=== PATIENT | female | born 1965 ===

== ENCOUNTER → 2020-01-01 14:53 | Outpatient (BNVA) | payer OTHER, SELFPAY | PROVIDERS: PCP Internal Medicine; Visit Provider Anesthesiology | DX: Z76.89 Persons encountering health services in other specified circumstances (principal) ==

== ENCOUNTER 2020-03-10 10:12 | Outpatient (REF) | payer OTHER, SELFPAY ==
--- NOTE | 2020-03-10 10:20 | MM_ITS ---
EXAMINATION: MM SCREENING DIGITAL BREAST TOMOSYNTHESIS, BILATERAL CLINICAL INFORMATION: Screening. Asymptomatic. The lifetime risk of breast cancer based on the Tyrer-Cuzick Model is 7%. COMPARISON: Mammography: 03/05/2019, 01/10/2018, 07/12/2017, 12/30/2016 TECHNIQUE: Digital breast tomosynthesis is performed in both the craniocaudal and mediolateral oblique views along with computer-aided detection (CAD). Synthesized 2D images are generated from the tomosynthesis. Additional left MLO view is provided. FINDINGS: There are scattered areas of fibroglandular density (ACR BI-RADS breast composition Category b). There are no significant masses, abnormal calcifications, or other abnormalities. Parenchymal pattern is similar to prior studies. MM/MM tomosynthesis screening BI IMPRESSION: No mammographic evidence of malignancy. ASSESSMENT: BI-RADS 1: Negative RECOMMENDATION: Routine annual mammography screening. This patient's information was entered into a reminder system with a target due date for their next mammogram.
== END 2020-03-10 10:13 | disposition home or self-care (01) ==
LOC: HO.MAMMO 10:12
PROVIDERS: Visit Provider Hospitalist
DX: Z12.31 Encounter for screening mammogram for malignant neoplasm of breast (principal)
CPT/HCPCS: 77063; 77067

== ENCOUNTER 2020-04-27 07:17 | Outpatient (REF) | payer OTHER, SELFPAY ==
[2020-04-27 08:53] LABS: Amylase 67 U/L (28-100); Lipase 46 U/L (8-78)
== END 2020-04-27 07:18 | disposition home or self-care (01) ==
LOC: HO.LAB 07:17
PROVIDERS: PCP Hospitalist; Visit Provider Hospitalist
DX: R10.9 Unspecified abdominal pain (principal)
CPT/HCPCS: 36415; 82150; 83690

== ENCOUNTER → 2020-05-03 08:01 | Outpatient (BNVA) | payer OTHER, SELFPAY | PROVIDERS: PCP Hospitalist; Visit Provider Nurse Practitioner Family ==

== ENCOUNTER 2020-06-08 06:27 | Outpatient (REF) | payer OTHER, SELFPAY ==
--- NOTE | ~2020-06-08 | FL_ITS ---
EXAMINATION: XR FLUOROSCOPY WITH IMAGES CLINICAL INFORMATION: M47.27 - Other spondylosis with radiculopathy COMPARISON: Radiographs lumbar spine 01/15/2018 TECHNIQUE: Fluoroscopy performed by Fabiana Lyons NP. Fluoroscopy time: 0.4 minutes DAP: 2.03 Gycm2 Images: 2 FINDINGS: There are spinal needles at the outer aspect bilateral L5-S1 neural foramen. There is contrast seen in the nerve sheaths and transforaminal epidural extension. FL/FL guidance in treatment room IMPRESSION: Fluoroscopy for pain management procedures.
== END 2020-06-08 06:28 | disposition home or self-care (01) ==
LOC: HO.RADIR 06:27
PROVIDERS: Visit Provider Anesthesiology
DX: M47.27 Other spondylosis with radiculopathy, lumbosacral region (principal); M51.36 Other intervertebral disc degeneration, lumbar region; M53.3 Sacrococcygeal disorders, not elsewhere classified
CPT/HCPCS: 64483; J3300; Q9967

== ENCOUNTER → 2020-07-13 11:23 | Outpatient (BNVA) | payer OTHER, SELFPAY | PROVIDERS: PCP Hospitalist; Visit Provider Nurse Practitioner Family ==

== ENCOUNTER 2020-07-22 08:57 | Outpatient (REF) | payer OTHER, SELFPAY ==
[2020-07-22 11:25] LABS: Hematocrit 41.1 % (37-47); Hemoglobin 12.7 g/dl (12.0-16.0); Mean Corpuscular HGB Conc 30.9 g/dl (31.0-35.0); Mean Corpuscular Hemoglobin 27.5 pg (27.0-33.0); Mean Platelet Volume 9.4 fL (9.4-12.3); Platelet Count 261 X10*3/uL (160-400); Red Blood Count 4.62 X10*6/uL (4.20-5.50); Red Cell Distribution Width 14.9 % (11.0-16.0); White Blood Count 5.5 X10*3/uL (4.8-10.8)
[2020-07-22 11:47] LABS: Alanine Aminotransferase 17 U/L (0-31); Albumin Level 4.3 g/dL (3.5-5.0); Alkaline Phosphatase 72 U/L (39-117); Anion Gap 12 (12-20); Aspartate Amino Transferase 15 U/L (5-31); Bilirubin Total 0.5 mg/dL (0.0-1.0); Blood Urea Nitrogen 11 mg/dL (9-16); Calcium 9.4 mg/dL (8.4-10.2); Carbon Dioxide 30 mmol/L (22-29); Chloride 108 mmol/L (96-108); Estimated Glomerular Filt Rate > 60; Glucose Fasting 92 mg/dL (60-99); Potassium 4.5 mmol/L (3.3-5.1); Sodium 145 mmol/L (135-145); Total Protein 7.1 g/dL (6.5-8.0)
[2020-07-22 12:08] LABS: TSH reflex Free T4 1.47 uIU/mL (0.32-4.0)
[2020-07-23 04:42] LABS: Triiodothyronine T3 Free 3.2 pg/mL (2.3-4.2)
== END 2020-07-22 08:58 | disposition home or self-care (01) ==
LOC: HO.WFDLDS 08:57
PROVIDERS: Visit Provider Nurse Practitioner Family
DX: R68.89 Other general symptoms and signs (principal)
CPT/HCPCS: 36415; 80053; 84443; 84481; 85027

== ENCOUNTER 2020-09-13 09:32 | Outpatient (REF) | payer OTHER, SELFPAY ==
[2020-09-17 03:31] LABS: HPV mRNA E6/E7 rflx Not Detected (Not Detected)
== END 2020-09-13 09:33 | disposition home or self-care (01) ==
LOC: HO.LAB 09:32
PROVIDERS: PCP Hospitalist; Visit Provider Advanced Practice Midwife
DX: Z01.411 Encounter for gynecological examination (general) (routine) with abnormal findings (principal); Z11.51 Encounter for screening for human papillomavirus (HPV); R39.15 Urgency of urination; R63.5 Abnormal weight gain
CPT/HCPCS: 87624; 88142

== ENCOUNTER 2020-10-21 14:32 | Outpatient (REF) | payer OTHER, SELFPAY ==
[2020-10-21 15:15] LABS: Influenza A PCR NEGATIVE (Negative); Influenza B PCR NEGATIVE (Negative); Resp Syncy Virus RNA Qual PCR NEGATIVE (Negative); SARS COV2 PCR INHOUSE NEGATIVE (Negative)
== END 2020-10-21 14:33 | disposition home or self-care (01) ==
LOC: HO.LNP 14:32
PROVIDERS: Visit Provider Family Medicine
DX: B34.9 Viral infection, unspecified (principal); Z20.822 Contact with and (suspected) exposure to COVID-19
CPT/HCPCS: 0241U

== ENCOUNTER 2020-11-24 15:06 | Outpatient (REF) | payer OTHER, SELFPAY ==
[2020-11-24 16:20] LABS: Alanine Aminotransferase 24 U/L (0-31); Albumin Level 4.6 g/dL (3.5-5.0); Alkaline Phosphatase 78 U/L (39-117); Anion Gap 14 (12-20); Aspartate Amino Transferase 18 U/L (5-31); Bilirubin Total 0.4 mg/dL (0.0-1.0); Blood Urea Nitrogen 14 mg/dL (9-16); Calcium 9.8 mg/dL (8.4-10.2); Carbon Dioxide 26 mmol/L (22-29); Chloride 106 mmol/L (96-108); Estimated Glomerular Filt Rate > 60; Glucose Random 86 mg/dL (60-115); Potassium 4.2 mmol/L (3.3-5.1); Sodium 142 mmol/L (135-145); Total Protein 7.4 g/dL (6.5-8.0)
[2020-11-24 16:40] LABS: TSH reflex Free T4 1.44 uIU/mL (0.32-4.0)
[2020-11-24 17:18] LABS: Erythrocyte Sedimentation Rate 22 MM/HR (0-20)
[2020-11-27 13:55] LABS: TS Negative Control Passed; TS Panel A 1; TS Panel B 1; TS Positive Control Passed; TSpotTB Negative (SeeBelow)
== END 2020-11-24 15:07 | disposition home or self-care (01) ==
LOC: HO.LAB 15:06
PROVIDERS: PCP Hospitalist; Visit Provider Family Medicine
DX: Z00.00 Encounter for general adult medical examination without abnormal findings (principal); Z11.1 Encounter for screening for respiratory tuberculosis; M25.50 Pain in unspecified joint; R53.83 Other fatigue
CPT/HCPCS: 36415; 80053; 84443; 85652; 86481

== ENCOUNTER 2020-11-30 12:17 | Outpatient (REF) | payer OTHER, SELFPAY ==
[2020-11-30 13:47] LABS: Influenza A PCR NEGATIVE (Negative); Influenza B PCR NEGATIVE (Negative); Resp Syncy Virus RNA Qual PCR NEGATIVE (Negative); SARS COV2 PCR INHOUSE NEGATIVE (Negative)
== END 2020-11-30 12:18 | disposition home or self-care (01) ==
LOC: HO.LNP 12:17
PROVIDERS: Visit Provider Family Medicine
DX: Z20.822 Contact with and (suspected) exposure to COVID-19 (principal)
CPT/HCPCS: 0241U

== ENCOUNTER 2021-05-03 15:18 | Outpatient (REF) | payer OTHER, SELFPAY ==
--- NOTE | ~2021-05-03 | MM_ITS ---
EXAMINATION: MM SCREENING DIGITAL BREAST TOMOSYNTHESIS, BILATERAL CLINICAL INFORMATION: Screening. Asymptomatic. The lifetime risk of breast cancer based on the Tyrer-Cuzick Model is 7%. COMPARISON: Mammography: 03/10/2020, 03/17/2019, 01/10/2018 TECHNIQUE: Digital breast tomosynthesis is performed in both the craniocaudal and mediolateral oblique views along with computer-aided detection (CAD). Synthesized 2D images are generated from the tomosynthesis. FINDINGS: There are scattered areas of fibroglandular density (ACR BI-RADS breast composition Category b). There are no significant masses, abnormal calcifications, or other abnormalities. Parenchymal pattern is similar to prior studies. Nodular asymmetry anterior outer right breast on CC view is similar to prior studies. No developing density. There are no significant changes. MM/MM tomosynthesis screening BI IMPRESSION: No mammographic evidence of malignancy. ASSESSMENT: BI-RADS 2: Benign RECOMMENDATION: Routine annual mammography screening. This patient's information was entered into a reminder system with a target due date for their next mammogram.
== END 2021-05-03 15:19 | disposition home or self-care (01) ==
LOC: HO.MAMMO 15:18
PROVIDERS: PCP Hospitalist; Visit Provider Hospitalist
DX: Z12.31 Encounter for screening mammogram for malignant neoplasm of breast (principal)
CPT/HCPCS: 77063; 77067

== ENCOUNTER 2021-05-18 12:14 | Outpatient (REF) | payer OTHER, SELFPAY ==
--- NOTE | ~2021-05-18 | XR_ITS ---
EXAMINATION: XR KNEE, RIGHT CLINICAL INFORMATION: Pain in right knee. COMPARISON: None TECHNIQUE: Four views of the right knee. FINDINGS: Medial Compartment: There is mild joint space narrowing and marginal osteophytes indicative of [id number] osteoarthritis. Lateral Compartment: There are marginal osteophytes indicative of mild osteoarthritis. Patellofemoral Compartment: There are marginal osteophytes indicative of at least mild osteoarthritis. There is a small joint effusion. There is no fracture or bone lesion. Surrounding soft tissues are normal. XR/XR knee RT 2V IMPRESSION: Osteoarthritis of the right knee.
== END 2021-05-18 12:15 | disposition home or self-care (01) ==
LOC: HO.XRAY 12:14
PROVIDERS: PCP Hospitalist; Visit Provider Family Medicine
DX: M25.561 Pain in right knee (principal)
CPT/HCPCS: 73560

== ENCOUNTER → 2021-05-26 13:58 | Outpatient (REF) | payer OTHER, SELFPAY | LOC: HO.SL 13:58 | PROVIDERS: PCP Hospitalist; Visit Provider Nurse Practitioner Family | DX: G47.19 Other hypersomnia (principal); G47.9 Sleep disorder, unspecified; R06.83 Snoring; R53.83 Other fatigue | CPT/HCPCS: 95806 ==

== ENCOUNTER → 2021-07-19 15:29 | Outpatient (BNVA) | payer OTHER, SELFPAY | PROVIDERS: Visit Provider Nurse Practitioner Family | DX: R40.0 Somnolence (principal); R06.83 Snoring; R53.83 Other fatigue | CPT/HCPCS: 99212 ==

== ENCOUNTER 2021-12-03 08:33 | Outpatient (REF) | payer OTHER, SELFPAY ==
[2021-12-03 08:45] LABS: MANUAL DIFF FLAG NO
[2021-12-03 08:59] LABS: Basophils Percent Auto 0.9 % (0-2); Eosinophils Absolute Auto 0.1 X10*3/uL (0.0-0.4); Eosinophils Percent Auto 2.2 % (0-4); Hematocrit 41.5 % (37.0-47.0); Hemoglobin 12.9 g/dl (12.0-16.0); Lymphocytes Absolute Auto 1.8 X10*3/uL (1.2-4.9); Mean Corpuscular HGB Conc 31.1 g/dl (31.0-35.0); Mean Corpuscular Hemoglobin 26.7 pg (27.0-33.0); Mean Corpuscular Volume 85.9 fL (80.0-98.0); Mean Platelet Volume 9.1 fL (9.4-12.3); Monocytes Absolute Auto 0.4 X10*3/uL (0.1-1.2); Monocytes Percent Auto 8.7 % (2-11); Neutrophils Absolute Auto 2.2 x10*3/uL (2.0-8.3); Neutrophils Percent Auto 48.2 % (45-73); Platelet Count 264 X10*3/uL (160-400); Red Blood Count 4.83 X10*6/uL (4.20-5.50); Red Cell Distribution Width 14.5 % (11.0-16.0); White Blood Count 4.6 X10*3/uL (4.8-10.8)
[2021-12-03 09:37] LABS: Alanine Aminotransferase 15 U/L (0-31); Albumin Level 4.5 g/dL (3.5-5.0); Alkaline Phosphatase 74 U/L (39-117); Anion Gap 15 (12-20); Aspartate Amino Transferase 15 U/L (5-31); Bilirubin Total 0.7 mg/dL (0.0-1.0); Blood Urea Nitrogen 11 mg/dL (9-16); Calcium 9.7 mg/dL (8.4-10.2); Carbon Dioxide 28 mmol/L (22-29); Chloride 107 mmol/L (96-108); Cholesterol 181 mg/dL; Estimated Glomerular Filt Rate > 60; Glucose Fasting 90 mg/dL (60-99); HDL Cholesterol 47 mg/dL; LDL Cholesterol Calculated 117 mg/dl; Potassium 4.7 mmol/L (3.3-5.1); Sodium 145 mmol/L (135-145); Total Protein 7.3 g/dL (6.5-8.0); Triglycerides 86 mg/dL
[2021-12-03 10:00] LABS: TSH reflex Free T4 1.54 uIU/mL (0.32-4.0)
[2021-12-03 10:05] LABS: Appearance Urine Clear; Color Urine Yellow; Glucose Urine UA Negative (Negative); Leukocyte Esterase Urine Negative (Negative); Nitrite Urine Negative (Negative); PH 8.5 (5.0-9.0); Urine Blood Negative (Negative); Urine Ketones Negative (Negative); Urine Protein Negative (Neg-Trace)
== END 2021-12-03 08:34 | disposition home or self-care (01) ==
LOC: HO.LAB 08:33
PROVIDERS: Visit Provider Family Medicine
DX: Z00.00 Encounter for general adult medical examination without abnormal findings (principal)
CPT/HCPCS: 36415; 80053; 80061; 81003; 84443; 85025

== ENCOUNTER 2022-01-03 15:44 | Emergency (ER) | payer OTHER, SELFPAY ==
--- NOTE | 2022-01-03 | ECG_ITS ---
Test Reason : CHEST PAIN Blood Pressure : / mmHG Vent. Rate : 080 BPM Atrial Rate : 080 BPM P-R Int : 116 ms QRS Dur : 078 ms QT Int : 366 ms P-R-T Axes : 063 062 046 degrees QTc Int : 422 ms Sinus rhythm with marked sinus arrhythmia Otherwise normal ECG Sinus Arrhythmia is new Referred By: Generic ED Physician Electronically Signed By:SUSIE PHELPS MD
--- NOTE | ~2022-01-03 | XR_ITS ---
EXAMINATION: XR CERVICAL SPINE CLINICAL INFORMATION: Neck pain COMPARISON: 05/22/2018 TECHNIQUE: 3 views of the cervical spine were obtained. FINDINGS: Some minimal spondylitic changes are seen with some endplate osteophytes at C4-C5 and C5-C6 however vertebral body heights and disc spaces are well maintained. No prevertebral soft tissue swelling, fractures or subluxations are seen. XR/XR cervical spine 2V IMPRESSION: Unremarkable examination.
[2022-01-03 16:08] VITALS: BP 152/82; PULSE 90; RESP 20; TEMP 36.1; O2SAT 99; BMI 27.4
[2022-01-03 19:08] LABS: MANUAL DIFF FLAG NO
[2022-01-03 19:09] LABS: Basophils Percent Auto 0.4 % (0-2); Eosinophils Absolute Auto 0.1 X10*3/uL (0.0-0.4); Eosinophils Percent Auto 1.2 % (0-4); Hematocrit 43.3 % (37.0-47.0); Hemoglobin 13.6 g/dl (12.0-16.0); Imm Gran Abs Auto 0.02 X10*3/uL (0.00-0.03); Imm Gran Pct Auto 0.3 % (0.0-0.4); Lymphocytes Absolute Auto 2.5 X10*3/uL (1.2-4.9); Mean Corpuscular HGB Conc 31.4 g/dl (31.0-35.0); Mean Corpuscular Volume 86.1 fL (80.0-98.0); Mean Platelet Volume 8.8 fL (9.4-12.3); Monocytes Absolute Auto 0.5 X10*3/uL (0.1-1.2); Monocytes Percent Auto 6.1 % (2-11); Neutrophils Absolute Auto 4.7 x10*3/uL (2.0-8.3); Platelet Count 258 X10*3/uL (160-400); Red Blood Count 5.03 X10*6/uL (4.20-5.50); Red Cell Distribution Width 14.7 % (11.0-16.0); White Blood Count 7.7 X10*3/uL (4.8-10.8)
[2022-01-03 19:27] LABS: Anion Gap 17 (12-20); Blood Urea Nitrogen 14 mg/dL (9-16); Calcium 9.9 mg/dL (8.4-10.2); Carbon Dioxide 26 mmol/L (22-29); Chloride 105 mmol/L (96-108); Creatinine Clr Calc Pharmacy 89.3; Estimated Glomerular Filt Rate > 60; Glucose Random 81 mg/dL (60-115); Potassium 4.6 mmol/L (3.3-5.1); Sodium 143 mmol/L (135-145)
[2022-01-03 19:35] LABS: Troponin-I High Sensitivity < 3.5 ng/L (<3.5-17.0)
== END 2022-01-04 00:10 | disposition left against medical advice (07) ==
LOC: HO.ED 01-04 00:09
PROVIDERS: Emergency Provider Emergency Medicine; PCP Family Medicine
DX: R51.9 Headache, unspecified (principal); R07.9 Chest pain, unspecified; M54.2 Cervicalgia
CPT/HCPCS: 36415; 72040; 80048; 84484; 85025; 93005; 99283

== ENCOUNTER 2022-04-03 09:00 | Outpatient (RCR) | payer OTHER, SELFPAY ==
--- NOTE | 2022-02-17 09:13 | MHC.PT.EP ---
[facility] [place] [facility] [place] [facility] [place] Office [address] Margaret Cruz [address] [phone] F: [phone] F: [phone] F: [phone] F: [phone] Physical Therapy Plan of Care Date of Evaluation: Date of Surgery: N/A Diagnosis: dorsalgia (RC) Assessment: pt is a 56 y/o female presenting to physical therapy w/ referring diagnosis of dorsalgia. Impairments include pain, decreased range of motion, decreased strength, impaired functional mobility, impaired postural awareness, and altered ambulation mechanics. pt is a good candidate for skilled PT due to age, potential remediation of impairments, typyical disease/condition progression and prognosis, comorbidities, and motivation. pt would benefit from skilled PT intervention to provide a tailored strengthening and stretching exercise program, functional training, gait training, postural re-training, neuromuscular re-education, modalities as needed for pain, equipment safety demonstration. Frequency and Duration: The patient will be seen 2x/wk for 4 wks Short Term Goals: pt will be I w/ HEP to promote self-management of condition. pt will improve R knee extension strength to 5/5 to promote ease in navigating stairs. Fci Goals: pt will improve lumbar flexion by 25% to promote ease in lower body dressing. pt will report a statistically significant improvement in self-reported outcome measure, Beatriz, to promote return to PLOF. Treatment Plan: Modalities to reduce pain, spasms and effusion. Manual therapy to restore motion and function. Therapeutic exercise to improve strength and flexibility. Neuromuscular re-education for posture and balance. Therapeutic activities to return to functional activities of daily living. Electronically signed by: Alexsandra Schmitt PT, DPT Please sign and return to therapist. Thank you for your referral.
--- NOTE | 2022-04-04 17:33 | MHC.PT.DC ---
[facility] [place] [facility] [place] Office [place] Office [address] Margaret Cruz [address] [phone] F: [phone] F: [phone] F: [phone] F: [phone] Physical Therapy Discharge Report Diagnosis: dorsalgia (RC) Date of Surgery: N/A Date of Evaluation: 02/17/22 Date of Discharge: 04/04/22 Treatments to Date: 10 Cancellations to Date: 0 No Shows to Date: 0 Discharge Status: Achieved Goals Improved Function Independent with HEP Discharge Summary: Pt was seen for skilled PT from 02/17/22-04/03/22. She has made good progress since SOC. She met her STGs and made good progress toward her LTGs. She overall had a decrease in pain and demonstrates improvements in flexibility noted throughout exercises. She improved her score on Modified Oswestry Low Back Pain Disability Questionnaire from 24/50 on initial PT evaluation to 15/50 today. She is I and compliant with HEP. Pt is being D/C from skilled PT at this time. Provided pt with printed, updated copy of HEP at last session on 04/03/22 and pt verbalized understanding. Pt reports no further questions or concerns for PT at this time. Electronically signed by: Kristina Gonsalves, PT, DPT Please sign and return to therapist. Thank you for your referral.
== END 2022-04-04 17:33 | disposition home or self-care (01) ==
LOC: HO.PT 09:00
PROVIDERS: PCP Family Medicine; Visit Provider Family Medicine
DX: M54.9 Dorsalgia, unspecified (principal)
CPT/HCPCS: 97110; 97140; 97162

== ENCOUNTER 2022-04-10 11:37 | Outpatient (REF) | payer OTHER, SELFPAY ==
[2022-04-10 17:33] LABS: CT PCR NOT DETECTED (Not Detect.); NG PCR NOT DETECTED (Not Detect.)
[2022-04-11 11:20] LABS: BV Int Neg Control Negative (Negative); BV Int Pos Control Positive (Positive)
== END 2022-04-10 11:38 | disposition home or self-care (01) ==
LOC: HO.LAB 11:37
PROVIDERS: PCP Family Medicine; Visit Provider Advanced Practice Midwife
DX: N95.0 Postmenopausal bleeding (principal); N95.1 Menopausal and female climacteric states; Z11.3 Encounter for screening for infections with a predominantly sexual mode of transmission
CPT/HCPCS: 0353U; 87480; 87510; 87660; 99212

== ENCOUNTER 2022-04-10 11:59 | Outpatient (REF) | payer OTHER, SELFPAY | END 2022-04-10 12:00 | disposition home or self-care (01) | LOC: HO.LNP 11:59 | PROVIDERS: Visit Provider Advanced Practice Midwife | DX: Z13.89 Encounter for screening for other disorder (principal) ==

== ENCOUNTER 2022-05-02 10:48 | Outpatient (REF) | payer OTHER, SELFPAY ==
--- NOTE | ~2022-05-02 | US_ITS ---
EXAMINATION: US PELVIS CLINICAL INFORMATION: Postmenopausal bleeding. COMPARISON: None TECHNIQUE: Ultrasound of the pelvis is performed using both transabdominal and transvaginal transducers along with Doppler. Transvaginal imaging is performed due to inadequate visualization transabdominally. FINDINGS: Uterus: The uterus is anteverted and measures 5.7 x 2.6 x 3.8 cm. The uterus appears normal. There is a nabothian cyst in the cervix. The double wall endometrial thickness is 3 mm. Trace endometrial fluid. The uterus is smooth in contour and has normal myometrial echogenicity. No visible fibroid. Adnexa: Both ovaries are visualized. There is no pelvic ascites or fluid collection. Right ovary measures 1.6 x 1.0 x 1.4 cm. There is a 2 mm calcification in the right ovary. Left ovary measures 2.0 x 1.0 x 1.7 cm. The left ovary appears normal. US/US pelvic and transvaginal IMPRESSION: Trace endometrial fluid. The endometrial thickness is 3 mm.
== END 2022-05-02 10:49 | disposition home or self-care (01) ==
LOC: HO.US 10:48
PROVIDERS: Visit Provider Advanced Practice Midwife
DX: N95.0 Postmenopausal bleeding (principal)
CPT/HCPCS: 76830; 76856

== ENCOUNTER 2022-05-15 14:53 | Outpatient (REF) | payer OTHER, SELFPAY ==
--- NOTE | ~2022-05-15 | MM_ITS ---
EXAMINATION: MM SCREENING DIGITAL BREAST TOMOSYNTHESIS, BILATERAL CLINICAL INFORMATION: Screening. Asymptomatic. The lifetime risk of breast cancer based on the Tyrer-Cuzick Model is 7%. COMPARISON: Mammography: 05/03/2021, 03/10/2020, 03/05/2019, 01/10/2018 TECHNIQUE: Digital breast tomosynthesis is performed in both the craniocaudal and mediolateral oblique views along with computer-aided detection (CAD). Synthesized 2D images are generated from the tomosynthesis. FINDINGS: There are scattered areas of fibroglandular density (ACR BI-RADS breast composition Category b). There are no significant masses, abnormal calcifications, or other abnormalities. No architectural abnormality or developing density or significant change from prior studies. MM/MM tomosynthesis screening BI IMPRESSION: No mammographic evidence of malignancy. ASSESSMENT: BI-RADS 1: Negative RECOMMENDATION: Routine annual mammography screening. This patient's information was entered into a reminder system with a target due date for their next mammogram.
== END 2022-05-15 14:54 | disposition home or self-care (01) ==
LOC: HO.MAMMO 14:53
PROVIDERS: PCP Hospitalist; Visit Provider Hospitalist
DX: Z12.31 Encounter for screening mammogram for malignant neoplasm of breast (principal)
CPT/HCPCS: 77063; 77067

== ENCOUNTER → 2022-06-23 07:58 | Outpatient (BNVA) | payer OTHER, SELFPAY | PROVIDERS: PCP Hospitalist; Visit Provider Advanced Practice Midwife ==

== ENCOUNTER 2022-11-21 10:01 | Outpatient (REF) | payer OTHER, SELFPAY ==
[2022-11-22 11:00] LABS: BV Int Neg Control Negative (Negative); BV Int Pos Control Positive (Positive)
== END 2022-11-21 10:02 | disposition home or self-care (01) ==
LOC: HO.LAB 10:01
PROVIDERS: PCP Hospitalist; Visit Provider Advanced Practice Midwife
DX: Z01.419 Encounter for gynecological examination (general) (routine) without abnormal findings (principal); N89.8 Other specified noninflammatory disorders of vagina
CPT/HCPCS: 87480; 87510; 87660; 99396

== ENCOUNTER 2022-11-21 10:01 | Outpatient (AMB) | payer OTHER, SELFPAY ==
--- NOTE | 2022-11-21 10:06 | MHC.OFFVIS ---
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 Scribed for NILDA Dotson by Jeanette Mendoza medical office worker, on 11/21/2022 at 10:38 am EST. Business Development Sales Executive: Business Development Sales Executive Present (Laura) Allergies naproxen [Naproxen] Allergy (Intermediate, Verified 11/21/22 10:07) RASH HPI HPI Comments History of Present Illness Details She is a postmenopausal woman presenting for annual exam. Doing well with no family practice doctor concerns. Patient admits she tries to eat a healthy diet including Calcium and Vitamin D. She stays active with exercise. Currently not sexually active. Admits vaginal itching, odor and irritation. Denies any new soaps or detergents. Denies any VB since 01/2022, she did not return for the EMB due to another health issue at that time. STD screening offered; she declines. BV testing offered; she accepts. Denies family hx of breast, colon and ovarian cancer. Last pap smear 09/13/20. Last mammogram 05/15/22. UTD on colonoscopy. [facility] Medical History Cervical radicular pain Fall Right knee pain Sleep disorder, unspecified Excessive daytime sleepiness Pain in joint involving multiple sites Pain of right sacroiliac joint Disc degeneration, lumbar Osteoarthritis of lower back Spondylosis of lumbosacral spine with radiculopathy Surgical History H/O cardiac radiofrequency ablation History of tubal ligation Family History Father No problems noted. 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 Current occupational exposures/hazards: No Cognitive needs: No Hearing needs: No Vision needs: Yes (glasses) Female Reproductive History Menstrual control method: permanent sterilization Permanent Sterilization: BTL Total pregnancies: 3 Full term: 3 Number of Living Children: 3 Date of last pap smear: 09/13/20 (neg pap and hpv) Date of Mammogram: 05/15/22 (Birad 1) Physical Exam Vital Signs: Last Vital Signs BP 90/64 11/21/22 10:07 BMI result Body Mass Index 29.3 Const General: cooperative, healthy appearing, no acute distress, well developed and alert Orientation/consciousness: patient oriented x3 HEENT Head: Yes normal to inspection Eyes General: appearance normal, both eyes and all related structures Neck Neck: Yes normal visual inspection Thyroid: Thyroid normal Chest Chest palpation & inspection: normal inspection of the chest Breast/axilla inspection: normal inspection of the breasts (no puckering, dimpling, peau de orange, retraction, discharge, masses) Breast/axilla palpation: normal palpation of the breasts Resp Effort & Inspection: normal respiratory effort GI Inspection: Yes normal to inspection Palpation (GI): Soft to palpation (to palpation) Rectal Exam - Female: deferred General: Yes bladder normal to inspection External Female Exam: normal external appearance and normal appearance of the urethra Speculum Exam - Vagina: normal appearance of the vagina, normal palpation and vagina atrophic Speculum Exam - Cervix: normal appearance of the cervix and normal palpation Bimanual exam- vagina & uterus: normal palpation and normal palpation Bimanual Exam- Adnexa, other: normal adnexae and no masses Skin General skin exam: no rashes or lesions noted Neuro General: patient oriented x3 Cognition (Neuro): normal cognition Extrem General: Yes normal to inspection Psych Attitude: cooperative Thought process: Normal thought process present Assessment & Plan Assessment & Plan (1) Encounter for well woman exam: Code(s): Z01.419 - Encounter for gynecological examination (general) (routine) without abnormal findings Plan: Discussed: Current recommendations for pap smears per ASCCP guidelines. Breast awareness and periodic self breast exams. Encouraged yearly mammograms. Maintaining a healthy lifestyle including a well balanced diet including Calcium and Vitamin D and routine exercise. The EMB purpose was explained to rule out atypia, hyperplasia and uterine cancer. Reviewed procedure and instructed to take ibuprofen with food 1 hour prior to procedure, or Tylenol if GI upset as alternative. Contact office with any PMB. All of her questions and concerns were addressed to the best of my ability. RTO in 1 year for AG. (2) Vaginal itching: Code(s): N89.8 - Other specified noninflammatory disorders of vagina Plan: BV testing done today. Await results and treat accordingly. Advised to clean with water only, no soaps to the area, dry well, apply Aquaphor or Vaseline and wear cotton underwear. (3) Vaginal odor: Code(s): N89.8 - Other specified noninflammatory disorders of vagina (4) Vaginal irritation: Code(s): N89.8 - Other specified noninflammatory disorders of vagina Orders: Orders Bacterial Vaginosis Panel Today N89.8 - Other specified noninflammatory disorders of vagina Coding Level of Care Code Est Pt Prev Care 40-64y(41671) Diagnoses Encounter for well woman exam Z01.419 Vaginal itching N89.8 Vaginal odor N89.8 Vaginal irritation N89.8
[2022-11-21 10:07] VITALS: BP 90/64; BMI 29.3
== END 2022-11-21 11:28 | disposition home or self-care (01) ==
PROVIDERS: PCP Hospitalist; Visit Provider Advanced Practice Midwife
DX: Z01.419 Encounter for gynecological examination (general) (routine) without abnormal findings (principal); N89.8 Other specified noninflammatory disorders of vagina
CPT/HCPCS: 99396

== ENCOUNTER 2022-11-28 15:34 | Outpatient (AMB) | payer OTHER, SELFPAY ==
[2022-11-28 15:35] VITALS: BP 94/62; PULSE 90; O2SAT 97; BMI 29.5
--- NOTE | 2022-11-28 15:35 | A.OFFPC_ITS ---
Vital Signs 11/28/22 15:35 Height 5 ft 5 in Weight 177 lb 6 oz BMI 29.5 BP 94/62 Blood Pressure Location Lt brachial Position Sitting Pulse 90 Pulse Source Pulse Oximeter Pulse Oximetry (%) 97 Oxygen Delivery Method Room Air Intake Visit Reasons: CPE Intake Note: Patient is here for her physical today. She would like to discuss test to see hormone levels. Allergies naproxen [Naproxen] Allergy (Intermediate, Verified 11/28/22 15:39) RASH Tobacco use date assessed: 11/28/22 Dental Screening Dental Screen Date: 11/28/22 Did you have a dental visit in the last 12 months?: Yes Did you have a dental problem in the last 6 months where you did not have access to dental care?: No Was dental information given to patient?: Patient has dentist HPI CPE HPI Details 57 y/o female presents for an extended e xam with f/u labs and health maintenance. No recent labs to review. Pt reports ongoing joint pain. She reports she has trialed duloxetine 20mg before once a day but did not help much. [facility] Medical History Cervical radicular pain Fall Right knee pain Sleep disorder, unspecified Excessive daytime sleepiness Pain in joint involving multiple sites Pain of right sacroiliac joint Disc degeneration, lumbar Osteoarthritis of lower back Spondylosis of lumbosacral spine with radiculopathy Surgical History H/O cardiac radiofrequency ablation History of tubal ligation Family History Father No problems noted. 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 Christopher Jackson, Cielo Moya, Phil Boyd and colleagues, with an educational deanne from [employer]. Review of Systems Const Denies chills, Denies fatigue, Denies fever(s), Denies headache(s) and Denies weakness Eyes Denies change in vision ENT Denies dizziness, Denies headache(s), Denies hearing loss, Denies nasal congestion, Denies sinus pain, Denies sinus pressure and Denies sore throat Card Denies chest pain, Denies lightheadedness, Denies dyspnea and Denies other (palpitations) Resp Denies cough, Denies dyspnea and Denies wheezing GI Denies abdominal pain, Denies melena, Denies hematochezia, Denies change in bowel habits, Denies dyspepsia and Denies nausea Denies hematuria and Denies dysuria Musc Denies abnormal gait, Denies myalgias, Denies arthralgias, Denies numbness and Denies tingling Skin/Breast Denies rash, Denies unusual bruising and Denies wounds Neuro Denies abnormal gait, Denies dizziness, Denies headache(s), Denies memory loss, Denies numbness, Denies Sensory deficit (Neuro), Denies tingling and Denies weakness Psych Denies anxiety, Denies depression and Denies memory loss Endo Denies cold intolerance, Denies fatigue, Denies heat intolerance, Denies polydipsia and Denies polyuria Tejas/Lymph Denies easy bleeding and Denies easy bruising Aller/Immun Denies wheezing Physical exam (Primary Care) Vital Signs: Last Vital Signs Pulse 90 11/28/22 15:35 BP 94/62 11/28/22 15:35 Pulse Ox 97 11/28/22 15:35 Oxygen Delivery Method Room Air 11/28/22 15:35 BMI result Body Mass Index 29.5 Tobacco/Smoking Status: Tobacco use Status Tobacco use date assessed 11/28/22 11/28/22 15:39 Patient Tobacco Use Status Never used Tobacco 11/28/22 15:38 e-Cigarette/Vaping Use Never Used 11/28/22 15:38 Thrive Assessment: Date of Thrive Assessment Date Thrive assessed 11/25/21 11/28/22 15:38 Const General: no acute distress, well developed, alert and awake Nutritional Appearance: well nourished Orientation/consciousness: patient oriented x3 [facility] Head: Yes normocephalic and Yes atraumatic Ears: hearing grossly normal bilaterally and TM's normal bilaterally General nose exam: Normal external nose present and Normal nares present Mouth: Normal oral and palatal mucosa present and moist mucous membranes Teeth and gingiva: dentition normal Throat: Yes posterior oropharynx normal Eyes General: appearance normal, both eyes and all related structures Pupils: Equal, round and reactive pupils present and Pupil accommodation reflex normal EOM: EOMs intact bilaterally Neck Neck: Yes normal visual inspection, Yes no lymphadenopathy and Yes trachea midline Thyroid: Thyroid normal Carotids: no bruits Lymphatic: no lymphadenopathy noted Chest Chest palpation & inspection: normal inspection of the chest Resp Effort & Inspection: normal respiratory effort Auscultation: clear to auscultation bilaterally Cardio Rate: regular rate Rhythm: regular rhythm Heart sounds: S1 normal heart sound present, S2 normal heart sound present, no gallops, no murmurs and no rubs Bruits: no abdominal aortic bruits and no carotid bruits GI Palpation (GI): No Abdominal aortic bruit present, Soft to palpation, nontender, No hepatosplenomegaly present and No Rebound tenderness present Auscultation: normal bowel sounds General: Yes no CVA tenderness Back/Spine/Pelvis Back: no CVA tenderness Cervical Spine: cervical ROM normal and No Cervical spine tenderness Thoracic/Lumbar Spine: thoraco-lumbar ROM normal, No pain with thoraco-lumbar ROM, No thoracic spinal tenderness and No lumbar spinal tenderness Skin Lesions: no lesions Rashes: no rashes Trauma: no lacerations or abrasions Wounds: no wounds Nails: normal Neuro General: patient oriented x3 Cranial nerves: Yes Equal, round and reactive pupils present Cognition (Neuro): normal cognition Gait exam (Neuro): Normal gait present Motor exam (neuro): 5/5 motor strength present throughout Sensory Exam: No Sensory deficit (Neuro) Deep tendon reflexes (DTR's): Right patellar reflex intensity grade: 2+ and Left patellar reflex intensity grade: 2+ Extrem General: Yes normal to inspection and No edema Psych Appearance: grossly normal Affect: normal affect Attitude: cooperative Thought process: Normal thought process present Assessment and Plan Assessment & Plan (1) Pain in joint involving multiple sites: Code(s): M25.50 - Pain in unspecified joint Plan: Ongoing?joint?pain;?polymyalgia Most?consistent?with?fibromyalgia?but?will?check?inflammatory?markers?to?rule?ou t?other?causes Will?increase?duloxetine Will?refill?her?gabapentin Follow-up?with?therapy Continue?regular?exercise (2) Breast cancer screening by mammogram: Code(s): Z12.31 - Encounter for screening mammogram for malignant neoplasm of breast Plan: Up-to-date?with?mammogram (3) Screening for colon cancer: Code(s): Z12.11 - Encounter for screening for malignant neoplasm of colon Plan: Colonoscopy?with??Mirza Up-to-date (4) Screening for cervical cancer: Code(s): Z12.4 - Encounter for screening for malignant neoplasm of cervix Plan: Up-to-date.??Follow-up?with?photonics engineering technician?as?recommended (5) Adult general medical exam: Code(s): Z00.00 - Encounter for general adult medical examination without abnormal findings Plan: 57-year-old?female?presents?for?an?extended?exam Encouraged?healthy?diet?with?active?lifestyle?and?plenty?of?exercise Orders: Orders Comprehensive Crowell. Panel Fast Today Z00.00 - Encounter for general adult medical examination without abnormal findings Microalbumin, Random (w Creat) Today I10 - Essential (primary) hypertension TSH reflex Free T4 Today Z00.00 - Encounter for general adult medical examination without abnormal findings Erythrocyte Sedimentation Rate Today M25.50 - Pain in unspecified joint Lipid Panel Today Z00.00 - Encounter for general adult medical examination without abnormal findings UA and rflx microscopic Today Z00.00 - Encounter for general adult medical examination without abnormal findings CRP High Sensitivity Today M25.50 - Pain in unspecified joint Medications: New duloxetine 30 mg PO BID 60 caps 2RF 30 days Coding Level of Care Code Est Pt Level 4 (59364) Diagnoses Pain in joint involving multiple sites M25.50 Breast cancer screening by mammogram Z12.31 Screening for colon cancer Z12.11 Screening for cervical cancer Z12.4 Adult general medical exam Z00.00
== END 2022-11-28 16:04 | disposition home or self-care (01) ==
PROVIDERS: PCP Family Medicine; Visit Provider Family Medicine
DX: M25.50 Pain in unspecified joint (principal); Z12.31 Encounter for screening mammogram for malignant neoplasm of breast; Z12.11 Encounter for screening for malignant neoplasm of colon; Z12.4 Encounter for screening for malignant neoplasm of cervix; Z00.00 Encounter for general adult medical examination without abnormal findings
CPT/HCPCS: 99214

== ENCOUNTER 2022-11-29 08:10 | Outpatient (REF) | payer OTHER, SELFPAY ==
[2022-11-29 09:36] LABS: Erythrocyte Sedimentation Rate 17 MM/HR (0-20)
[2022-11-29 09:38] LABS: Appearance Urine Clear; Color Urine Yellow; Glucose Urine UA Negative (Negative); Leukocyte Esterase Urine Moderate (2+) (Negative); Nitrite Urine Negative (Negative); UMIC TRIGGER UA YES; Urine Blood Negative (Negative); Urine Ketones Negative (Negative); Urine Protein Negative (Neg-Trace)
[2022-11-29 09:45] LABS: Alanine Aminotransferase 16 U/L (0-31); Albumin Level 4.2 g/dL (3.5-5.0); Alkaline Phosphatase 69 U/L (39-117); Anion Gap 13 (12-20); Aspartate Amino Transferase 14 U/L (5-31); Bilirubin Total 0.6 mg/dL (0.0-1.0); Blood Urea Nitrogen 14 mg/dL (9-16); Calcium 9.5 mg/dL (8.4-10.2); Carbon Dioxide 26 mmol/L (22-29); Chloride 107 mmol/L (96-108); Cholesterol 185 mg/dL (<200); Estimated Glomerular Filt Rate > 60; Glucose Fasting 100 mg/dL (60-99); HDL Cholesterol 42 mg/dL (>40); LDL Cholesterol Calculated 128 mg/dL (<100); Potassium 4.5 mmol/L (3.3-5.1); Sodium 141 mmol/L (135-145); Total Protein 7.4 g/dL (6.5-8.0); Triglycerides 76 mg/dL (<150)
[2022-11-29 09:51] LABS: Creatinine Urine 128.57 mg/dL; Microalbum/Creatinine Ratio Ur 4.6 ug/mg cr (<30)
[2022-11-29 10:09] LABS: TSH reflex Free T4 1.47 uIU/mL (0.32-4.0)
[2022-11-29 10:26] LABS: Bacteria Urine None Seen (None Seen); Hyaline Casts Urine 0-2 /LPF (0-2); RBC Urine 0-2 /HPF (0-2); WBC Urine 0-5 /HPF (0-5)
[2022-12-01 14:00] LABS: CRP High Sensitivity >10.0 mg/L
== END 2022-11-29 08:11 | disposition home or self-care (01) ==
LOC: HO.LAB 08:10
PROVIDERS: PCP Family Medicine; Visit Provider Family Medicine
DX: Z00.00 Encounter for general adult medical examination without abnormal findings (principal); M25.50 Pain in unspecified joint; I10 Essential (primary) hypertension
CPT/HCPCS: 36415; 80053; 80061; 81001; 82043; 82570; 84443; 85652; 86141

== ENCOUNTER 2023-01-08 09:08 | Outpatient (REF) | payer OTHER, SELFPAY ==
[2023-01-08 09:22] LABS: MANUAL DIFF FLAG NO
[2023-01-08 10:24] LABS: Basophils Percent Auto 0.6 % (0-2); Eosinophils Absolute Auto 0.1 X10*3/uL (0.0-0.4); Eosinophils Percent Auto 2.9 % (0-4); Hematocrit 43.2 % (37.0-47.0); Hemoglobin 12.7 g/dl (12.0-16.0); Imm Gran Abs Auto 0.01 X10*3/uL (0.00-0.03); Imm Gran Pct Auto 0.2 % (0.0-0.4); Lymphocytes Absolute Auto 1.8 X10*3/uL (1.2-4.9); Lymphocytes Percent Auto 35.6 % (20-40); Mean Corpuscular HGB Conc 29.4 g/dl (31.0-35.0); Mean Corpuscular Hemoglobin 25.6 pg (27.0-33.0); Mean Corpuscular Volume 86.9 fL (80.0-98.0); Monocytes Absolute Auto 0.4 X10*3/uL (0.1-1.2); Monocytes Percent Auto 8.4 % (2-11); Neutrophils Absolute Auto 2.6 x10*3/uL (2.0-8.3); Neutrophils Percent Auto 52.3 % (45-73); Platelet Count 274 X10*3/uL (160-400); Red Blood Count 4.97 X10*6/uL (4.20-5.50); Red Cell Distribution Width 15.3 % (11.0-16.0); White Blood Count 4.9 X10*3/uL (4.8-10.8)
[2023-01-08 10:51] LABS: Anion Gap 12 (12-20); Blood Urea Nitrogen 11 mg/dL (9-16); Calcium 9.8 mg/dL (8.4-10.2); Carbon Dioxide 30 mmol/L (22-29); Chloride 106 mmol/L (96-108); Estimated Glomerular Filt Rate > 60; Glucose Fasting 91 mg/dL (60-99); Potassium 4.3 mmol/L (3.3-5.1); Rheumatoid Factor < 13.0 IU/mL (<15.0); Sodium 144 mmol/L (135-145)
[2023-01-08 11:13] LABS: Appearance Urine Clear; Color Urine Yellow; Glucose Urine UA Negative (Negative); Leukocyte Esterase Urine Trace (Negative); Nitrite Urine Negative (Negative); UMIC TRIGGER UA YES; Urine Blood Negative (Negative); Urine Ketones Negative (Negative); Urine Protein Negative (Neg-Trace)
[2023-01-08 11:15] LABS: Erythrocyte Sedimentation Rate 16 MM/HR (0-20)
[2023-01-08 11:34] LABS: Bacteria Urine None Seen (None Seen); Hyaline Casts Urine 0-2 /LPF (0-2); RBC Urine 0-2 /HPF (0-2); WBC Urine 0-5 /HPF (0-5)
[2023-01-09 08:54] LABS: Lyme Abs Screen <0.90 index
[2023-01-09 16:37] LABS: CRP High Sensitivity >10.0 mg/L
== END 2023-01-08 09:09 | disposition home or self-care (01) ==
LOC: HO.LAB 09:08
PROVIDERS: PCP Family Medicine; Visit Provider Family Medicine
DX: Z00.00 Encounter for general adult medical examination without abnormal findings (principal); R73.01 Impaired fasting glucose; M25.50 Pain in unspecified joint
CPT/HCPCS: 36415; 80048; 81001; 81003; 85025; 85652; 86141; 86431; 86617; 86618

== ENCOUNTER 2023-01-23 13:13 | Outpatient (AMB) | payer OTHER, SELFPAY ==
[2023-01-23 13:40] VITALS: BP 114/70; PULSE 83; RESP 13; TEMP 36.4; O2SAT 98; BMI 28.0
--- NOTE | 2023-01-23 13:40 | A.OFFPC_ITS ---
Vital Signs 01/23/23 13:40 Height 5 ft 5 in Weight 168 lb BMI 28.0 BP 114/70 Blood Pressure Location Lt brachial Position Sitting Respiration 13 Pulse 83 Pulse Source Pulse Oximeter Temp 97.6 F Temp Source Temporal Artery Scan Pulse Oximetry (%) 98 Oxygen Delivery Method Room Air Intake Visit Reasons: f/u arthralgia?and?myalgia?with?elevated CRP Intake Note: Patient would like a letter stating that her health condition are preventing her from working and that thye medications being taken can alter ability to perform duties. Technical Report Writer Required: No Accompanied by: Self / Same As Patient Allergies naproxen [Naproxen] Allergy (Intermediate, Verified 01/23/23 13:49) RASH Tobacco use date assessed: 11/28/22 Dental Screening Dental Screen Date: 01/23/23 Did you have a dental visit in the last 12 months?: Yes Did you have a dental problem in the last 6 months where you did not have access to dental care?: No Was dental information given to patient?: Patient has dentist HPI f/u arthralgia?and?myalgia?with?elevated CRP HPI Details 57 y/o female presents to f/u polyarthal [place] and muscle pain. CRP had been greater than 10. Repeating some labs. Labs were drawn . Reviewed labs with pt. Ongoing CRP greater than 10. Fasting glucose within normal limits. Pt reports intermittent chest pressure/palpitations. She describes pain as sharp and quick. Pain or discomfort seems to be nonexertional and lasts 5 minutes or less. [facility] Medical History Cervical radicular pain Fall Right knee pain Sleep disorder, unspecified Excessive daytime sleepiness Pain of right sacroiliac joint Disc degeneration, lumbar Osteoarthritis of lower back Spondylosis of lumbosacral spine with radiculopathy Surgical History H/O cardiac radiofrequency ablation History of tubal ligation Family History Father Liver cancer Mother Hypertension Macular degeneration Son Drug addict Other Substance use disorder Social History Household Members: Spouse Household Members Other:: GRANDDAUGHTER Housing: House Alcohol intake: never Patient Tobacco Use Status: Never used Tobacco e-Cigarette/Vaping Use: Never Used Second Hand Smoke Exposure: No service: No Current occupational status: previously employed 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 Christopher Jackson, Cielo Moya, Phil Boyd and colleagues, with an educational deanne from [employer]. Review of Systems Const Denies chills, Denies fatigue, Denies fever(s), Denies headache(s) and Denies weakness ENT Denies dizziness and Denies headache(s) Card Reports chest pain and Denies dyspnea Resp Denies cough, Denies dyspnea, Denies wheezing and Denies other ( shortness of breath) Musc Denies numbness and Denies tingling Neuro Denies dizziness, Denies headache(s), Denies numbness, Denies tingling, Denies paresthesias and Denies weakness Psych Denies anxiety and Denies depression Endo Denies fatigue Aller/Immun Denies wheezing Physical exam (Primary Care) Vital Signs: Last Vital Signs Temp 97.6 F 01/23/23 13:40 Pulse 83 01/23/23 13:40 Resp 13 01/23/23 13:40 BP 114/70 01/23/23 13:40 Pulse Ox 98 01/23/23 13:40 Oxygen Delivery Method Room Air 01/23/23 13:40 BMI result Body Mass Index 28.0 Tobacco/Smoking Status: Tobacco use Status Tobacco use date assessed 11/28/22 01/23/23 13:44 Patient Tobacco Use Status Never used Tobacco 01/23/23 13:44 e-Cigarette/Vaping Use Never Used 01/23/23 13:44 Thrive Assessment: Date of Thrive Assessment Date Thrive assessed 11/25/21 01/23/23 13:44 Const General: no acute distress and well developed Nutritional Appearance: well nourished Orientation/consciousness: patient oriented x3 HENMT Head: Yes normocephalic and Yes atraumatic Eyes General: appearance normal, both eyes and all related structures Pupils: Equal, round and reactive pupils present EOM: EOMs intact bilaterally Resp Effort & Inspection: normal respiratory effort Auscultation: clear to auscultation bilaterally Cardio Rate: regular rate Rhythm: regular rhythm Heart sounds: S1 normal heart sound present, S2 normal heart sound present, no gallops, no murmurs and no rubs Neuro General: patient oriented x3 and gait normal Cranial nerves: Yes Equal, round and reactive pupils present Psych Affect: normal affect Assessment and Plan Assessment & Plan (1) Palpitation: Code(s): R00.2 - Palpitations Plan: Palpitation/skipped beat, not?associated?with?exertion. Patient?notices?these?every?2- 3?days.??Discomfort?lasts?about?5?minutes?or?less?after?occurence. EKG: ?Normal?sinus?rhythm, normal?intervals, normal?axis, no?hypertrophy, no?ST-T-wave?changes. Will?check?labs?and?Holter?monitor?test. (2) Fibromyalgia: Code(s): M79.7 - Fibromyalgia Plan: pain c/w fibromyalgia. Labwork unrevealing of any other underlying cause. Increase Duloxetine Start PT then continue regular exercise. (3) Joint pain: Code(s): M25.50 - Pain in unspecified joint Plan: As Above (4) Elevated C-reactive protein (CRP): Code(s): R79.82 - Elevated C-reactive protein (CRP) Plan: Nonspecific but her other labs unrevealing and sxs c/w fibromyalgia. (5) Elevated fasting glucose: Code(s): R73.01 - Impaired fasting glucose Plan: proper fasting and BS WNL Orders: Orders Comprehensive Met. Panel Today F32.A - Depression, unspecified, F41.9 - Anxiety disorder, unspecified PT Evaluation and Treatment Today M79.7 - Fibromyalgia Free T4 (Free Thyroxine) Today E03.9 - Hypothyroidism, unspecified AMB EKG-In Office Today R00.2 - Palpitations ECG holter monitor 48 hour Today R00.2 - Palpitations Medications: Changed From duloxetine 30 mg PO BID 30 days 60 caps 2RF To duloxetine 60 mg PO BID 30 days 60 caps 2RF Coding Level of Care Code Est Pt Level 4 (44894) Diagnoses Palpitation R00.2 Fibromyalgia M79.7 Joint pain M25.50 Elevated C-reactive protein (CRP) R79.82 Elevated fasting glucose R73.01
== END 2023-01-23 15:02 | disposition home or self-care (01) ==
PROVIDERS: PCP Family Medicine; Visit Provider Family Medicine
DX: R00.2 Palpitations (principal); M79.7 Fibromyalgia; M25.50 Pain in unspecified joint; R79.82 Elevated C-reactive protein (CRP); R73.01 Impaired fasting glucose
CPT/HCPCS: 99214

== ENCOUNTER → 2023-01-30 09:44 | Outpatient (REF) | payer OTHER, SELFPAY ==
--- NOTE | 2023-01-30 09:47 | HM_ITS ---
* Total monitoring time 2 days. * Underlying rhythm is sinus. Average ventricular rate 78/Min. Range 52- 127/min. * Very rare supraventricular ectopy. * No significant bradycardia or pauses. * No symptoms in patient diary. MTDD
== END ==
LOC: HO.CARD 09:44
PROVIDERS: Visit Provider Family Medicine
DX: R00.2 Palpitations (principal)
CPT/HCPCS: 93225

== ENCOUNTER → 2023-01-30 09:47 | Outpatient (BNV) | payer OTHER, SELFPAY | PROVIDERS: Visit Provider Internal Medicine | DX: I47.10 Supraventricular tachycardia, unspecified (principal) | CPT/HCPCS: 93227 ==

== ENCOUNTER 2023-02-28 10:45 | Outpatient (AMB) | payer OTHER, SELFPAY ==
[2023-02-28 10:50] VITALS: BP 110/62; PULSE 80; O2SAT 97; BMI 28.0
--- NOTE | 2023-02-28 10:50 | MHC.PC.OV ---
Vital Signs 02/28/23 10:50 Height 5 ft 5 in Weight 168 lb 2 oz BMI 28.0 BP 110/62 Blood Pressure Location Lt brachial Position Sitting Pulse 80 Pulse Source Pulse Oximeter Pulse Oximetry (%) 97 Oxygen Delivery Method Room Air Intake Visit Reasons: Palpitations Intake Note: Patient is here with feeling of palpitations. Allergies naproxen [Naproxen] Allergy (Intermediate, Verified 02/28/23 10:53) RASH Tobacco use date assessed: 11/28/22 HPI Palpitations HPI Details 57 y/o female presents to f/u palpitations. Holter monitor 01/30/23 was fine. She states she is no longer having symptoms. [facility] Medical History Cervical radicular pain Fall Right knee pain Sleep disorder, unspecified Excessive daytime sleepiness Pain of right sacroiliac joint Disc degeneration, lumbar Osteoarthritis of lower back Spondylosis of lumbosacral spine with radiculopathy Surgical History H/O cardiac radiofrequency ablation History of tubal ligation Family History Father Liver cancer Mother Hypertension Macular degeneration Son Drug addict Other Substance use disorder Social History Household Members: Spouse Household Members Other:: GRANDDAUGHTER Housing: House Alcohol intake: never Patient Tobacco Use Status: Never used Tobacco e-Cigarette/Vaping Use: Never Used Second Hand Smoke Exposure: No service: No Current occupational status: previously employed 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 Christopher Jackson, Cielo Moya, Phil Boyd and colleagues, with an educational deanne from [employer]. Physical exam (Primary Care) Vital Signs: Last Vital Signs Pulse 80 02/28/23 10:50 BP 110/62 02/28/23 10:50 Pulse Ox 97 02/28/23 10:50 Oxygen Delivery Method Room Air 02/28/23 10:50 BMI result Body Mass Index 28.0 Tobacco/Smoking Status: Tobacco use Status Tobacco use date assessed 11/28/22 02/28/23 10:53 Patient Tobacco Use Status Never used Tobacco 02/28/23 10:53 e-Cigarette/Vaping Use Never Used 02/28/23 10:53 Thrive Assessment: Date of Thrive Assessment Date Thrive assessed 11/25/21 02/28/23 10:53 Assessment and Plan Assessment & Plan (1) Palpitations: Code(s): R00.2 - Palpitations Plan: Patient?was?having?palpitations?and?short/sharp?chest?pains/pressure. EKG?was?normal Holter?monitor?test?was?normal She?has?no?longer?symptomatic. Reassured?patient (2) Fibromyalgia: Code(s): M79.7 - Fibromyalgia Plan: She?begins?physical?therapy?next?week. Encouraged?exercise Coding Level of Care Code Est Pt Level 3 (73673) Diagnoses Palpitations R00.2 Fibromyalgia M79.7
== END 2023-02-28 11:54 | disposition home or self-care (01) ==
PROVIDERS: PCP Family Medicine; Visit Provider Family Medicine
DX: R00.2 Palpitations (principal); M79.7 Fibromyalgia
CPT/HCPCS: 99213

== ENCOUNTER 2023-04-04 10:00 | Outpatient (RCR) | payer OTHER, SELFPAY ==
--- NOTE | 2023-03-02 09:41 | MHC.PT.EP ---
[facility] [place] Office [place] Office [place] Office [address] Margaret Cruz [address] [phone] F: [phone] F: [phone] F: [phone] F: [phone] Physical Therapy Plan of Care Date of Evaluation: 03/02/23 Date of Surgery: N/A Diagnosis: neck and shoulder pain (RL) Assessment: pt is a 57 y/o female presenting to physical therapy w/ referring diagnosis of fibromyalgia; neck and shoulder pain. pt's signs and symptoms seem consistent w/ cervical radiculopathy. Impairments include pain, decreased range of motion, decreased strength, impaired functional mobility, impaired postural awareness, and altered ambulation mechanics. pt is a good candidate for skilled PT due to age, potential remediation of impairments, typical disease/condition progression and prognosis, comorbidities, and motivation. pt would benefit from skilled PT intervention to provide a tailored strengthening and stretching exercise program, functional training, gait training, postural re-training, neuromuscular re-education, modalities as needed for pain, equipment safety demonstration. Frequency and Duration: The patient will be seen 2x/wk for 4 wks Short Term Goals: pt will be I w/ HEP to promote self-management of condition. pt will demo proper sitting posture w/ lumbar roll to promote neutral spine w/ seated ADLs. Process Control Technician Goals: pt will improve B shoulder flexion strength by 1 MMT grade to promote ease in lifting 10# object. pt will report <2/10 neck and shoulder pain w/ upper body ADLs. Treatment Plan: Modalities to reduce pain, spasms and effusion. Manual therapy to restore motion and function. Therapeutic exercise to improve strength and flexibility. Neuromuscular re-education for posture and balance. Therapeutic activities to return to functional activities of daily living. Electronically signed by: Alexsandra Hu PT, DPT Please sign and return to therapist. Thank you for your referral.
--- NOTE | 2023-04-12 10:40 | MHC.PT.DC ---
[facility] [place] Office [place] Office [place] Office [address] Margaret Cruz [address] [facility] [phone] F: [phone] F: [phone] F: [phone] F: [phone] Physical Therapy Discharge Report Diagnosis: neck and shoulder pain (RL) Date of Surgery: N/A Date of Evaluation: 03/02/23 Date of Discharge: 04/12/23 Treatments to Date: 7 Cancellations to Date: 4 No Shows to Date: 0 Discharge Status: Improved Function Independent with HEP Discharge Summary: The patient overall was reporting less neck and upper trapezius pain with soft tissue work and home exercise program. She has poor attendance towards the end of her plan of care but was encouraged to continue with her HEP and to look into massage therapy for muscle pain management. She is discharged from this physical therapy plan of care at this time. Electronically signed by: Alexsandra Hu PT, DPT Please sign and return to therapist. Thank you for your referral.
== END 2023-04-12 10:40 | disposition home or self-care (01) ==
LOC: HO.PT 10:00
PROVIDERS: PCP Family Medicine; Visit Provider Family Medicine
DX: M79.7 Fibromyalgia (principal)
CPT/HCPCS: 97110; 97140; 97161

== ENCOUNTER 2023-07-05 08:28 | Outpatient (REF) | payer OTHER, SELFPAY | END 2023-07-05 08:29 | disposition home or self-care (01) | LOC: HO.MAMMO 08:28 | PROVIDERS: PCP Family Medicine; Visit Provider Family Medicine | DX: Z12.31 Encounter for screening mammogram for malignant neoplasm of breast (principal) | CPT/HCPCS: 77063; 77067 ==

== ENCOUNTER → 2023-07-05 08:45 | Outpatient (BNV) | payer OTHER, SELFPAY | PROVIDERS: PCP Family Medicine; Visit Provider Radiology Diagnostic Radiology | DX: Z12.31 Encounter for screening mammogram for malignant neoplasm of breast (principal) | CPT/HCPCS: 77063; 77067 ==

== ENCOUNTER 2023-07-30 08:37 | Outpatient (AMB) | payer OTHER, SELFPAY ==
--- NOTE | 2023-07-30 08:43 | AM.OFFWIN_ITS ---
Intake Vital Signs 07/30/23 08:48 Height 5 ft 5 in BP 122/56 L Blood Pressure Location Rt brachial Position Sitting Respiration 14 Pulse 84 Pulse Source Pulse Oximeter Temp 96.8 F Temp Source Tympanic Pulse Oximetry (%) 99 Oxygen Delivery Method Room Air Intake Visit Reasons: Fatigue Intake Note: Fatigue. Numbness in Arms and legs. Was in the ER at [place] last Sunday07/22/23 with a stroke. Patient Tobacco Use Status: Never used Tobacco Allergies naproxen [Naproxen] Allergy (Intermediate, Verified 07/30/23 10:21) RASH Medication List - Last Reconciled 07/30/23 by Iliana Donnelly, [employer]-BC cholecalciferol (vitamin D3) 250 mcg PO DAILY duloxetine 60 mg PO BID 30 days gabapentin 600 mg PO BEDTIME dann extract mg PO vit B dzwr-[id number]-mdhc-berberine 100-100 mg tabs PO HPI HPI Comments History of Present Illness Details Here for hospital discharge follow up. She was seen in [place] 07/27/2023 for chief complaints of chest pain. The paperwork from this visit was reviewed. The patient left AMA as she was only they are on vacation and did not have health insurance to cover and admission stay. Labs WNL except elevated CRP and ESR, low MCHC with normal hgb/hct CT of brain and CXR negative She reports today that she has ongoing fatigue, generalized aches and pains, paresthesias affecting bilateral upper and lower extremities. She has no longer having any chest pain. Does feel breathless with minimal exertion. Reports she was in her normal state of health until this incident 07/27/2023. Does note that she was given nitro while in the emergency room and p.r.n. this caused syncope and hypotension. She does think that this worsened her overall symptoms. She reports that she has black-colored stools She denies fever, chills, abdominal pain. I reviewed her medications with her today states she is only taking Cymbalta as needed Stopped taking Gonzalo thinks PCP told her to stop PFSH Medical History Cervical radicular pain Fall Right knee pain Sleep disorder, unspecified Excessive daytime sleepiness Pain of right sacroiliac joint Disc degeneration, lumbar Osteoarthritis of lower back Spondylosis of lumbosacral spine with radiculopathy Surgical History H/O cardiac radiofrequency ablation History of tubal ligation Family History Father Liver cancer Mother Hypertension Macular degeneration Son Drug addict Other Substance use disorder Social History Household Members: Spouse Household Members Other:: GRANDDAUGHTER Housing: House Alcohol intake: never Patient Tobacco Use Status: Never used Tobacco e-Cigarette/Vaping Use: Never Used Second Hand Smoke Exposure: No service: No Current occupational status: previously employed 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 Current occupational exposures/hazards: No Cognitive needs: No Hearing needs: No Vision needs: No (glasses) Review of Systems Const All systems reviewed & are unremarkable except as noted in HPI and below Physical Exam Vital Signs: Last Vital Signs Temp 96.8 F 07/30/23 08:48 Pulse 84 07/30/23 08:48 Resp 14 07/30/23 08:48 BP 122/56 L 07/30/23 08:48 Pulse Ox 99 07/30/23 08:48 Oxygen Delivery Method Room Air 07/30/23 08:48 Const Other: Awake alert oriented no acute distress Sclera is nonicteric bilat Mucous membranes moist Regular rate and rhythm Lung sounds clear to auscultation bilat Assessment & Plan Assessment & Plan (1) Hospital discharge follow-up: Code(s): Z09 - Encounter for follow-up examination after completed treatment for c onditions other than malignant neoplasm Plan: . (2) Fatigue: Code(s): R53.83 - Other fatigue Qualifiers: Fatigue type: chronic, unspecified Qualified Code(s): R53.82 - Chronic fatigue, unspecified Plan: Seen at the walk-in today for hospital discharge follow up. She is a complex patient who reports with chest pain and fatigue. Acute care workup done in [place] reviewed. I have advised for her to get lab done to include stool for H pylori and occult blood given her chief complaints of black-colored stools and follow up with her primary care provider next week. The differentials could include noncompliance with her medication to include Cymbalta and gabapentin. Her records show a longstanding history of elevated inflammatory markers. This could also be related to her fibromyalgia. I did advise the patient if she has any ongoing chest pain or develops any stroke symptoms that she should seek care in the emergency room. However given the extensive workup done in [place] 07/27/2023 I do not think that she needs to seek care at this time. She also presents quite well. This note is constructed using voice recognition software. While every effort has been made to ensure accuracy in commissions analyst, still errors may have been included Sometimes, these errors may affect the content or meaning of the given sentence . Total time spent caring for the patient today was 60 minutes. This includes time spent before the visit reviewing the chart, time spent during the visit, and time spent after the visit on documentation Orders: Orders H pylori Ag Stool Today R53.83 - Other fatigue AMB Stool Occult Bld x3 gFOBT Today R53.83 - Other fatigue, Z12.11 - Encounter for screening for malignant neoplasm of colon, Z12.12 - Encounter for screening for malignant neoplasm of rectum IRON PROFILE Today R53.83 - Other fatigue Ferritin Today R53.83 - Other fatigue Vitamin B12 Today R53.83 - Other fatigue Complete Blood Count no Diff Today R53.83 - Other fatigue Patient Instructions: If you develop chest pain or stroke-like symptoms please see care in the emergency room. He will be called with any critical lab results. Please be sure to follow up with your primary care provider next week. Coding Level of Care Code Est Pt Level 5 (68866) Diagnoses Hospital discharge follow-up Z09 Chronic fatigue R53.82 Fatigue type: chronic, unspecified
[2023-07-30 08:48] VITALS: BP 122/56; PULSE 84; RESP 14; TEMP 36; O2SAT 99
== END 2023-07-30 10:36 | disposition home or self-care (01) ==
PROVIDERS: PCP Family Medicine; Visit Provider Nurse Practitioner Family
DX: R53.82 Chronic fatigue, unspecified (principal); Z09 Encounter for follow-up examination after completed treatment for conditions other than malignant neoplasm
CPT/HCPCS: 99215

== ENCOUNTER 2023-07-30 10:28 | Outpatient (REF) | payer OTHER, SELFPAY ==
[2023-07-30 14:58] LABS: Hematocrit 41.3 % (37.0-47.0); Hemoglobin 12.9 g/dl (12.0-16.0); Mean Corpuscular HGB Conc 31.2 g/dl (31.0-35.0); Mean Corpuscular Hemoglobin 26.3 pg (27.0-33.0); Mean Corpuscular Volume 84.3 fL (80.0-98.0); Mean Platelet Volume 9.8 fL (9.4-12.3); Platelet Count 284 X10*3/uL (160-400); White Blood Count 4.4 X10*3/uL (4.8-10.8)
[2023-07-30 15:17] LABS: Iron 45 mcg/dL (30-160); Percent Iron Saturation 14 % (15-50); Total Iron Binding Capacity 317 mcg/dL (228-428); Unsaturated Iron Binding 272 ug/dL
[2023-07-30 15:34] LABS: Vitamin B12 1884 pg/mL (200-900)
[2023-07-30 15:37] LABS: Ferritin 23 ng/mL (10-250)
== END 2023-07-30 10:29 | disposition home or self-care (01) ==
LOC: HO.WFDLDS 10:28
PROVIDERS: Visit Provider Nurse Practitioner Family
DX: R53.83 Other fatigue (principal)
CPT/HCPCS: 36415; 82607; 82728; 83540; 85027; 87338

== ENCOUNTER 2023-08-10 09:25 | Outpatient (AMB) | payer OTHER, SELFPAY ==
[2023-08-10 09:28] VITALS: BP 120/70; PULSE 82; O2SAT 98; BMI 26.3
--- NOTE | 2023-08-10 09:28 | MHC.PC.OV ---
Vital Signs 08/10/23 09:28 Height 5 ft 5 in Weight 158 lb 4 oz BMI 26.3 BP 120/70 Blood Pressure Location Lt brachial Position Sitting Pulse 82 Pulse Source Pulse Oximeter Pulse Oximetry (%) 98 Oxygen Delivery Method Room Air Intake Visit Reasons: [address] Tirado F/U LABS, LETHARGY Intake Note: Patient is here for follow up on labs, tired, in the afternoon, she has to take a nap, c/o left shoulder pain today. Allergies naproxen [Naproxen] Allergy (Intermediate, Verified 08/10/23 09:32) RASH Tobacco use date assessed: 08/10/23 Dental Screening Dental Screen Date: 08/10/23 Did you have a dental visit in the last 12 months?: Yes Did you have a dental problem in the last 6 months where you did not have access to dental care?: No Was dental information given to patient?: Patient has dentist HPI [address] Tirado F/U LABS, LETHARGY HPI Details Pt presents to f/u fatigue. Had went to a walk in 07/30/23 for a hospital discharge follow-up. Had been advised to get her lab done to include stool for H pyolori and occult blood given complaints of black colored stools. Had been sent amoxicillin, clarithromycin omeprazole for H.pyolri infection. Pt reports she had been worried about her chest pain/fatigue and states she had seen cardiology before for palpitations. Work-up in [place] was negative. HPI Comments History of Present Illness Details Documentation assistance for Merrill Berman MD, was provided by Haile Wells, Wheel Buffer on 08/10/2023 at 10:22 AM HARRISON. I, Dr. Berman, have read, observed, and verified documentation. [facility] Medical History Cervical radicular pain Fall Right knee pain Sleep disorder, unspecified Excessive daytime sleepiness Pain of right sacroiliac joint Disc degeneration, lumbar Osteoarthritis of lower back Spondylosis of lumbosacral spine with radiculopathy Surgical History H/O cardiac radiofrequency ablation History of tubal ligation Family History Father Liver cancer Mother Hypertension Macular degeneration Son Drug addict Other Substance use disorder Social History Household Members: Spouse Household Members Other:: GRANDDAUGHTER Housing: House Alcohol intake: never Patient Tobacco Use Status: Never used Tobacco e-Cigarette/Vaping Use: Never Used Second Hand Smoke Exposure: No service: No Current occupational status: previously employed 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 Christopher Jackson, Cielo Moya, Phil Boyd and colleagues, with an educational deanne from [employer]. Review of Systems Const Reports fatigue, Denies headache(s) and Denies weakness ENT Denies dizziness and Denies headache(s) Card Denies dyspnea Resp Denies cough, Denies dyspnea, Denies wheezing and Denies other (shortness of breath) Musc Denies numbness and Denies tingling Neuro Denies dizziness, Denies headache(s), Denies numbness, Denies tingling and Denies weakness Psych Denies anxiety and Denies depression Endo Reports fatigue Aller/Immun Denies wheezing Physical exam (Primary Care) Vital Signs: Last Vital Signs Pulse 82 08/10/23 09:28 BP 120/70 08/10/23 09:28 Pulse Ox 98 08/10/23 09:28 Oxygen Delivery Method Room Air 08/10/23 09:28 BMI result Body Mass Index 26.3 Tobacco/Smoking Status: Tobacco use Status Tobacco use date assessed 08/10/23 08/10/23 09:39 Patient Tobacco Use Status Never used Tobacco 08/10/23 09:30 e-Cigarette/Vaping Use Never Used 08/10/23 09:30 Thrive Assessment: Date of Thrive Assessment Date Thrive assessed 11/25/21 08/10/23 09:30 Const General: well developed; No acute distress Nutritional Appearance: well nourished Orientation/consciousness: patient oriented x3 HENMT Head: Yes normocephalic and Yes atraumatic Eyes General: appearance normal, both eyes and all related structures Pupils: Equal, round and reactive pupils present EOM: EOMs intact bilaterally Resp Effort & Inspection: normal respiratory effort Auscultation: clear to auscultation bilaterally Cardio Rate: regular rate Rhythm: regular rhythm Heart sounds: S1 normal heart sound present, S2 normal heart sound present, no gallops, no murmurs and no rubs Neuro General: patient oriented x3 and gait normal Cranial nerves: Yes Equal, round and reactive pupils present Psych Affect: normal affect Assessment and Plan Assessment & Plan (1) Chest pain: Code(s): R07.9 - Chest pain, unspecified Plan: Chest?pain?with?arm?pain?and?fatigue Workup?in?[place]?was?negative Recent?EKG?was?negative Will?send?patient?for?stress?test (2) Fatigue: Code(s): R53.83 - Other fatigue Qualifiers: Fatigue type: chronic, unspecified Qualified Code(s): R53.82 - Chronic fatigue, unspecified Plan: As?above (3) H. pylori infection: Comment: 07/2023 start triple therapy will need LINDA done Code(s): A04.8 - Other specified bacterial intestinal infections Plan: Patient?positive?for?H?pylori?and?this?is?likely?cause?of?her?current?symptoms. Advised?her?to?finish?all?medication?which?she?has?only?just?started?yesterday. Orders: Orders CA cardiopulmonary stress test Today R07.9 - Chest pain, unspecified Coding Level of Care Code Est Pt Level 4 (75267) Diagnoses Chest pain R07.9 Chronic fatigue R53.82 Fatigue type: chronic, unspecified H. pylori infection A04.8
== END 2023-08-10 10:30 | disposition home or self-care (01) ==
PROVIDERS: PCP Family Medicine; Visit Provider Family Medicine
DX: R07.9 Chest pain, unspecified (principal); R53.82 Chronic fatigue, unspecified; A04.8 Other specified bacterial intestinal infections
CPT/HCPCS: 99214

== ENCOUNTER 2023-09-07 08:58 | Outpatient (AMB) | payer OTHER, SELFPAY ==
--- NOTE | 2023-09-07 09:06 | A.OFFPC_ITS ---
Vital Signs 09/07/23 09:10 Height 5 ft 5 in Weight 159 lb 8 oz BMI 26.5 BP 120/62 Blood Pressure Location Rt brachial Position Sitting Pulse 69 Pulse Source Pulse Oximeter Pulse Oximetry (%) 95 Oxygen Delivery Method Room Air Intake Visit Reasons: f/u h.pylori infection Intake Note: Patient is here to follow up on H. Pylori today. Allergies naproxen [Naproxen] Allergy (Intermediate, Verified 09/07/23 09:11) RASH Tobacco use date assessed: 09/07/23 Dental Screening Dental Screen Date: 08/10/23 HPI f/u h.pylori infection HPI Details 58 y/o female presents to f/u H pylori i nfection. Had been on amoxicillin and clarithromycin. She reports she has taken her antibiotics to completion. She notes she still experiences some pain and stomach discomfort. She has not been taking omeprazole. [facility] Medical History Cervical radicular pain Fall Right knee pain Sleep disorder, unspecified Excessive daytime sleepiness Pain of right sacroiliac joint Disc degeneration, lumbar Osteoarthritis of lower back Spondylosis of lumbosacral spine with radiculopathy Surgical History H/O cardiac radiofrequency ablation History of tubal ligation Family History Father Liver cancer Mother Hypertension Macular degeneration Son Drug addict Other Substance use disorder Social History Household Members: Spouse Household Members Other:: GRANDDAUGHTER Housing: House Alcohol intake: never Patient Tobacco Use Status: Never used Tobacco e-Cigarette/Vaping Use: Never Used Second Hand Smoke Exposure: No service: No Current occupational status: previously employed 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 Christopher Jackson, Cielo Moya, Phil Boyd and colleagues, with an educational deanne from [employer]. Review of Systems Const Denies chills, Denies fatigue, Denies fever(s), Denies headache(s) and Denies weakness ENT Denies dizziness and Denies headache(s) Card Denies dyspnea Resp Denies cough, Denies dyspnea, Denies wheezing and Denies other (shortness of breath) GI Reports abdominal pain Musc Denies numbness and Denies tingling Neuro Denies dizziness, Denies headache(s), Denies numbness, Denies tingling and Denies weakness Psych Denies anxiety and Denies depression Endo Denies fatigue Aller/Immun Denies wheezing Physical exam (Primary Care) Vital Signs: Last Vital Signs Pulse 69 09/07/23 09:10 BP 120/62 09/07/23 09:10 Pulse Ox 95 09/07/23 09:10 Oxygen Delivery Method Room Air 09/07/23 09:10 BMI result Body Mass Index 26.5 Tobacco/Smoking Status: Tobacco use Status Tobacco use date assessed 09/07/23 09/07/23 09:13 Patient Tobacco Use Status Never used Tobacco 09/07/23 09:07 e-Cigarette/Vaping Use Never Used 09/07/23 09:07 Thrive Assessment: Date of Thrive Assessment Date Thrive assessed 11/25/21 09/07/23 09:07 Const General: well developed; No acute distress Nutritional Appearance: well nourished Orientation/consciousness: patient oriented x3 [facility] Head: Yes normocephalic and Yes atraumatic Eyes General: appearance normal, both eyes and all related structures Pupils: Equal, round and reactive pupils present EOM: EOMs intact bilaterally Resp Effort & Inspection: normal respiratory effort Neuro General: patient oriented x3 and gait normal Cranial nerves: Yes Equal, round and reactive pupils present Psych Affect: normal affect Assessment and Plan Assessment & Plan (1) H. pylori infection: Code(s): A04.8 - Other specified bacterial intestinal infections Plan: Chest?pain?has?resolved?but?patient?still?has?some?epigastric?discomfort. She?has?taken?full?course?of?clarithromycin?and?amoxicillin?but?she?was?never?di spensed?omeprazole. May?still?have?some?gastritis?or?even?ulcers. Will?refer?her?to?Gastroenterology Will?resend?a?script?for?omeprazole.??Reviewed?with?patient?that?she?could?use?P rilosec?OTC?20?mg?b.i.d.?if?she?is ?unable?to?get?the?script.??Patient?says?this?is?agreeable. Lastly,?will?order?repeat?H?pylori?stool?antigen?test?which?she?will provide?a?sample?for, 4?weeks?from?completion?of?antibiotic?which?is?ar ound?August?. Will?follow- up?with?her?by?telemedicine?to?review?test?in?the?1st?full?week?of?September. (2) Abdominal discomfort: Code(s): R10.9 - Unspecified abdominal pain Plan: As?above Orders: Orders H pylori Ag Stool 09/20/23 A04.8 - Other specified bacterial intestinal infections Medications: Refilled 2 omeprazole 20 mg PO BID 20 caps 0RF Coding Level of Care Code Est Pt Level 3 (85276) Diagnoses H. pylori infection A04.8 Abdominal discomfort R10.9
[2023-09-07 09:10] VITALS: BP 120/62; PULSE 69; O2SAT 95; BMI 26.5
== END 2023-09-07 09:46 | disposition home or self-care (01) ==
PROVIDERS: PCP Family Medicine; Visit Provider Family Medicine
DX: A04.8 Other specified bacterial intestinal infections (principal); R10.9 Unspecified abdominal pain
CPT/HCPCS: 99213

== ENCOUNTER → 2023-09-12 08:49 | Outpatient (REF) | payer OTHER, SELFPAY | LOC: HO.CARD 08:49 | PROVIDERS: PCP Family Medicine; Visit Provider Family Medicine | DX: Z13.89 Encounter for screening for other disorder (principal) ==

== ENCOUNTER 2023-09-21 10:41 | Outpatient (REF) | payer OTHER, SELFPAY | END 2023-09-21 10:42 | disposition home or self-care (01) | LOC: HO.LNP 10:41 | PROVIDERS: Visit Provider Family Medicine | DX: A04.8 Other specified bacterial intestinal infections (principal) | CPT/HCPCS: 87338 ==

== ENCOUNTER → 2023-10-04 16:46 | Outpatient (AMB) | payer OTHER, SELFPAY ==
--- NOTE | 2023-10-04 16:44 | A.OFFPC_ITS ---
Intake Visit Reasons: f/u h.pylori infection via telemedicine Intake Note: follow up for h pylori Allergies naproxen [Naproxen] Allergy (Intermediate, Verified 10/04/23 16:44) RASH Tobacco use date assessed: 09/07/23 Dental Screening Dental Screen Date: 08/10/23 HPI f/u h.pylori infection via telemedicine HPI Details Pt presents to f/u recent H pylori infection and epigastric discomfort. Recent H.pylori test 09/21/23 positive. Has been using sodium bicarbonate for acid. She notes chest discomfort/abd discomfort has been improvin but still reports some symptoms when she wakes up in the morning/when eating. [facility] Medical History Cervical radicular pain Fall Right knee pain Sleep disorder, unspecified Excessive daytime sleepiness Pain of right sacroiliac joint Disc degeneration, lumbar Osteoarthritis of lower back Spondylosis of lumbosacral spine with radiculopathy Surgical History H/O cardiac radiofrequency ablation History of tubal ligation Family History Father Liver cancer Mother Hypertension Macular degeneration Son Drug addict Other Substance use disorder Social History Household Members: Spouse Household Members Other:: GRANDDAUGHTER Housing: House Alcohol intake: never Patient Tobacco Use Status: Never used Tobacco e-Cigarette/Vaping Use: Never Used Second Hand Smoke Exposure: No service: No Current occupational status: previously employed 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 Christopher Jackson, Cielo Moya, Phil Boyd and colleagues, with an educational deanne from [employer]. Review of Systems Const Denies chills, Denies fatigue, Denies fever(s), Denies headache(s) and Denies weakness ENT Denies dizziness and Denies headache(s) Card Denies dyspnea Resp Denies cough, Denies dyspnea, Denies wheezing and Denies other (shortness of breath) Musc Denies numbness and Denies tingling Neuro Denies dizziness, Denies headache(s), Denies numbness, Denies tingling and Denies weakness Psych Denies anxiety and Denies depression Endo Denies fatigue Aller/Immun Denies wheezing Physical exam (Primary Care) Tobacco/Smoking Status: Tobacco use Status Tobacco use date assessed 09/07/23 10/04/23 16:47 Patient Tobacco Use Status Never used Tobacco 10/04/23 16:47 e-Cigarette/Vaping Use Never Used 10/04/23 16:47 Thrive Assessment: Date of Thrive Assessment Date Thrive assessed 11/25/21 10/04/23 16:47 Const General: well developed; No acute distress Nutritional Appearance: well nourished Orientation/consciousness: patient oriented x3 Eyes General: appearance normal, both eyes and all related structures Pupils: Equal, round and reactive pupils present EOM: EOMs intact bilaterally Resp Effort & Inspection: normal respiratory effort Neuro General: patient oriented x3 and gait normal Cranial nerves: Yes Equal, round and reactive pupils present Psych Affect: normal affect Telehealth Telehealth Telehealth Platform: Telephone Location of provider rendering services: practice address Location of patient: address on file Patient Identification confirmed using: Name, : Yes Telehealth method: voice only Patient verbally consented to treatment: Yes Patient verbally consented to billing insurance company: Yes Patient informed of any privacy concerns related to visit: Yes Minutes spent on Phone/Video with Pt.: 9 Assessment and Plan Assessment & Plan (1) H. pylori infection: Code(s): A04.8 - Other specified bacterial intestinal infections Plan: Patient?finished?treatment?for?H?pylori?infection?over?a?month?before?repeating? H?pylori?test. H?pylori?test?still?positive?desp ite?treatment?with?clarithromycin?and?amoxicillin She?notes?significant?improvement?but?still?has?symptoms?when?she?wakes?up?in?th e?morning?and?sometimes?with?food Will?have?her?repeat?this?again?and?if?still?not?resolved-will?refer?to?GI (2) Abdominal discomfort: Code(s): R10.9 - Unspecified abdominal pain Plan: As?above (3) Chest pain: Code(s): R07.9 - Chest pain, unspecified Plan: Patient?was?treated?with?clarithromycin?and?amoxicillin?for?H?pylori?infection?a nd?notes?significant?improvement?in?her?GERD?symptoms.??She?denies?any?further?c hest?pain She?will?let?me?know?if?this?returns?but?can?hold?off?on?further?investigation EKG?in?January?was?essentially?normal Coding Level of Care Code Tele Est Pt Level 2 (77864) Diagnoses H. pylori infection A04.8 Abdominal discomfort R10.9 Chest pain R07.9
== END ==
LOC: HO.HMGFM 16:46
PROVIDERS: PCP Family Medicine; Visit Provider Family Medicine
DX: A04.8 Other specified bacterial intestinal infections (principal); R10.9 Unspecified abdominal pain; R07.9 Chest pain, unspecified
CPT/HCPCS: 99212

== ENCOUNTER 2023-10-10 09:43 | Outpatient (REF) | payer OTHER, SELFPAY | END 2023-10-10 09:44 | disposition home or self-care (01) | LOC: HO.LNP 09:43 | PROVIDERS: Visit Provider Family Medicine | DX: A04.8 Other specified bacterial intestinal infections (principal) | CPT/HCPCS: 87338 ==

== ENCOUNTER 2023-11-27 11:06 | Outpatient (AMB) | payer OTHER, SELFPAY ==
--- NOTE | 2023-11-27 11:08 | MHC.OFFVIS ---
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 She is doing well with no concerns. Attempting to eat a healthy diet with calcium and vitamin D and stays active with exercise. Currently occasionally sexually active. Denies any irritation. Admits to dryness, uses a lubricant. STI testing offered; she accepts. Last pap smear; 2020, negative. Last mammogram; 2023. Colonoscopy is UTD. Denies any family history of breast, ovarian or colon cancer. [facility] Medical History Cervical radicular pain Fall Right knee pain Sleep disorder, unspecified Excessive daytime sleepiness Pain of right sacroiliac joint Disc degeneration, lumbar Osteoarthritis of lower back Spondylosis of lumbosacral spine with radiculopathy Surgical History H/O cardiac radiofrequency ablation History of tubal ligation Family History Father Liver cancer Mother Hypertension Macular degeneration Son Drug addict Other Substance use disorder Social History Household Members: Spouse Household Members Other:: GRANDDAUGHTER Housing: House Alcohol intake: never Patient Tobacco Use Status: Never used Tobacco e-Cigarette/Vaping Use: Never Used Second Hand Smoke Exposure: No service: No Current occupational status: previously employed 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 Current occupational exposures/hazards: No Cognitive needs: No Hearing needs: No Vision needs: No (glasses) Female Reproductive History Menstrual control method: permanent sterilization Permanent Sterilization: BTL Total pregnancies: 3 Full term: 3 Number of Living Children: 3 Date of last pap smear: 09/13/20 (neg pap and hpv) Date of Mammogram: 07/05/23 (Birad 1) Review of Systems Const All systems reviewed & are unremarkable except as noted in HPI and below Reports as per HPI Eyes Reports no additional complaints ENT Reports no additional complaints Card Reports no additional complaints Resp Reports no additional complaints GI Reports as per HPI and Reports no additional complaints Reports as per HPI Musc Reports no additional complaints Skin/Breast Reports as per HPI Neuro Reports no additional complaints Psych Reports no additional complaints Endo Reports no additional complaints Tejas/Lymph Reports no additional complaints Aller/Immun Reports no additional complaints Physical Exam Vital Signs: Last Vital Signs BP 100/60 11/27/23 11:18 BMI result Body Mass Index 27.5 Const General: cooperative, healthy appearing, no acute distress, well developed and alert Orientation/consciousness: patient oriented x3 HEENT Head: Yes normal to inspection Eyes General: appearance normal, both eyes and all related structures Neck Neck: Yes normal visual inspection Thyroid: Thyroid normal Chest Chest palpation & inspection: normal inspection of the chest and other (no puckering, dimpling, peau de orange, retraction, discharge, masses) Breast/axilla inspection: normal inspection of the breasts Breast/axilla palpation: normal palpation of the breasts Resp Effort & Inspection: normal respiratory effort GI Inspection: Yes normal to inspection Palpation (GI): Soft to palpation Rectal Exam - Female: deferred General: Yes bladder normal to palpation External Female Exam: normal external appearance and normal appearance of the urethra Speculum Exam - Vagina: normal appearance of the vagina, normal palpation, normal vaginal discharge and vagina atrophic Speculum Exam - Cervix: normal appearance of the cervix and normal palpation Bimanual exam- vagina & uterus: normal bimanual exam, normal palpation, uterine size normal, bladder normal to palpation, normal palpation and non-tender Bimanual Exam- Adnexa, other: no masses Skin General skin exam: no rashes or lesions noted Rashes: no rashes Neuro General: patient oriented x3 Cognition (Neuro): normal cognition Extrem General: Yes normal to inspection Psych Attitude: cooperative Thought process: Normal thought process present Assessment & Plan Assessment & Plan (1) Encounter for well woman exam with routine gynecological exam: Code(s): Z01.419 - Encounter for gynecological examination (general) (routine) without abnormal findings Category: Medical Plan Discussed: Current recommendations for pap smears per ASCCP guidelines. Breast awareness, periodic self breast exams and yearly mammogram. Maintain a healthy lifestyle, well balanced diet including Calcium 1,200 mg and Vitamin D 600 IU daily, and routine exercise. Replens moisturizer, and additional lubricant if needed, follow up p.r.n.. Contact the office with any postmenopausal bleeding. Patient verbalizes understanding and agrees to the plan of care. She was given opportunity to ask questions and all questions were answered to the best of my ability. 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 This note is constructed using voice recognition software. While every effort has been made to ensure accuracy, parachute accessories attacher errors may have been included. Coding Level of Care Code Est Pt Prev Care 40-64y(31167) Diagnoses Encounter for well woman exam with routine gynecological exam Z01.419
[2023-11-27 11:18] VITALS: BP 100/60; BMI 27.5
== END 2023-11-27 11:49 | disposition home or self-care (01) ==
PROVIDERS: PCP Hospitalist; Visit Provider Advanced Practice Midwife
DX: Z01.419 Encounter for gynecological examination (general) (routine) without abnormal findings (principal)
CPT/HCPCS: 99396

== ENCOUNTER → 2023-11-27 11:06 | Outpatient (BNVA) | payer OTHER, SELFPAY | PROVIDERS: PCP Hospitalist; Visit Provider Advanced Practice Midwife | DX: Z01.419 Encounter for gynecological examination (general) (routine) without abnormal findings (principal); Z98.51 Tubal ligation status | CPT/HCPCS: 99396 ==

== ENCOUNTER 2024-02-12 08:13 | Outpatient (AMB) | payer OTHER, SELFPAY ==
--- NOTE | 2024-02-12 08:22 | MHC.OFFVIS ---
Vital Signs 02/12/24 08:29 Height 5 ft 5 in Weight 160 lb BMI 26.6 BP 117/58 L Blood Pressure Location Lt brachial Position Sitting Pulse 88 Intake Visit Reasons: Gastritis Intake Note: Patient new consult for Gastritis. Patient cc: acid reflex with burning sensation and chest pain, abdominal bloating on and off and some nauseas with out vomit. Director Of Cardiopulmonary Services Required: No Accompanied by: Self / Same As Patient Allergies naproxen [Naproxen] Allergy (Intermediate, Verified 02/12/24 08:20) RASH HPI HPI Gastritis: Details: 58-year-old female with a past medical history of epigastric pain, H pylori, iron deficiency anemia, fibromyalgia, is here today for initial consultation. Patient was in [place] in June and developed epigastric pain. Patient was seen at the clinic with she tested positive for H pylori. Patient was treated and then. When she returned her PCP checked stool for H pylori, tested positive. Patient was treated again with antibiotics. Last H pylori treatment was in September of 2023. Patient had colonoscopy in March of [address] Blue. Tubular adenoma found and recommendation was to repeat colonoscopy in 10 years. Patient reports episode of black stool back in September. Currently patient is moving her bowels normal. Denies melena, hematochezia. Currently patient reports acid reflux occasionally depending on what she eats. Not on any PPI. Will test for H pylori in the office today. Patient denies any issues with anesthesia in the past. No history of sleep apnea. Not on any anticoagulation medication. Currently patient is famotidine. Patient reports that she was unable to get PPI as insurance would not cover it [facility] Medical History Cervical radicular pain Fall Right knee pain Sleep disorder, unspecified Excessive daytime sleepiness Pain of right sacroiliac joint Disc degeneration, lumbar Osteoarthritis of lower back Spondylosis of lumbosacral spine with radiculopathy Surgical History H/O cardiac radiofrequency ablation History of tubal ligation Family History Father Liver cancer Mother Hypertension Macular degeneration Son Drug addict Other Substance use disorder Social History Household Members: Spouse Household Members Other:: GRANDDAUGHTER Housing: House Alcohol intake: never Patient Tobacco Use Status: Never used Tobacco e-Cigarette/Vaping Use: Never Used Second Hand Smoke Exposure: No service: No Current occupational status: previously employed 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 Current occupational exposures/hazards: No Cognitive needs: No Hearing needs: No Vision needs: No (glasses) Review of Systems Const Denies weight gain and Denies weight loss ENT Reports no additional complaints, Denies dysphagia and Denies odynophagia Card Reports no additional complaints Resp Reports no additional complaints GI Reports abdominal pain (Epigastric), Denies belching, Denies melena, Denies bloating, Denies change in bowel habits, Denies dysphagia, Denies excessive flatus, Denies dyspepsia, Reports heartburn, Denies diarrhea, Denies loose stools, Denies nausea, Denies odynophagia and Denies vomiting Reports no additional complaints Musc Reports no additional complaints Neuro Reports no additional complaints Psych Reports no additional complaints Endo Reports no additional complaints Physical Exam Vital Signs: Last Vital Signs Pulse 88 02/12/24 08:29 BP 117/58 L 02/12/24 08:29 BMI result Body Mass Index 26.6 Const General: healthy appearing, no acute distress and well developed Nutritional Appearance: well nourished Orientation/consciousness: patient oriented x3 Resp Effort & Inspection: normal respiratory effort, able to speak in complete sentences, no tracheal deviation and symmetric chest movement Auscultation: clear to auscultation bilaterally Cardio Rate: regular rate GI Inspection: Yes normal to inspection and No distended Palpation (GI): Soft to palpation, not firm, nontender and No hepatosplenomegaly present Auscultation: normal bowel sounds General: Yes no CVA tenderness Back/Spine/Pelvis Back: no CVA tenderness Skin General skin exam: elasticity normal, turgor normal and dry skin Neuro General: patient oriented x3 Psych Appearance: grossly normal Mental Status: mental status grossly normal Assessment & Plan Assessment & Plan (1) Abdominal discomfort: Code(s): R10.9 - Unspecified abdominal pain Category: Medical (2) H. pylori infection: Code(s): A04.8 - Other specified bacterial intestinal infections Category: Medical (3) Postprandial epigastric pain: Code(s): R10.13 - Epigastric pain (4) Screening for colon cancer: Code(s): Z12.11 - Encounter for screening for malignant neoplasm of colon Category: Medical Plan Will test for H pylori today and will treat empirically if positive. Patient was treated with antibiotics in the past. Patient will be sent for upper endoscopy. She is due to go for colonoscopy as well. Patient was encouraged to avoid dietary triggers and late night snacking. Staying upright for minimum 3 hours after meals discussed with patient. Patient will return in 2 months to go over the prep. Patient is agreeable to current plan of care and verbalizes understanding of instructions. She was given the option to ask questions and all questions answered. Thank you for allowing me to participate in her care Orders: Orders H Pylori Breath Test Today K21.9 - Gastro-esophageal reflux disease without esophagitis TSH reflex Free T4 Today K59.00 - Constipation, unspecified Vitamin B12 and Folate Today R19.7 - Diarrhea, unspecified Vitamin D 25-OH (D2 and D3) Today E55.9 - Vitamin D deficiency, unspecified Transglutaminase IgA Today R10.9 - Unspecified abdominal pain Medications: New omeprazole 20 mg PO DAILY 30 caps 3RF K21.9 - Gastro-esophageal reflux disease without esophagitis Coding Level of Care Code New Pt Level 4 (08660) Diagnoses Abdominal discomfort R10.9 H. pylori infection A04.8 Postprandial epigastric pain R10.13 Screening for colon cancer Z12.11 Time Spent (min) 45 Comment 30 minutes spent with patient and additional 15 minutes spent reviewing her records
[2024-02-12 08:29] VITALS: BP 117/58; PULSE 88; BMI 26.6
== END 2024-02-13 08:26 | disposition home or self-care (01) ==
PROVIDERS: PCP Family Medicine; Visit Provider Nurse Practitioner Family
DX: K29.70 Gastritis, unspecified, without bleeding (principal); A04.8 Other specified bacterial intestinal infections
CPT/HCPCS: 99204

== ENCOUNTER 2024-02-12 08:13 | Outpatient (REF) | payer OTHER, SELFPAY ==
[2024-02-12 10:55] LABS: TSH reflex Free T4 1.73 uIU/mL (0.32-4.0)
[2024-02-12 11:12] LABS: Folate 13.1 ng/mL (> or = 4.0); Vitamin B12 986 pg/mL (200-900)
[2024-02-12 15:20] LABS: H Pylori Breath Test Negative (Negative)
[2024-02-13 22:13] LABS: Transglutaminase IgA <1.0 U/mL
[2024-02-16 18:13] LABS: Vitamin D 25-OH, D2 <4 ng/mL; Vitamin D 25-OH, D3 80 ng/mL; Vitamin D 25-OH, Total 80 ng/mL (30-100)
== END 2024-02-12 08:14 | disposition home or self-care (01) ==
LOC: HO.LAB 08:13
PROVIDERS: PCP Family Medicine; Visit Provider Nurse Practitioner Family
DX: M79.7 Fibromyalgia (principal); M79.643 Pain in unspecified hand; A04.8 Other specified bacterial intestinal infections; M25.511 Pain in right shoulder; Z79.899 Other long term (current) drug therapy; R10.13 Epigastric pain; K21.9 Gastro-esophageal reflux disease without esophagitis; K59.00 Constipation, unspecified; R19.7 Diarrhea, unspecified; E55.9 Vitamin D deficiency, unspecified
CPT/HCPCS: 36415; 82306; 82607; 82746; 83013; 84443; 86364; 96127; 99202; 99212

== ENCOUNTER 2024-02-12 10:34 | Outpatient (AMB) | payer OTHER, SELFPAY ==
--- NOTE | 2024-02-12 10:41 | A.OFFPC_ITS ---
Vital Signs 02/12/24 10:42 Height 5 ft 5 in Weight 165 lb 2 oz BMI 27.5 BP 110/60 Blood Pressure Location Rt brachial Position Sitting Respiration 16 Pulse 91 Pulse Source Pulse Oximeter Temp 98.3 F Temp Source Oral Pulse Oximetry (%) 97 Oxygen Delivery Method Room Air Intake Visit Reasons: Fibromyalgia Intake Note: f/u for fibromyalgia Allergies naproxen [Naproxen] Allergy (Intermediate, Verified 02/12/24 10:41) RASH Tobacco use date assessed: 09/07/23 Dental Screening Dental Screen Date: 08/10/23 HPI Fibromyalgia HPI Details 58 y/[facility]. Followed by GI for abd. discomfort, gastritis. She is on duloxetine 60mg b.i.d. She reports ongoing shoulder pain, hand pain. HPI Comments History of Present Illness Details Documentation assistance for Merrill Berman MD, was provided by Haile Wells,? Book Reviewer on 02/12/2024 at 11:36 AM EST. I, Dr. Berman, have read, observed, and verified documentation. [facility] Medical History Cervical radicular pain Fall Right knee pain Sleep disorder, unspecified Excessive daytime sleepiness Pain of right sacroiliac joint Disc degeneration, lumbar Osteoarthritis of lower back Spondylosis of lumbosacral spine with radiculopathy Surgical History H/O cardiac radiofrequency ablation History of tubal ligation Family History Father Liver cancer Mother Hypertension Macular degeneration Son Drug addict Other Substance use disorder Social History Household Members: Spouse Household Members Other:: GRANDDAUGHTER Housing: House Alcohol intake: never Patient Tobacco Use Status: Never used Tobacco e-Cigarette/Vaping Use: Never Used Second Hand Smoke Exposure: No service: No Current occupational status: previously employed 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 1. Little interest or pleasure in doing things: not at all 2. Feeling down, depressed, or hopeless: several days 3. Trouble falling or staying asleep, or sleeping too much: more than half the days 4. Feeling tired or having little energy: several days 5. Poor appetite or overeating: several days 6. Feeling bad about yourself - or that you are a failure or have let yourself or your family down: not at all 7. Trouble concentrating on things, such as reading the newspaper or watching television: not at all 8. Moving or speaking so slowly that other people could have noticed. Or the opposite - being so fidgety or restless that you have been moving around a lot more than usual: not at all 9. Thoughts that you would be better off or of hurting yourself in some way: not at all Total score: 5 Source: Developed by Drs. Christopher Jackson, Cielo Moya, Pihl Boyd and colleagues, with an educational deanne from [employer]. Thrive Questionnaire Date Thrive assessed: 02/09/24 I am a: Patient What is your living situation today?: I have a steady place to live Within the past 12 months, did the food you bought not last and you didn't have the money to get more?: Never true Within the past 12 months, did you worry whether your food would run out before you got money to buy more?: Never true Do you have trouble paying for medicines?: No Do you have trouble getting transportation to medical appointments?: No Do you have trouble paying your heating and electricity bill?: No Do you have trouble taking care of your child, family member or friend?: No Do you have trouble with day-to-day activities such as bathing, preparing meals, shopping, managing finances, etc.?: No Are you currently unemployed and looking for a job?: I choose not to answer this question Are you interested in more education?: No Please select the resources that you would like help with: None Currently or been in a relationship where the following occur: No concerns reported THRIVE Score: 0 AUDIT C Alcohol Use Questionnaire (AUDIT-C) 1. How often do you have a drink containing alcohol?: Never 3. How often do you have six or more drinks on one occasion?: Never Total Score: 0 TREV-7 AMB Questionnaire TREV-7 Date TREV - 7 assessed: 05/10/22 Feeling nervous, anxious, or on edge: 1 = Several days Not being able to stop or control worryin = Several days Worrying too much about different things: 1 = Several days Trouble relaxin = Several days Being so restless that it is hard to sit still: 0 = Not at all Becoming easily annoyed or irritable: 0 = Not at all Feeling afraid as if something awful might happen: 0 = Not at all Total TREV-7 score (0-4 normal; 5-9 mild; 10-14 moderate; 15-21 severe): 4 Source: Developed by Drs. Christopher Jackson, Cielo Moya, Phil Boyd and colleagues, with an educational deanne from [employer]. Review of Systems GI Reports abdominal pain Physical exam (Primary Care) Vital Signs: Last Vital Signs Temp 98.3 F 02/12/24 10:42 Pulse 91 02/12/24 10:42 Resp 16 02/12/24 10:42 BP 110/60 02/12/24 10:42 Pulse Ox 97 02/12/24 10:42 Oxygen Delivery Method Room Air 02/12/24 10:42 BMI result Body Mass Index 27.5 Tobacco/Smoking Status: Tobacco use Status Tobacco use date assessed 09/07/23 02/12/24 10:45 Patient Tobacco Use Status Never used Tobacco 02/12/24 10:45 e-Cigarette/Vaping Use Never Used 02/12/24 10:45 PHQ-9: PHQ-9 Score PHQ-9: Total score 5 02/12/24 11:27 Thrive Assessment: Date of Thrive Assessment Date Thrive assessed 02/09/24 02/12/24 10:45 Currently or been in a relationship where the following occur: No concerns reported Coding Level of Care Code Est Pt Level 4 (18991) Diagnoses Fibromyalgia M79.7 Hand pain M79.643 H. pylori infection A04.8 Right shoulder pain M25.511 Assessment & Plan Assessment & Plan (1) Fibromyalgia: Code(s): M79.7 - Fibromyalgia Category: Medical Plan: Duloxetine?has?been?helping?though?the?dose?was?decreased?to?2?headaches Continue?duloxetine She?has?also?having?ongoing?shoulder?pain?and?severe?bilateral?hand?pain Will?give?her?Voltaren?gel Continue?duloxetine Will?also?give?her?Celebrex?for?severe?pain after?treatment?for?H?pylori?g astritis. (2) Hand pain: Code(s): M79.643 - Pain in unspecified hand Category: Medical Plan: Bilateral?hand?pain?with?nodules?at?PIP?and?DIP?joints MCP?joints?spared Likely?osteoarthritis Will?check?inflammatory?markers?rheumatoid?factor?as?patien t?is?concerned?about?a?rheumatologic?cause. Can?use?medications?as?described?above (3) H. pylori infection: Code(s): A04.8 - Other specified bacterial intestinal infections Category: Medical Plan: Follow-up?with?Gastroenterology (4) Right shoulder pain: Code(s): M25.511 - Pain in right shoulder Category: Medical Plan: Start?physical?therapy Continue?duloxetine Orders: Orders CRP High Sensitivity Today M79.643 - Pain in unspecified hand UA and rflx microscopic Today Z00.00 - Encounter for general adult medical examination without abnormal findings Complete Blood Count Auto Diff Today Z00.00 - Encounter for general adult medical examination without abnormal findings PT Evaluation and Treatment Today M25.511 - Pain in right shoulder Comprehensive [place]. Panel Fast Today M79.643 - Pain in unspecified hand, Z00.00 - Encounter for general adult medical examination without abnormal findings Erythrocyte Sedimentation Rate Today M79.643 - Pain in unspecified hand Rheumatoid Factor Today M79.643 - Pain in unspecified hand Lipid Panel Today Z00.00 - Encounter for general adult medical examination without abnormal findings Microalbumin, Random (w Creat) Today I10 - Essential (primary) hypertension Medications: New celecoxib Pt has tolerated other NSAIDs such as Ibuprofen 200 mg (2 x 100 mg) PO BID 30 days PRN 60 caps 0RF pain diclofenac sodium 1% apply to single elbow, wrist or hand; for hand includes palm/fingers/back of hand 2 grams topical BID 30 days 100 grams 2RF Changed From duloxetine 60 mg PO BID 30 days 60 caps 2RF To duloxetine 30 mg PO DAILY 30 days 30 caps 2RF
[2024-02-12 10:42] VITALS: BP 110/60; PULSE 91; RESP 16; TEMP 36.8; O2SAT 97; BMI 27.5
== END 2024-02-12 11:37 | disposition home or self-care (01) ==
PROVIDERS: PCP Hospitalist; Visit Provider Family Medicine
DX: M79.7 Fibromyalgia (principal); M79.643 Pain in unspecified hand; A04.8 Other specified bacterial intestinal infections; M25.511 Pain in right shoulder

== ENCOUNTER 2024-02-14 08:32 | Outpatient (REF) | payer OTHER, SELFPAY ==
[2024-02-14 08:51] LABS: MANUAL DIFF FLAG NO
[2024-02-14 09:51] LABS: Basophils Percent Auto 0.6 % (0-2); Eosinophils Absolute Auto 0.1 X10*3/uL (0.0-0.4); Eosinophils Percent Auto 2.4 % (0-4); Hematocrit 41.3 % (37.0-47.0); Hemoglobin 13.1 g/dl (12.0-16.0); Imm Gran Abs Auto 0.02 X10*3/uL (0.00-0.03); Imm Gran Pct Auto 0.4 % (0.0-0.4); Lymphocytes Percent Auto 41.2 % (20-40); Mean Corpuscular HGB Conc 31.7 g/dl (31.0-35.0); Mean Corpuscular Hemoglobin 26.1 pg (27.0-33.0); Mean Corpuscular Volume 82.4 fL (80.0-98.0); Mean Platelet Volume 9.4 fL (9.4-12.3); Monocytes Absolute Auto 0.3 X10*3/uL (0.1-1.2); Monocytes Percent Auto 6.9 % (2-11); Neutrophils Absolute Auto 2.4 x10*3/uL (2.0-8.3); Neutrophils Percent Auto 48.5 % (45-73); Platelet Count 286 X10*3/uL (160-400); Red Blood Count 5.01 X10*6/uL (4.20-5.50); Red Cell Distribution Width 14.7 % (11.0-16.0)
[2024-02-14 10:11] LABS: Appearance Urine Cloudy; Color Urine Yellow; Glucose Urine UA Negative (Negative); Leukocyte Esterase Urine Small (1+) (Negative); Nitrite Urine Negative (Negative); Specific Gravity - Urine 1.025 (1.005-1.025); UMIC TRIGGER UA YES; Urine Blood Negative (Negative); Urine Ketones Negative (Negative); Urine Protein Negative (Neg-Trace)
[2024-02-14 10:25] LABS: Bacteria Urine None Seen (None Seen); Hyaline Casts Urine 0-2 /LPF (0-2); RBC Urine 0-2 /HPF (0-2); WBC Urine 0-5 /HPF (0-5)
[2024-02-14 10:34] LABS: Rheumatoid Factor < 13.0 IU/mL (<15.0)
[2024-02-14 10:38] LABS: Creatinine Urine 154.35 mg/dL; Microalbum/Creatinine Ratio Ur 11.6 ug/mg cr (<30)
[2024-02-14 10:40] LABS: Erythrocyte Sedimentation Rate 16 MM/HR (0-20)
[2024-02-14 10:52] LABS: Alanine Aminotransferase 20 U/L (0-31); Albumin Level 4.4 g/dL (3.5-5.0); Alkaline Phosphatase 83 U/L (39-117); Anion Gap 12 (12-20); Aspartate Amino Transferase 27 U/L (5-31); Bilirubin Total 0.7 mg/dL (0.0-1.0); Blood Urea Nitrogen 18 mg/dL (9-16); Calcium 9.3 mg/dL (8.4-10.2); Carbon Dioxide 26 mmol/L (22-29); Chloride 109 mmol/L (96-108); Cholesterol 181 mg/dL (<200); Estimated Glomerular Filt Rate > 60; Glucose Fasting 91 mg/dL (60-99); HDL Cholesterol 48 mg/dL (>40); LDL Cholesterol Calculated 119 mg/dL (<100); Potassium 4.1 mmol/L (3.3-5.1); Sodium 143 mmol/L (135-145); Total Protein 7.7 g/dL (6.5-8.0); Triglycerides 74 mg/dL (<150)
[2024-02-16 13:03] LABS: CRP High Sensitivity 12.5 mg/L
== END 2024-02-14 08:33 | disposition home or self-care (01) ==
LOC: HO.LAB 08:32
PROVIDERS: PCP Family Medicine; Visit Provider Family Medicine
DX: Z00.00 Encounter for general adult medical examination without abnormal findings (principal); M79.643 Pain in unspecified hand; I10 Essential (primary) hypertension
CPT/HCPCS: 36415; 80053; 80061; 81001; 82043; 82570; 85025; 85652; 86141; 86431

== ENCOUNTER 2024-04-08 08:51 | Outpatient (AMB) | payer OTHER, SELFPAY ==
--- NOTE | 2024-04-08 08:57 | MHC.PC.OV ---
Vital Signs 04/08/24 08:58 Height 5 ft 5 in Weight 166 lb 2 oz BMI 27.6 BP 110/60 Blood Pressure Location Lt brachial Position Sitting Respiration 14 Pulse 72 Pulse Source Pulse Oximeter Temp 98.2 F Temp Source Oral Pulse Oximetry (%) 98 Oxygen Delivery Method Room Air Intake Visit Reasons: f/u chronic conditions Intake Note: f/u for fibromyalgia and labs Allergies naproxen [Naproxen] Allergy (Intermediate, Verified 04/08/24 08:58) RASH Tobacco use date assessed: 09/07/23 Dental Screening Dental Screen Date: 08/10/23 HPI f/u chronic conditions HPI Details 58 y/o female presents to f/u chronic conditions such as fibromyalgia, hand pain. Labs giovani 02/14/24. Reviewed labs with pt. Elevated CRP at 12.5. Triglycerides 74. TC 181. LDL 119. HDL 48. She reports ongoing intermittent hand pain that improves some days and worsens on others. HPI Comments History of Present Illness Details Documentation assistance for Merrill Berman MD, was provided by Haile Wells, Manager Data Warehouse on 04/08/2024 at 9:13 AM EST. I, Dr. Berman, have read, observed, and verified documentation. [facility] Medical History Cervical radicular pain Fall Right knee pain Sleep disorder, unspecified Excessive daytime sleepiness Pain of right sacroiliac joint Disc degeneration, lumbar Osteoarthritis of lower back Spondylosis of lumbosacral spine with radiculopathy Surgical History H/O cardiac radiofrequency ablation History of tubal ligation Family History Father Liver cancer Mother Hypertension Macular degeneration Son Drug addict Other Substance use disorder Social History Household Members: Spouse Household Members Other:: GRANDDAUGHTER Housing: House Alcohol intake: never Patient Tobacco Use Status: Never used Tobacco e-Cigarette/Vaping Use: Never Used Second Hand Smoke Exposure: No service: No Current occupational status: previously employed 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 Christopher Jackson, Cielo Moya, Phil Boyd and colleagues, with an educational deanne from [employer]. Review of Systems Const Denies chills, Denies fatigue, Denies fever(s), Denies headache(s) and Denies weakness ENT Denies dizziness and Denies headache(s) Card Denies dyspnea Resp Denies cough, Denies dyspnea, Denies wheezing and Denies other (shortness of breath) Musc Denies numbness and Denies tingling Neuro Denies dizziness, Denies headache(s), Denies numbness, Denies tingling and Denies weakness Psych Denies anxiety and Denies depression Endo Denies fatigue Aller/Immun Denies wheezing Physical exam (Primary Care) Vital Signs: Last Vital Signs Temp 98.2 F 04/08/24 08:58 Pulse 72 04/08/24 08:58 Resp 14 04/08/24 08:58 BP 110/60 04/08/24 08:58 Pulse Ox 98 04/08/24 08:58 Oxygen Delivery Method Room Air 04/08/24 08:58 BMI result Body Mass Index 27.6 Tobacco/Smoking Status: Tobacco use Status Tobacco use date assessed 09/07/23 04/08/24 09:02 Patient Tobacco Use Status Never used Tobacco 04/08/24 09:02 e-Cigarette/Vaping Use Never Used 04/08/24 09:02 Thrive Assessment: Date of Thrive Assessment Date Thrive assessed 02/09/24 04/08/24 09:02 Const General: well developed; No acute distress Nutritional Appearance: well nourished Orientation/consciousness: patient oriented x3 HENMT Head: Yes normocephalic and Yes atraumatic Eyes General: appearance normal, both eyes and all related structures Pupils: Equal, round and reactive pupils present EOM: EOMs intact bilaterally Resp Effort & Inspection: normal respiratory effort Neuro General: patient oriented x3 and gait normal Cranial nerves: Yes Equal, round and reactive pupils present Psych Affect: normal affect Coding Level of Care Code Est Pt Level 3 (33113) Diagnoses Hand pain M79.643 Fibromyalgia M79.7 Assessment & Plan Assessment & Plan (1) Hand pain: Code(s): M79.643 - Pain in unspecified hand Category: Medical Plan: Bilateral?hand?pain,?likely?osteoarthritis Status?celecoxib Can?continue?topical?diclofenac,?ice/heat Check?x-rays Could?consider?occupational?therapy?as?well (2) Fibromyalgia: Code(s): M79.7 - Fibromyalgia Category: Medical Plan: Patient?notes?that?duloxetine?30?mg?daily?is?helping. Will?increase?this?to?30?mg?b.i.d. Had?ordered?physical?therapy?and?she?has?not?gotten?a?chance?started?due?to?rescheduling?from?weather?issues. Will?follow-up?at?next?visit?to?see?if?duloxetine?increase?is?helping?and?if?physical?therapy?is?beneficial Orders: Orders XR hand RT 2V Today M79.643 - Pain in unspecified hand XR hand LT 2V Today M79.643 - Pain in unspecified hand
[2024-04-08 08:58] VITALS: BP 110/60; PULSE 72; RESP 14; TEMP 36.8; O2SAT 98; BMI 27.6
== END 2024-04-08 09:22 | disposition home or self-care (01) ==
LOC: HO.HMCFM 08:51
PROVIDERS: PCP Family Medicine; Visit Provider Family Medicine
DX: M79.643 Pain in unspecified hand (principal); M79.7 Fibromyalgia

== ENCOUNTER → 2024-04-08 08:51 | Outpatient (BNVA) | payer OTHER, SELFPAY | PROVIDERS: PCP Family Medicine; Visit Provider Family Medicine | DX: M79.643 Pain in unspecified hand (principal); M79.7 Fibromyalgia | CPT/HCPCS: 99212 ==

== ENCOUNTER 2024-04-09 08:15 | Outpatient (REF) | payer OTHER, SELFPAY ==
--- NOTE | ~2024-04-09 | XR_ITS ---
EXAMINATION: XR HAND, RIGHT CLINICAL INFORMATION: M79.643 - Pain in unspecified hand COMPARISON: None available. TECHNIQUE: PA, lateral, and oblique views of the right hand. FINDINGS: Joint space narrowing with sclerosis and the articular surface of the distal interphalangeal joints of the digits more conspicuous in the second and fourth and fifth digits. No acute cortical disruption or malalignment. No lytic or blastic lesions. No subcutaneous emphysema. No metallic or radiopaque foreign body. 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 Electronically signed by: Juan Camarena MD 04/09/2024 08:41 AM EST
--- NOTE | ~2024-04-09 | XR_ITS ---
EXAMINATION: XR HAND, LEFT CLINICAL INFORMATION: M79.643 - Pain in unspecified hand COMPARISON: None available. TECHNIQUE: PA, lateral, and oblique views of the left hand. FINDINGS: There is mild bony demineralization. No periarticular osteopenia. No periarticular erosion. Arthritis involving the DIP joints of the digits, most pronounced in the second and fifth DIP joints. There are productive bony changes present, with possible central erosion, raising the possibility of primary erosive osteoarthritis. The MCPs, and wrist articulations are normal. Negative ulnar variance. No soft tissue abnormalities. XR/XR hand LT min 3V IMPRESSION: 1. No acute bony abnormalities. 2. 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 Electronically signed by: John Whitney MD 04/09/2024 08:49 AM [facility]ARRISON
--- OUTSIDE RECORDS SUMMARY | 2024-04-09 08:48 | XMS_ITS | Data Portability ---
Author Organization [facility] [id number] Address [address] [place] [address] Assessment No assessment recorded. Plan of Treatment Reminders Order Date Submit Date Provider Last Modified By Organization Details Last Modified Time Details Appointments None record ed. Lab None record ed. Referral None record ed. Procedures None record ed. Surgeries None record ed. Imaging None record ed. Medication Orders None record ed. Patient TargetsNo targets recorded. Patient Instructions Encounter Date Encounter Id Patient Instructions Last Modified By Organization Details Last Modified Time 05/25/2022 [id number] This physical does not replace the annual physical to be performed by your PCP. There may be additional screening tests that they will perform that we do not in the urgent care setting. Failure to follow up as recommended may result in significant adverse health consequences. ? If your symptoms worsen or you develop new symptoms that concern you, go to the emergency department for further evaluation. [email or web address] Not available 05/25/2022 10:25:15 Reason for Referral None Reported. Procedures Surgical History Date Name Laterality Status Provider Name and Address Organization Details Recorded Time OC- Physical completed GORDY [facility] 05/25/2022 10:03:47 Imaging Results None recorded. Procedure Notes None recorded. Medical Equipment None Reported. Vitals None Recorded Social History None recorded. Functional Status None recorded. Mental Status None recorded. Family History Nothing Reported. Medical History No medical history recorded. Gynecological HistoryNo gynecological history recorded. Obstetrics History GPAL:G 0 P 0 0 0 0 Immunizations Vaccine Type Date Status Note Provider Nam e and Address Organization Details Recorded Time Influenza, MDCK, quadrivalent, PF 05/25/2022 completed Geovanny Navarrete, [place] [place], [address], [place] - [facility] 05/25/2022 11:01:52 Past Encounters Encounter ID Performer Location Encounter Start Date Encounter Closed Date Diagnosis/Indication Diagnosis SNOMED-CT Code Diagnosis ICD10 Code Diagnosis Note [id number] Ghassan Cardr Nely [facility] [place] [address] 06/18/2020 12:53:51 06/18/2020 15:06:48 [id number] [address] [place] [address] 01/13/2018 13:40:42 01/13/2018 14:53:26 [id number] [place] [address] 05/21/2018 15:20:53 05/21/2018 16:28:57 [id number] Ghassan gomezlDr Nely [facility] [place] [address] 09/30/2016 10:25:44 09/30/2016 11:36:45 [id number] [address] [place] [address] [place] [address] 10/14/2018 18:03:58 10/14/2018 19:07:41 [id number] [address]an [address] [place] [address] [place] [address] 03/26/2017 09:55:37 03/26/2017 11:00:48 [id number] [place] Nav[place]rete [place] 21005Fannie Cardr Nely [facility] [place] [address] 05/25/2022 08:53:10 05/25/2022 11:13:46 History and physical examination, pre-employment [id number] Z02.1 [id number] Geovanny Navarrete [place] [address] [place] [address] 05/25/2022 10:37:35 05/25/2022 11:13:53 History and physical examination, pre-employment [id number] Z02.1 Health Concerns Section Related Observation LastModified by Organization Detai ls LastModified Time None Recorded Concern Status LastModified by Organization Details LastModified Time None Recorded Advance Directives Directive None Recorded Payers Encounter Date Sequence Insurance Name Policy Number Policy Brunson Covered Member ID Brunson Member ID Guarantor Name 05/21/2018 1 [facility] [id number] Ashleigh Mcdonald [id number] Ashleigh Mcdonald 10/14/2018 1 [facility] [id number] Ashleigh Mcdonald [id number] Ashleigh Mcdonald 06/18/2020 1 [facility] [id number] Ashleigh Mcdonald [id number] Ashleigh Mcdonald 05/25/2022 1 [facility] PL[facility] (MEDICAID HMO) [place] Ashleigh Mcdonald [id number] Ashleigh Mcdonald 05/25/2022 DO NOT USE Ashleigh Mcdonald PHYSICAL Ashleigh Mcdonald Notes Date Note Type Note Provider Name a mo Address Organization Details Recorded Time 05/25/2022 text/html physical Geovanny AMBROSE Navarrete [address] [place], [address], [place] - [facility] 05/25/2022 10:41:08 OBGyn Episode No OBEpisode recorded.
== END 2024-04-09 08:16 | disposition home or self-care (01) ==
LOC: HO.XRAY 08:15
PROVIDERS: PCP Family Medicine; Visit Provider Family Medicine
DX: M79.641 Pain in right hand (principal); M79.642 Pain in left hand
CPT/HCPCS: 73130

== ENCOUNTER → 2024-04-09 08:19 | Outpatient (BNV) | payer OTHER, SELFPAY | PROVIDERS: PCP Family Medicine; Visit Provider Radiology Diagnostic Radiology | DX: M79.641 Pain in right hand (principal); M79.642 Pain in left hand | CPT/HCPCS: 73130 ==

== ENCOUNTER 2024-04-23 08:43 | Outpatient (AMB) | payer OTHER, SELFPAY ==
--- NOTE | 2024-04-23 08:45 | MHC.OFFVIS ---
Vital Signs 04/23/24 08:46 Height 5 ft 5 in Weight 165 lb 12.602 oz BMI 27.6 BP 108/70 Blood Pressure Location Rt brachial Position Sitting Pulse 88 Pulse Source Pulse Oximeter Pulse Oximetry (%) 99 Oxygen Delivery Method Room Air Intake Visit Reasons: discuss EGD/Colonoscopy Intake Note: ESTABLISHED PATIENT for mgmt of prior gastritis hx. Discuss colo/egd. Chief Complaint; C/O recent onset of nausea w/o vomiting, reflux, constipation, and LUQ pain. Pt states that she had been well controlled until the last 2 days. No changes to daily routine that could have caused the sx per pt. Pt denies any additional concerns. Exercise Physiologist Certified Required: No Accompanied by: Self / Same As Patient Allergies naproxen [Naproxen] Allergy (Intermediate, Verified 04/23/24 08:46) RASH HPI HPI discuss EGD/Colonoscopy: Details: LAST VISIT: Abdominal discomfort H. pylori infection Postprandial epigastric pain Screening for colon cancer Plan Will test for H pylori today and will treat empirically if positive. Patient was treated with antibiotics in the past. Patient will be sent for upper endoscopy. She is due to go for colonoscopy as well. Patient was encouraged to avoid dietary triggers and late night snacking. Staying upright for minimum 3 hours after meals discussed with patient. Patient will return in 2 months to go over the prep. Patient is agreeable to current plan of care and verbalizes understanding of instructions. She was given the option to ask questions and all questions answered. ? Thank you for allowing me to participate in her care Orders Orders H Pylori Breath Test Today K21.9 TSH reflex Free T4 Today K59.00 Vitamin B12 and Folate Today R19.7 Vitamin D 25-OH (D2 and D3) Today E55.9 Transglutaminase IgA Today R10.9 Medications New omeprazole 20 mg PO DAILY 30 caps 3RF K21.9 TODAY'S VISIT Patient is here today for follow-up and to discuss lab results. We will be sending message to surgical schedulers to book upper endoscopy and colonoscopy for patient. Patient reports that she has been feeling better with omeprazole. Her symptoms of acid reflux are suppressed for the most part. However patient reports that in the past few days she has been having abdominal bloating, cramping to the left lower quadrant as well as trouble moving her bowels. Currently patient is not taking anything to help her move her bowels. However she did try [id number] laxative. Patient does not remember the name. States that she but store genetic brand. Patient denies any dyspepsia, dysphagia or odynophagia. Denies melena, hematochezia, unintentional weight loss or ribbon like stools. Patient admits that she does not drink enough water. Patient reports that she eats fairly healthy. H pylori breath test was negative. [facility] Medical History Cervical radicular pain Fall Right knee pain Sleep disorder, unspecified Excessive daytime sleepiness Pain of right sacroiliac joint Disc degeneration, lumbar Osteoarthritis of lower back Spondylosis of lumbosacral spine with radiculopathy Surgical History H/O cardiac radiofrequency ablation History of tubal ligation Family History Father Liver cancer Mother Hypertension Macular degeneration Son Drug addict Other Substance use disorder Social History Household Members: Spouse Household Members Other:: GRANDDAUGHTER Housing: House Alcohol intake: never Patient Tobacco Use Status: Never used Tobacco e-Cigarette/Vaping Use: Never Used Second Hand Smoke Exposure: No service: No Current occupational status: previously employed 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 Current occupational exposures/hazards: No Cognitive needs: No Hearing needs: No Vision needs: No (glasses) Review of Systems Const Denies weight gain and Denies weight loss ENT Reports no additional complaints, Denies dysphagia and Denies odynophagia Card Reports no additional complaints Resp Reports no additional complaints GI Reports abdominal pain (Epigastric, LUQ,occasional), Denies belching, Denies melena, Reports bloating, Denies change in bowel habits, Reports constipation, Denies dysphagia, Denies excessive flatus, Denies dyspepsia, Reports heartburn (Occasional), Denies diarrhea, Denies loose stools, Denies nausea, Denies odynophagia and Denies vomiting Reports no additional complaints Musc Reports no additional complaints Neuro Reports no additional complaints Psych Reports no additional complaints Endo Reports no additional complaints Physical Exam Vital Signs: Last Vital Signs Pulse 88 04/23/24 08:46 BP 108/70 04/23/24 08:46 Pulse Ox 99 04/23/24 08:46 Oxygen Delivery Method Room Air 04/23/24 08:46 BMI result Body Mass Index 27.6 Const General: healthy appearing, no acute distress and well developed Nutritional Appearance: well nourished Orientation/consciousness: patient oriented x3 Resp Effort & Inspection: normal respiratory effort, able to speak in complete sentences, no tracheal deviation and symmetric chest movement Auscultation: clear to auscultation bilaterally Cardio Rate: regular rate GI Inspection: Yes normal to inspection and No distended Palpation (GI): Soft to palpation, not firm, nontender and No hepatosplenomegaly present Auscultation: normal bowel sounds General: Yes no CVA tenderness Back/Spine/Pelvis Back: no CVA tenderness Skin General skin exam: elasticity normal, turgor normal and dry skin Neuro General: patient oriented x3 Psych Appearance: grossly normal Mental Status: mental status grossly normal Results Reviewed Results Reviewed: Laboratory Tests 10/10/23 02/12/24 02/14/24 06:30 09:05 08:50 Total Bilirubin 0.7 AST 27 ALT 20 Alkaline Phosphatase 83 Stool H. pylori Ag SEE NOTE A H. pylori Breath Test Negative Stool H pylori on October 10 2023 was positive for H pylori. Treatment given Laboratory Tests 02/12/24 09:35 Vitamin B12 986 H 25-OH Vitamin D Total 80 Folate 13.1 TSH 1.73 Tiss Transglutamin IgA <1.0 Assessment & Plan Assessment & Plan (1) Abdominal discomfort: Code(s): R10.9 - Unspecified abdominal pain Category: Medical (2) H. pylori infection: Code(s): A04.8 - Other specified bacterial intestinal infections Category: Medical (3) Postprandial epigastric pain: Code(s): R10.13 - Epigastric pain (4) Abdominal pain, LUQ (left upper quadrant): Code(s): R10.12 - Left upper quadrant pain (5) Constipation: Code(s): K59.00 - Constipation, unspecified Qualifiers: Constipation type: slow transit constipation Qualified Code(s): K59.01 - Slow transit constipation Plan Patient will continue taking omeprazole daily. Message sent to surgical schedulers to book upper endoscopy and colonoscopy for patient. Patient reports constipation. We will put her on senna daily. Increase fluid intake and activity to promote better bowel motility. Patient reports epigastric pain occasionally. Worse at night time. Avoid dietary triggers and late night snacking. Staying upright for minimum 3 hours after meals discussed with patient. Patient will be started on famotidine at bedtime. She can use it as needed. Patient will return in 2-3 months to discuss upper endoscopy and colonoscopy. She will call our office if she will have any GI concerning symptoms. Patient is agreeable to this plan and verbalizes understanding of instructions. She was given the opportunity to ask questions and all questions answered. Thank you for allowing me to participate in her care Medications: New sennosides (Natural Senna Laxative) 17.2 mg (2 x 8.6 mg) PO BEDTIME 60 tabs 3RF constipation K59.00 - Constipation, unspecified famotidine (Pepcid) 20 mg PO BEDTIME 30 tabs 3RF K21.9 - Gastro-esophageal reflux disease without esophagitis Coding Level of Care Code Est Pt Level 4 (81478) Complex EM visit Add On G2211 Diagnoses Abdominal discomfort R10.9 H. pylori infection A04.8 Postprandial epigastric pain R10.13 Abdominal pain, LUQ (left upper quadrant) R10.12 Slow transit constipation K59.01 Constipation type: slow transit constipation Time Spent (min) 40 Comment 25 minutes spent with patient and additional 15 minutes spent reviewing her records
[2024-04-23 08:46] VITALS: BP 108/70; PULSE 88; O2SAT 99; BMI 27.6
--- OUTSIDE RECORDS SUMMARY | 2024-04-23 09:22 | XMS_ITS | Data Portability ---
Author Organization [facility] [address] Address [address] [place] [address] Assessment No assessment recorded. Plan of Treatment [...] By Organization Details Last Modified Time 05/25/2022 [id number] This physical does not replace the annual [...] Recorded Time OC- Physical completed G[facility]Y [facility] 05/25/2022 10:03:47 Imaging Results None recorded. Procedure [...] Geovanny Navarrete, AMBR[place] [address] [place], [address], [place] - [facility] 05/25/2022 11:01:52 Past Encounters Encounter ID Performer Location Encounter Start Date Encounter Closed Date Diagnosis/Indication Diagnosis SNOMED-CT Code Diagnosis ICD10 Code Diagnosis Note [id number] Ghassan Cardr [place] [facility] [place] [address] 06/18/2020 12:53:51 06/18/2020 15:06:48 [id number] [address] [address] 01/13/2018 13:40:42 01/13/2018 14:53:26 [id number] [place] [address] 05/21/2018 15:20:53 05/21/2018 16:28:57 [id number] Ghassan gomezlDr [place] [place] [address] 09/30/2016 10:25:44 09/30/2016 11:36:45 [id number] [address] [place] [address] [place] [address] 10/14/2018 18:03:58 10/14/2018 19:07:41 [id number] [address]an [address] [place] [address] [place] [address] 03/26/2017 09:55:37 03/26/2017 11:00:48 [id number] [place] Nav[place]rete [place] 21005Fannie Cardr [facility] [place] [address] 05/25/2022 08:53:10 05/25/2022 11:13:46 History and physical examination, pre-employment 938248464 Z02.1 [id number] Geovanny Navarrete NP [address]Michael [facility] [place] [address] 05/25/2022 10:37:35 05/25/2022 11:13:53 History and physical examination, pre-employment 445007304 Z02.1 Health Concerns Section Related Observation LastModified by Organization Detai ls LastModified Time None Recorded Concern Status LastModified by Organization Details LastModified Time None Recorded Advance Directives Directive None Recorded Payers Encounter Date Sequence Insurance Name Policy Number Policy Brunson Covered Member ID Brunson Member ID Guarantor Name 05/21/2018 1 [facility] [id number] Ashleigh Mcdonald [id number] Ashleigh Mcdonald 10/14/2018 1 [facility] [id number] Ashleigh Mcdonald [id number] Ashleigh Mcdonald 06/18/2020 1 [facility] [id number] Ashleigh Mcdonald [id number] Ashleigh Mcdonald 05/25/2022 1 [facility] (MEDICAID HMO) [place] Ashleigh Mcdonald [id number] Ashleigh Mcdonald 05/25/2022 DO NOT USE Ashleigh Mcdonald PHYSICAL Ashleigh Mcdonald Notes Date Note Type Note Provider Name a md Address Organization Details Recorded Time 05/25/2022 text/html physical Geovanny AMBROSE Navarrete [address] [place], [address], [place] - [facility] 05/25/2022 10:41:08 OBGyn Episode No OBEpisode recorded.
--- OUTSIDE RECORDS SUMMARY | 2024-04-23 09:22 | XMS_ITS | Data Portability ---
Author Organization [facility] Address [address] [place] [address] Assessment No assessment recorded. Plan of Treatment Reminders Order Date Submit Date Provider Last Modified By Organization Details Last Modified Time Details Appointments None recorded. Lab CMP, serum or plasma 2017 018 [email or web address] Not available 8 07:08:59 CBC 2017 018 [email or web address] Not available 8 07:08:59 Referral None recorded. Procedures None recorded. Surgeries None recorded. Imaging XR, cervical spine 2018 019 [facility] (Imaging), [address] [place] [address], [address], 9 17:59:16 XR, lumbar spine 2017 018 [email or web address] Not available 8 08:15:22 Medication Orders None recorded. Patient TargetsNo targets recorded. Patient Instructions Encounter Date Encounter Id Patient Instructions Last Modified By Organization Details Last Modified Time 11/12/2017 [id number] Work physical an d foster forms completed maninder Not available 11/12/2017 16:12:50 Continue healthy exercise maninder Not available 11/12/2017 16:13:33 01/15/2018 [id number] acute low back pain: exercises maninder Not available 01/15/2018 11:17:17 Call if no relief maninder Not availabl e 01/15/2018 11:16:47 Work note 01/15-01/18/18 provided maninder Not available 01/15/2018 11:17:00 05/22/2018 [id number] neck pain: care instructions maninder Not available 05/22/2018 11:39:27 Reason for Referral None Reported. Results Created Date Observation Date Name Description Value Unit Range Abnormal Flag Note LastModifiedBy Organization Detail LastModifiedTime 07/19/19 18 07/12/2017 MAMMO , светланаe marion, bilat eral No observ ation record ed. [email or web address] Not Available 2017 14:49:29 01/22/20 18 01/10/2018 MAMMO , scree marion, digit al, bilat eral No observ ation record ed. [email or web address] Not Available 2017 14:19:28 01/22/20 18 01/15/2018 XR, lumba r spine No observ ation record ed. eskawski Not Available 2017 16:40:52 05/23/19 19 05/22/2018 XR, cervi billie spine No observ ation record ed. [facility] (Medical Records) [address] [place] [address], [address], 05/24/2018 12:16:41 Result Notes None recorded. Problems Name Problem SNOMED Code Status Onset Date Resolution Date Notes Provider Name and Address Organization Details Recorded Time Gastroesophage al reflux disease 987078830 Active 2017 Yesi cool [facility] 8 08:42:03 Obesity 250357523 Active 2017 Yesi cool [facility] 8 08:42:26 Problem Notes None recorded. Procedures Surgical History Date Name Laterality Status Provider Name and Address Organization Details Recorded Time Tubal Ligation completed Juli Lacy NP, [address] [facility], [place], [address], [facility] 11/12/2017 15:00:00 Imaging Results Imaging Date Name Status LastModified by Organiz ation Details LastModified Time 07/12/2017 MAMMO, screening, bilateral completed [email or web address] Information not available 07/18/2017 14:49:29 01/10/2018 MAMMO, screening, digital, bilateral completed Information not available 01/21/2018 14:19:28 01/15/2018 XR, lumbar spine completed Information not available 01/21/2018 16:40:52 05/22/2018 XR, cervical spine completed [facility] (Medical Records) [address] [place], [address], 05/24/2018 12:16:41 Procedure Notes None recorded. Medical Equipment None Reported. Allergies No known drug allergies Medications Name Sig Start Date Stop Date Status Note LastModified by Organization Details LastModified Time cyclobenzaprine 10 mg tablet active Not Available Not Available Not Available sucralfate 1 gram tablet 11/12 completed Not Available Not Available Not Available omeprazole 40 mg capsule,delayed release 11/12 completed Not Available Not Available Not Available diclofenac sodium 50 mg tablet,delayed release active Not Available Not Available Not Available Vitals Date Recorded Body weight Heart rate Oxygen saturation Oxygen saturation in Arterial blood by Pulse oximetry Body mass index (BMI) Body height Systolic blood pressure Diastolic blood pressure Provider Name and Address Organization Details Last Updated DateTime 8 33904.7 8 g 86 /min 98 % 98 % 28.1 kg/m2 160.66 cm 122 mm[Hg] 74 mm[Hg] [facility] 8 14:22:47 Date Recorded Body height Body mass index (BMI) Body weight Heart rate Oxygen saturation Oxygen saturation in Arterial blood by Pulse oximetry Systolic blood pressure Diastolic blood pressure Provider Name and Address Organization Details Last Updated DateTime 8 160.66 cm 27.5 kg/m2 40687.4 9 g 88 /min 98 % 98 % 100 mm[Hg] 66 mm[Hg] [facility] 8 14:36:54 Date Recorded Body height Body mass index (BMI) Body weight Heart rate Oxygen saturation Oxygen saturation in Arterial blood by Pulse oximetry Body temperature Systolic blood pressure Diastolic blood pressure Provider Name and Address Organization Details Last Updated DateTime 8 160.66 cm 27.4 kg/m2 44643.4 1 g 97 /min 98 % 98 % 98 [degF] 100 mm[Hg] 70 mm[Hg] [facility] 8 10:48:27 Date Recorded Body height Body mass index (BMI) Body weight Heart rate Oxygen saturation Oxygen saturation in Arterial blood by Pulse oximetry Systolic blood pressure Diastolic blood pressure Provider Name and Address Organization Details Last Updated DateTime 9 160.66 cm 26.8 kg/m2 96912.8 4 g 83 /min 98 % 98 % 118 mm[Hg] 70 mm[Hg] Arcelia Horton [facility] 9 11:26:45 Social History Question Answer Notes LastModified by Organizat ion Details LastModified Time Tobacco Smoking Status Never Smoker Yesi Espositotheresa cool [facility] 07/31/2017 08:42:38 What Was The Date Of Your Most Recent Tobacco Screening? 05/22/2018 Information n ot available 09/19/2018 Sex: Unknown Functional Status None recorded. Mental Status None recorded. Family History Relationship Description Onset Age of this Age Resolved Age Notes LastModified by Organization Details LastModified Time Mother Hypertensive disorder macula r carlin dickens Not available 11/12/2017 14:59:39 Medical History Condition Response Anesthesia Complications N Gynecological History Statement/Question Response If Post Menopausal, Age at Menopause 52 HPV Vaccine N Current Control Method Menopause Age at Menarche 13 Age at First Child 22 Obstetrics History GPAL:G 3 P 3 0 0 0 Type Value Full Term 3 Total 3 Past Encounters Encounter ID Performer Location Encounter Start Date Encounter Closed Date Diagnosis/Indication Diagnosis SNOMED-CT Code Diagnosis ICD10 Code Diagnosis Note [id number] Juli Lacy NP, [facility] [address] [facility],[place] [address] 07/31/2017 14:17:21 08/01/2017 08:15:10 Costal chondritis 68815615 M94.0 Ibu 600mg TID prn, avoid weighted exercises in pool X 1 week Fibrocysti c disease of breast 41715702 N60.19 stable Gastroesop hageal reflux disease 785637400 K21.9 improved with weight loss Obesity 344599656 E66.9 improved with dietary changes, schedule CPE 2017 [id number] Juli Lacy NP, [place] [facility] [address] [facility],[address] [address] 11/12/2017 14:12:27 11/12/2017 16:26:30 Adult health examination 888677120 Z00.01 Fibrocysti c disease of breast 68550883 N60.19 stable, f/u tapestry [id number] Juli Lacy NP, S [facility] [address] [facility],[place] [address] 01/15/2018 10:40:31 01/15/2018 16:46:48 Acute low back pain 280579843 M54.5 [id number] Juli Lacy NP, S [facility] [address] [facility],[place] [address] 05/22/2018 11:18:05 05/22/2018 12:16:32 Wry neck/torticollis 732202902 M43.6 Health Concerns Section Related Observation LastModified by Organization Detai ls LastModified Time None Recorded Concern Status LastModified by Organization Details LastModified Time None Recorded Advance Directives Directive None Recorded Payers Encounter Date Sequence Insurance Name Policy Number Policy Brunson Covered Member ID Brunson Member ID Guarantor Name 07/31/2017 1 [facility] [id number] Ashleigh Mcdonald [id number] Ashleigh Mcdonald 11/12/2017 1 [facility] [id number] Ashleigh Mcdonald [id number] Ashleigh Mcdonald 01/15/2018 1 [facility] [id number] Ashleigh Mcdonald [id number] Ashleigh Mcdonald 05/22/2018 1 [facility] [id number] Ashleigh Mcdonald [id number] Ashleigh Mcdonald Notes Date Note Type Note Provider Name a oh Address Organization Details Recorded Time 8 text/html Beginning to note discomfort ? over breastbone or right breast Saw [facility] healthcare provider, noted right breast lump Last mammo was nml 12/2016 Because lump noted had repeat mammo and ultrasound couple weeks ago, read as normal Has lost 27 lbs in last 5 months eating no carbohydrates No CP/SOB. No reflux Does have hot flashes at noc., no change , no diaphoresis Exercises in pool with foam weights that absorb water, ? actual weight Juli Lacy NP, [address] [place], [address], [facility] 07/31/2017 15:01:21 8 text/html Annual WellnessReported bypatient.Diet and Nutrition:healthy diet; follows low carb diet Fracture Risk:no history of fractures; no recent explained fracture; no sudden unexplained fractures; no previous musculoskeletal injuries Physical Activity:exercises on a regular basis; recent increase in physical activity; good physical condition; walks regularly and swims Additional Lifestyle Factors:no tobacco use; drinks alcohol (mild-moderate) Depression Risk:never feels sad, empty, or tearful; no loss of interest in activities; no significant changes in weight; no sleep disturbances or insomnia; no agitation; no loss of energy; no feelings of worthlessness or guilt; no thoughts of suicide; no history of depression; no history of mood disorders Hearing:no loss of hearing Vision:no vision problems Has adult son on drugs with 7 month old grand daughter plans to foster then adopt Juli Lacy NP, [address] [place], [address], [facility] 11/12/2017 16:14:21 8 text/html Rolando noted onset back pain, has had problems in past Pain persisted, Ibu 400 mg no help Went to urgent care-given diclofenac 50 mg BID and cyclobenzaprine 10 mg at hs, today feels a little better pain across low back and into right hip/ant. thigh. 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 can sit up Juli Lacy NP, [address] [place], [address], [facility] 01/15/2018 11:17:20 9 text/html Awoke yesterday with pain right side neck [facility]given diclofenac and flexeril pain went into shoulder and has tingling in arm to elbow Today right side of face feels like she had dental novacaine, no difficulty w/speech or eating Denies any injury/fall or change in activities Juli Lacy NP, [address] [facility], [place], [address], [facility] 05/22/2018 11:51:32 OBGyn Episode No OBEpisode recorded.
== END 2024-04-23 09:34 | disposition home or self-care (01) ==
PROVIDERS: PCP Family Medicine; Visit Provider Nurse Practitioner Family
DX: R10.9 Unspecified abdominal pain (principal); A04.8 Other specified bacterial intestinal infections; R10.13 Epigastric pain; R10.12 Left upper quadrant pain; K59.01 Slow transit constipation
CPT/HCPCS: 99214; G2211

== ENCOUNTER → 2024-04-23 08:43 | Outpatient (BNVA) | payer OTHER, SELFPAY | PROVIDERS: PCP Family Medicine; Visit Provider Nurse Practitioner Family | DX: A04.8 Other specified bacterial intestinal infections (principal); R10.13 Epigastric pain; R10.12 Left upper quadrant pain; K59.01 Slow transit constipation; Z79.899 Other long term (current) drug therapy | CPT/HCPCS: 99212 ==

== ENCOUNTER 2024-05-26 10:37 | Outpatient (RCR) | payer OTHER, SELFPAY ==
--- NOTE | 2024-04-21 10:43 | MHC.PT.EP ---
[facility] [place] Office [place] Office [place] Office [address] Margaret Cruz [address] [phone] F: [phone] F: [phone] F: [phone] F: [phone] Physical Therapy Plan of Care Date of Evaluation: 04/21/24 Date of Surgery: N/A Diagnosis: pain in right shoulder (RL) Assessment: pt is a 58 y/o female presenting to physical therapy w/ referring diagnosis of pain in right shoulder. Impairments include pain, decreased range of motion, decreased strength, impaired functional mobility, impaired postural awareness, and altered ambulation mechanics. pt is a good candidate for skilled PT due to age, potential remediation of impairments, typical disease/condition progression and prognosis, comorbidities, and motivation. pt would benefit from skilled PT intervention to provide a tailored strengthening and stretching exercise program, functional training, gait training, postural re-training, neuromuscular re-education, modalities as needed for pain, equipment safety demonstration. Frequency and Duration: The patient will be seen 2x/wk for 4 wks Short Term Goals: pt will be I w/ HEP to promote self-management of condition. pt will demo proper sitting and standing posture to reduce anterior shoulder w/ seated and standing ADLs. Mcfp Goals: pt will report a statistically significant improvement in self-reported outcome measure, SPADI, to promote return to PLOF. pt will lift 10# and carry x50' in B UEs to promote return to carrying her purse and groceries. Treatment Plan: Modalities to reduce pain, spasms and effusion. Manual therapy to restore motion and function. Therapeutic exercise to improve strength and flexibility. Neuromuscular re-education for posture and balance. Therapeutic activities to return to functional activities of daily living. Electronically signed by: Alexsandra Hu PT, DPT Please sign and return to therapist. Thank you for your referral.
--- NOTE | 2024-06-05 11:14 | MHC.PT.DC ---
[facility] [place] [facility] [place] [facility] [place] Office [address] Margaret Cruz [address] [phone] F: [phone] F: [phone] F: [phone] F: [phone] Physical Therapy Discharge Report Diagnosis: pain in right shoulder (RL) Date of Surgery: N/A Date of Evaluation: 04/21/24 Date of Discharge: 06/05/24 Treatments to Date: 7 Cancellations to Date: 4 No Shows to Date: 0 Discharge Status: Improved Function Independent with HEP Discharge Summary: The patient overall was reporting an improvement in her neck and upper trapezius pain. She required moderate-maximum verbal cueing for proper positioning for cervical stretches. Otherwise, she is independent with her home exercise program. She is discharged from this physical therapy plan of care. Electronically signed by: Alexsandra Hu PT, DPT Please sign and return to therapist. Thank you for your referral.
== END 2024-06-05 11:14 | disposition home or self-care (01) ==
LOC: HO.PT 10:37
PROVIDERS: PCP Family Medicine; Visit Provider Family Medicine
DX: M25.511 Pain in right shoulder (principal)
CPT/HCPCS: 97110; 97112; 97140; 97161; 97530

== ENCOUNTER 2024-06-09 06:47 | Day surgery (SDC) | payer OTHER, SELFPAY ==
--- OUTSIDE RECORDS SUMMARY | 2024-05-28 16:54 | XMS_ITS | Data Portability ---
Author Organization [facility] [id number] Address [address] [place] [address] Assessment No assessment recorded. Plan of Treatment [...] By Organization Details Last Modified Time 05/25/2022 [id number] This physical does not replace the annual [...] Geovanny Navarrete, AMBROSE [address] [place], [address], [place] - [facility] 05/25/2022 11:01:52 Past Encounters Encounter ID Performer Location Encounter Start Date Encounter Closed Date Diagnosis/Indication Diagnosis SNOMED-CT Code Diagnosis ICD10 Code Diagnosis Note [id number] Ghassan Cardr Nely [facility] [place] [address] 06/18/2020 12:53:51 06/18/2020 15:06:48 [id number] [address] [place] [address] 01/13/2018 13:40:42 01/13/2018 14:53:26 [id number] [place] [address] 05/21/2018 15:20:53 05/21/2018 16:28:57 [id number] Ghassan gomezlDr Nely [facility] [place] [address] 09/30/2016 10:25:44 09/30/2016 11:36:45 [id number] Ghassan g[address]Dr [address] [place] [address] [place] [address] 10/14/2018 18:03:58 10/14/2018 19:07:41 [id number] Ghassan gomezlDr [address] [place] [address] [place] [address] 03/26/2017 09:55:37 03/26/2017 11:00:48 [id number] [place]te [place] 21005Fannie Cardr Nely [facility] [place] [address] 05/25/2022 08:53:10 05/25/2022 11:13:46 History and physical examination, pre-employment [id number] Z02.1 [id number] Geovanny Navarrete NP [address] Cardr [facility] [place] [address] 05/25/2022 10:37:35 05/25/2022 11:13:53 History and physical examination, pre-employment [id number] Z02.1 Health Concerns Section Related Observation LastModified by Organization Detai ls LastModified Time None Recorded Concern Status LastModified by Organization Details LastModified Time None Recorded Advance Directives Directive None Recorded Payers Encounter Date Sequence Insurance Name Policy Number Policy Brunson Covered Member ID Brunson Member ID Guarantor Name 05/21/2018 1 [facility] [id number] Ashleigh Mcdonald [id number] Ashleigh Mcdonald 10/14/2018 1 [facility] [id number] Ashleigh Mcdonald [id number] Ashleigh Mcdonald 06/18/2020 1 [facility] [id number] Ashleigh Mcdonald [id number] Ashleigh Mcdonald 05/25/2022 1 [facility] - HEALTH NET PLAN (MEDICAID HMO) [place] Ashleigh Mcdonald [id number] Ashleigh Mcdonald 05/25/2022 DO NOT USE Ashleigh Mcdonald PHYSICAL PHYSICAL Ashleigh Mcdonald Notes Date Note Type Note Provider Name a nd Address Organization Details Recorded Time 05/25/2022 text/html physical Geovanny AMBROSE Navarrete [address] [place], [address], [place] - [facility] 05/25/2022 10:41:08 OBGyn Episode No OBEpisode recorded.
[2024-06-09 07:12] VITALS: BMI 27.3
[2024-06-09 07:18] VITALS: BP 130/58; PULSE 96; RESP 16; TEMP 37.2; O2SAT 98
--- NOTE | 2024-06-09 07:37 | MHC.SHP ---
Pre-Procedural Eval Section A - 24 Hr Update-Section A only Date of Service: 06/09/24 The patient is an INPATIENT: No The patient has been examined within 24 hours of the surgical procedure. The History & Physical has been completed within 30 days and I have reviewed it.: No Section B - Complete if H&P > 30 days Chief Complaint: surveillance for colon polyps, GERD Relevant Family History (Specify if Yes): No Relevant Social History: None Present Medications: see Short Stay Collaborative assessment Medical History: Significant History (Cervical radicular pain Fall Right knee pain Sleep disorder, unspecified Excessive daytime sleepiness Pain of right sacroiliac joint Disc degeneration, lumbar Osteoarthritis of lower back Spondylosis of lumbosacral spine with radiculopathy) History of Previous Operations: Relevant previous surgery/procedure and date(s) (H/O cardiac radiofrequency ablation History of tubal ligation) Allergies: Allergies Allergy/AdvReac Type Severity Reaction Status Date / Time naproxen [Naproxen] Allergy Intermediate RASH Verified 06/09/24 07:10 Review of Systems Sugical H&P ROS: Negative: Constitution, Cardiovascular, Respiratory and Gastrointestinal Exam Surgical H&P Exam: Normal: Heart, Normal: Lungs, Normal: Extremities and Normal: Abdomen Plan Diagnosis/Plan: Unchanged I have reviewed the history and physical and performed a pertinent physical examination on my patient. No changes have occurred unless specified. Time Spent With Patient Time: Total time managing care of this patient today ____ minutes.
[2024-06-09] MEDS: Lactated Ringers 1,000 ML 100 ML IVCONT (07:52)
--- NOTE | 2024-06-09 08:06 | P.CONAN_ITS ---
[facility] Active Problems Active Problems: All Active Problems Right shoulder pain (Acute) Hand pain (Acute) Encounter for well woman exam with routine gynecological exam (Acute) Gastritis (Acute) Abdominal discomfort (Acute) H. pylori infection (Acute) Iron deficiency anemia (Acute) Palpitations (Acute) Chest pain (Acute) Chest pressure (Acute) Elevated C-reactive protein (CRP) (Acute) Elevated fasting glucose (Acute) Fibromyalgia (Acute) Chronic primary generalized pain (Acute) Anxiety and depression (Acute) Acute pain of left shoulder (Acute) Bilateral knee pain (Acute) Insomnia (Acute) Back pain (Acute) Screening for cervical cancer (Acute) Hot flashes (Acute) Encounter for annual routine gynecological examination (Acute) Exposure to COVID-19 virus (Acute) Screening-pulmonary TB (Acute) Snoring (Acute) Daytime sleepiness (Acute) Fatigue (Acute) Joint pain (Acute) Screening for colon cancer (Acute) Breast cancer screening by mammogram (Acute) Adult general medical exam (Acute) Ear infection (Acute) Sinus infection (Acute) Viral illness (Acute) Change in weight (Acute) Abdominal pain (Acute) Disc degeneration, lumbar (Acute) Past Medical History Medical History Anxiety and depression Fibromyalgia Iron deficiency anemia Cervical radicular pain Fall Right knee pain Sleep disorder, unspecified Excessive daytime sleepiness Pain of right sacroiliac joint Disc degeneration, lumbar Osteoarthritis of lower back Spondylosis of lumbosacral spine with radiculopathy Family History Family History Father Liver cancer Mother Hypertension Macular degeneration Son Drug addict Other Substance use disorder Surgical History Surgical History H/O cardiac radiofrequency ablation History of tubal ligation History of Problems with Anesthesia: No Social History Social History Household Members: Spouse Household Members Other:: GRANDDAUGHTER Housing: House Alcohol intake: never Patient Tobacco Use Status: Never used Tobacco e-Cigarette/Vaping Use: Never Used Second Hand Smoke Exposure: No Use of substances other than those prescribed or required for medical reasons: No Are you DNR?: No Advance Directives: No Advance Directives Information Provided: Yes service: No Current occupational status: previously employed 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 Current occupational exposures/hazards: No Cognitive needs: No Hearing needs: No Vision needs: No (glasses) Meds Allergies Allergy/AdvReac Type Severity Reaction Status Date / Time naproxen [Naproxen] Allergy Intermediate RASH Verified 06/09/24 07:10 Active Medications: Current Medications Lactated Ringer's (Lr) 1,000 mls @ 100 mls/hr IVCONT .Q10H [place] Last Admin: 06/09/24 07:52 Dose: 100 mls/hr Home Medications ?Medication ?Instructions ?Recorded ?Confirmed ?Last Taken ?Type cholecalciferol (vitamin D3) 250 250 mcg PO DAILY 07/19/21 06/09/24 Unknown History mcg (10,000 unit) capsule duloxetine 60 mg capsule,delayed 60 mg PO DAILY 04/23/24 06/09/24 Unknown History release Exam Height,Weight and Vital Signs: Height 5 ft 5 in Weight 74.389 kg Last Vital Signs Temp 98.9 F 06/09/24 07:18 Pulse 96 06/09/24 07:18 Resp 16 06/09/24 07:18 BP 130/58 L 06/09/24 07:18 Pulse Ox 98 06/09/24 07:18 O2 Del Method Room Air 06/09/24 07:18 Airway Mallampati Class: II TM Dist: >3cm Neck ROM: Full Loose/Missing/Broken Teeth: No Heart: RRR Lungs: CTA Assessment and Plan Assessment Anesthesia Assessment: Anesthesia Plan Discussed and Chart Reviewed Final Anesthetic Review History of Problems with Anesthesia: No NPO: Yes ASA Class: II Final Preanesthetic Review: Meds/Allgs Chart Reviewed, Consent Obtained/Reviewed and Anes Risks/Benef Reviewed Patient Risk: Low Procedure Risk: Intermediate Anesthetic Plan Anesthetic Plan: MAC: Disposition: Standard PACU
--- NOTE | 2024-06-09 08:51 | P.OPN-COLO_ITS ---
Colonoscopy Operative Note Operative Note Date of Service: 06/09/24 Narrative: FLEXIBLE TRANSORAL UPPER GASTROINTESTINAL ENDOSCOPY WITH BIOPSIES AND COLONOSCOPY TILL CECUM WITH BIOPSIES Pre-op diagnosis: Surveillance for colon polyps, GERD Post-op diagnosis: GERD, Gastritis, Colon Polyps, melanosis coli, Diverticulosis, hemorrhoids Endoscopist:? Gilmar Thomas MD Anesthesia:?MAC UPPER ENDOSCOPY Consent: Indications for the procedure and potential complications of bleeding, perforation, reaction to medications and missed diagnosis were discussed with the patient and informed consent was obtained. Instrument: Olympus GIF H 190 mid size upper endoscope Monitoring: Vital signs and clinical assessment, continuous EKG monitoring, Pulse oximetry, Carbon Dioxide monitoring and blood pressure monitoring were done throughout the procedure. Procedure: The patient was placed in the left lateral decubitis position and pre-procedure medications were administered and a bite block was placed. The endoscope was inserted into the mouth and advanced under direct vision to the third part of duodenum. A careful inspection was made as the upper endoscope was withdrawn including a retroflexed examination of the proximal stomach; Findings and interventions are described below. Findings: Larynx: Normal Esophagus: GE junction at 35 cms. No esophagitis or Caal's. Stomach: Moderate diffuse gastric erythema - biopsies were obtained from the gastric body and antrum. Grade 2 flap valve on retroflexed examination of the cardia. Duodenum: Normal bulb and descending duodenum Biopsies were obtained from descending duodenum to check for celiac sprue Intervention: Biopsies as noted above COLONOSCOPY PROCEDURE NOTE Instrument: Olympus PCF H 190 L variable stiffness pediatric colonoscope Monitoring: Vital signs and clinical assessment, intermittent blood pressure monitoring, continuous EKG monitoring, Pulse oximetry and Carbon Dioxide monitoring were done throughout the procedure. Please see anesthesia flowsheet. Colon withdrawl time was 20 minutes. Procedure: The patient was placed in the left lateral decubitis position and pre-procedure medications were administered. After a digital rectal examination of the ano-rectum, the video colonoscope was inserted into the rectum and advanced through the colon to the cecum. The colonoscope was slowly withdrawn in a retrograde panoramic fashion and the colon mucosa was carefully examined including a retroflexed view of the rectum. Findings and interventions are described below. Procedure Difficulty: Colon was long and tortuous and there was some loop formation. LLQ pressure was applied to intubate the cecum Findings: Terminal Ileum: Not evaluated Cecum: Mild melanosis coli throughout the colon Ascending Colon: Mild melanosis coli throughout the colon - random biopsies were obtained from the right colon Transverse Colon: Mild melanosis coli Descending Colon: A 4-5 mm sessile polyp - removed with a cold biopsy Mild melanosis coli Sigmoid Colon: Moderate diverticulosis and mild melanosis coli Rectum: Normal Ano-rectum: Perianal skin tags Colon preparation: Good after copious irrigation. [place] Bowel Preparation Scale Right colon; 2 Transverse colon: 2 Left colon; 2 (0 = Unprepared colon segment with mucosa not seen due to solid stool that cannot be cleared. 1 = Portion of mucosa of the colon segment seen, but other areas of the colon segment not well seen due to staining, residual stool and/or opaque liquid. 2 = Minor amount of residual staining, small fragments of stool and/or opaque liquid, but mucosa of colon segment seen well. 3 = Entire mucosa of colon segment seen well with no residual staining, small fragments of stool or opaque liquid) Impression and Post Procedure Diagnosis: Endoscopy Findings: ESOPHAGUS: Normal STOMACH: Moderate diffuse gastric erythema - biopsies were obtained from the gastric body and antrum. DUODENUM: Normal -biopsied to check for celiac sprue. Colonoscopy Findings: One small polyp was removed Mild melanosis coli throughout the entire colon - biopsies were obtained from the right colon. Moderate diverticulosis seen in the sigmoid colon Plan: Pt has a FU appointment on 07/04/24 with Crista Wild NP Repeat Colonoscopy in 5 years if polyps are adenomatous and due to a hx of colon polyps (Dulcolax 10 mg daily x 5 days and adult colonoscope for future colonoscopies) A summary of above findings and relevant handouts were given to the patient. BIOPSIES SHOWED: A. Small bowel, biopsy: Small bowel mucosa with preserved villi and no specific change; no evidence of celiac disease. B. Gastric antrum, biopsy: Gastric antral mucosa with minimal chronic inactive gastritis; negative for H. pylori, intestinal metaplasia and dysplasia. C. Gastric body, biopsy: Gastric antral type mucosa with mild chronic inactive gastritis, cannot exclude atrophic gastritis with pre-pyloric metaplasia; negative for H. pylori, intestinal metaplasia and dysplasia D. Colon, right, biopsy: Colonic mucosa with lymphoid aggregate, and pigmented lamina propria macrophages consistent with melanosis coli. E. Colon, descending, polyp: Tubular adenoma; negative for high-grade dysplasia and carcinoma. Letter sent with biopsy results. Patient was placed on the recall list for repeat EGD (FU of gastric metaplasia) in 3 years and repeat colonoscopy in 5 years.
[2024-06-09 09:31] VITALS: BP 102/56; PULSE 77; RESP 18; TEMP 36.2; O2SAT 100
[2024-06-09 09:46] VITALS: BP 110/74; PULSE 94; RESP 18; TEMP 36.2; O2SAT 99
== END 2024-06-09 10:41 | disposition home or self-care (01) ==
PROVIDERS: PCP Family Medicine; Visit Provider Internal Medicine Gastroenterology
PROC: (CPT 45380; principal; 2024-06-09 08:30)
DX: Z12.11 Encounter for screening for malignant neoplasm of colon (principal); D12.4 Benign neoplasm of descending colon; K56.2 Volvulus; A04.8 Other specified bacterial intestinal infections; K57.30 Diverticulosis of large intestine without perforation or abscess without bleeding; K64.4 Residual hemorrhoidal skin tags; K29.60 Other gastritis without bleeding; K21.9 Gastro-esophageal reflux disease without esophagitis; D50.9 Iron deficiency anemia, unspecified
CPT/HCPCS: 45380; 43239; 88305; 88341; 88342; J1596; J2003; J2704

== ENCOUNTER → 2024-06-09 06:47 | Outpatient (BNV) | payer OTHER, SELFPAY | PROVIDERS: PCP Family Medicine; Visit Provider Internal Medicine Gastroenterology | DX: Z12.11 Encounter for screening for malignant neoplasm of colon (principal); Z86.0100 Personal history of colon polyps, unspecified; D12.4 Benign neoplasm of descending colon; K63.89 Other specified diseases of intestine; K21.9 Gastro-esophageal reflux disease without esophagitis; K29.70 Gastritis, unspecified, without bleeding | CPT/HCPCS: 43239; 45380 ==

== ENCOUNTER 2024-06-13 09:22 | Outpatient (AMB) | payer OTHER, SELFPAY ==
--- NOTE | 2024-06-13 09:48 | A.OFFPC_ITS ---
Vital Signs 06/13/24 10:01 Height 5 ft 5 in Weight 163 lb 2 oz BMI 27.1 BP 110/70 Blood Pressure Location Rt brachial Position Sitting Respiration 10 L Pulse 88 Pulse Source Pulse Oximeter Temp 98.5 F Temp Source Oral Pulse Oximetry (%) 99 Oxygen Delivery Method Room Air Intake Visit Reasons: f/u hand pain Intake Note: follow up hand pain. 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 Likely osteoarthritis, following up on x-rays. Had ordered celecoxib. Had sent an increase in duloxetine from 30mg daily to 30mg b.i.d. Hand x-ray 04/09/24 showed arthritis in the DIP joints, with imaging appearance raising possibility of primary erosive osteoarthritis. She notes her hands feel steady/stable. She reports intermittent flare-ups. [facility] Medical History Anxiety and depression Fibromyalgia Iron deficiency anemia Cervical radicular pain Fall Right knee pain Sleep disorder, unspecified Excessive daytime sleepiness Pain of right sacroiliac joint Disc degeneration, lumbar Osteoarthritis of lower back Spondylosis of lumbosacral spine with radiculopathy Surgical History H/O cardiac radiofrequency ablation History of tubal ligation Family History Father Liver cancer Mother Hypertension Macular degeneration Son Drug addict Other Substance use disorder Social History Household Members: Spouse Household Members Other:: GRANDDAUGHTER Housing: House Alcohol intake: never Patient Tobacco Use Status: Never used Tobacco e-Cigarette/Vaping Use: Never Used Second Hand Smoke Exposure: No service: No Current occupational status: previously employed 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 1. Little interest or pleasure in doing things: several days 2. Feeling down, depressed, or hopeless: several days 3. Trouble falling or staying asleep, or sleeping too much: more than half the days 4. Feeling tired or having little energy: several days 5. Poor appetite or overeating: several days 6. Feeling bad about yourself - or that you are a failure or have let yourself or your family down: not at all 7. Trouble concentrating on things, such as reading the newspaper or watching television: several days 8. Moving or speaking so slowly that other people could have noticed. Or the opposite - being so fidgety or restless that you have been moving around a lot more than usual: not at all 9. Thoughts that you would be better off or of hurting yourself in some way: not at all Total score: 7 Source: Developed by Drs. Christopher Jackson, Cielo Moya, Phil Boyd and colleagues, with an educational deanne from [employer]. Thrive Questionnaire Date Thrive assessed: 02/09/24 I am a: Patient What is your living situation today?: I have a steady place to live Within the past 12 months, did the food you bought not last and you didn't have the money to get more?: Never true Within the past 12 months, did you worry whether your food would run out before you got money to buy more?: Never true Do you have trouble paying for medicines?: No Do you have trouble getting transportation to medical appointments?: No Do you have trouble paying your heating and electricity bill?: Yes Do you have trouble taking care of your child, family member or friend?: No Do you have trouble with day-to-day activities such as bathing, preparing meals, shopping, managing finances, etc.?: No Are you currently unemployed and looking for a job?: I choose not to answer this question Are you interested in more education?: No Please select the resources that you would like help with: None Currently or been in a relationship where the following occur: I choose not to answer THRIVE Score: 1 AUDIT C Alcohol Use Questionnaire (AUDIT-C) 1. How often do you have a drink containing alcohol?: Never Total Score: 0 TREV-7 AMB Questionnaire TREV-7 Date TREV - 7 assessed: 05/10/22 Feeling nervous, anxious, or on edge: 1 = Several days Not being able to stop or control worryin = Not at all Worrying too much about different things: 0 = Not at all Trouble relaxin = Several days Being so restless that it is hard to sit still: 0 = Not at all Becoming easily annoyed or irritable: 1 = Several days Feeling afraid as if something awful might happen: 0 = Not at all Total TREV-7 score (0-4 normal; 5-9 mild; 10-14 moderate; 15-21 severe): 3 Source: Developed by Drs. Christopher Jackson, Cielo Moya, Phil Boyd and colleagues, with an educational deanne from [employer]. Review of Systems Const Denies chills, Denies fatigue, Denies fever(s), Denies headache(s) and Denies weakness ENT Denies dizziness and Denies headache(s) Card Denies dyspnea Resp Denies cough, Denies dyspnea, Denies wheezing and Denies other (shortness of breath) Musc Denies numbness and Denies tingling Neuro Denies dizziness, Denies headache(s), Denies numbness, Denies tingling and Denies weakness Psych Denies anxiety and Denies depression Endo Denies fatigue Aller/Immun Denies wheezing Physical exam (Primary Care) Vital Signs: Last Vital Signs Temp 98.5 F 06/13/24 10:01 Pulse 88 06/13/24 10:01 Resp 10 L 06/13/24 10:01 BP 110/70 06/13/24 10:01 Pulse Ox 99 06/13/24 10:01 Oxygen Delivery Method Room Air 06/13/24 10:01 BMI result Body Mass Index 27.1 Tobacco/Smoking Status: Tobacco use Status Tobacco use date assessed 09/07/23 06/13/24 09:49 Patient Tobacco Use Status Never used Tobacco 06/13/24 09:49 e-Cigarette/Vaping Use Never Used 06/13/24 09:49 PHQ-9: PHQ-9 Score PHQ-9: Total score 7 06/13/24 10:21 Thrive Assessment: Date of Thrive Assessment Date Thrive assessed 02/09/24 06/13/24 09:49 Currently or been in a relationship where the following occur: I choose not to answer Const General: well developed; No acute distress Nutritional Appearance: well nourished Orientation/consciousness: patient oriented x3 HENMT Head: Yes normocephalic and Yes atraumatic Eyes General: appearance normal, both eyes and all related structures Pupils: Equal, round and reactive pupils present EOM: EOMs intact bilaterally Resp Effort & Inspection: normal respiratory effort Auscultation: clear to auscultation bilaterally Cardio Rate: regular rate Rhythm: regular rhythm Heart sounds: S1 normal heart sound present, S2 normal heart sound present, no gallops, no murmurs and no rubs Neuro General: patient oriented x3 and gait normal Cranial nerves: Yes Equal, round and reactive pupils present Psych Affect: normal affect Coding Level of Care Code Est Pt Level 4 (20941) Diagnoses Osteoarthritis of hands, bilateral M19.041; M19.042 Allergies T78.40XA Fibromyalgia M79.7 Assessment & Plan Assessment & Plan (1) Osteoarthritis of hands, bilateral: Code(s): M19.041 - Primary osteoarthritis, right hand; M19.042 - Primary osteoarthritis, left hand Category: Medical Plan: Fairly?tolerable?today?though?she?does?get?flare-ups. Continue?Celebrex?which?she?is?tolerating?well. Duloxetine?may?also?help?and?she?has?diclofenac?gel?well. (2) Allergies: Code(s): T78.40XA - Allergy, unspecified, initial encounter Category: Medical Plan: Allergic?rhinitis?with?high?pollen?counts?outside Start?Flonase - script?sent (3) Fibromyalgia: Code(s): M79.7 - Fibromyalgia Category: Medical Plan: Fibromyalgia.??Patient?has?duloxetine?and?this?seems?fairly?well?controlled. Had?advised?he?take?duloxetine?30?mg?b.i.d.?and?she?will?do?this Medications: New duloxetine 30 mg PO BID 90 days 180 caps 3RF fluticasone propionate 50 mcg/actuation (Flonase Allergy Relief) administer into each nostril 1 spray intranasal Q12H 30 days 16 grams 2RF
--- OUTSIDE RECORDS SUMMARY | 2024-06-13 09:53 | XMS_ITS | Data Portability ---
Author Organization LOC [facility] [id number] Address [address] [place] [address] Assessment No assessment recorded. Plan of Treatment [...] By Organization Details Last Modified Time 05/25/2022 [id number] This physical does not replace the annual [...] Geovanny Navarrete, AMBR[place] [address] [place], [address], [place] - [facility] 05/25/2022 11:01:52 Past Encounters Encounter ID Performer Location Encounter Start Date Encounter Closed Date Diagnosis/Indication Diagnosis SNOMED-CT Code Diagnosis ICD10 Code Diagnosis Note [id number] Ghassan Cardr Nely [facility] [place] [address] 06/18/2020 12:53:51 06/18/2020 15:06:48 [id number] [address]an [address] [place] [address] 01/13/2018 13:40:42 01/13/2018 14:53:26 [id number] [place] [address] 05/21/2018 15:20:53 05/21/2018 16:28:57 [id number] Ghassan gomezlDr Nely [facility] [place] [address] 09/30/2016 10:25:44 09/30/2016 11:36:45 [id number] Ghassan gomezlDr [address] [place] [address] [place] [address] 10/14/2018 18:03:58 10/14/2018 19:07:41 [id number] Ghassan gomezlDr [address] [place] [address] [place] [address] 03/26/2017 09:55:37 03/26/2017 11:00:48 [id number] [place]rete [place] 21005Fannie Cardr Nely [facility] [place] [address] 05/25/2022 08:53:10 05/25/2022 11:13:46 History and physical examination, pre-employment 721953136 Z02.1 [id number] Geovanny Navarerte NP [address] [facility] [place] [address] 05/25/2022 10:37:35 05/25/2022 11:13:53 History and physical examination, pre-employment [id number] Z02.1 Health Concerns Section Related Observation LastModified by Organization Detai ls LastModified Time None Recorded Concern Status LastModified by Organization Details LastModified Time None Recorded Advance Directives Directive None Recorded Payers Encounter Date Sequence Insurance Name Policy Number Policy Brunson Covered Member ID Brunson Member ID Guarantor Name 05/21/2018 1 [facility] [id number] Ashleigh Mcdonald [id number] Ashleigh Mcdonald 10/14/2018 1 [facility] [id number] Ashleigh Mcdonald [id number] Ashleigh Mcdonald 06/18/2020 1 [facility] [id number] Ashleigh Mcdonald [id number] Ashleigh Mcdonald 05/25/2022 1 [facility] - HEALTH NET PLAN (MEDICAID HMO) [place] Ashleigh Mcdonald [id number] Ashleigh Mcdonald 05/25/2022 DO NOT USE Ashleigh Mcdonald PHYSICAL PHYSICAL Ashleigh Mcdonald Notes Date Note Type Note Provider Name a nd Address Organization Details Recorded Time 05/25/2022 text/html physical Geovanny AMBROSE Navarrete [address] [place], [address], [place] - [facility] 05/25/2022 10:41:08 OBGyn Episode No OBEpisode recorded.
--- OUTSIDE RECORDS SUMMARY | 2024-06-13 09:53 | XMS_ITS | Data Portability ---
Author Organization [facility] Address [address] [place] [address] Assessment No assessment recorded. Plan of Treatment Reminders Order Date Submit Date Provider Last Modified By Organization Details Last Modified Time Details Appointments None recorded. Lab CMP, serum or plasma 2017 018 [email or web address] Not available 8 07:08:59 CBC 2017 018 [email or web address] Not available 8 07:08:59 Referral None recorded. Procedures None recorded. Surgeries None recorded. Imaging XR, cervical spine 2018 019 [facility] (Imaging), [address] [place] [address], [address], 9 17:59:16 XR, lumbar spine 2017 018 [email or web address] Not available 8 08:15:22 Medication Orders None recorded. Patient TargetsNo targets recorded. Patient Instructions Encounter Date Encounter Id Patient Instructions Last Modified By Organization Details Last Modified Time 11/12/2017 [id number] Work physical an d foster forms completed maninder Not available 11/12/2017 16:12:50 Continue healthy exercise maninder Not available 11/12/2017 16:13:33 01/15/2018 [id number] acute low back pain: exercises maninder Not available 01/15/2018 11:17:17 Call if no relief maninder Not availabl e 01/15/2018 11:16:47 Work note 01/15-01/18/18 provided maninder Not available 01/15/2018 11:17:00 05/22/2018 [id number] neck pain: care instructions maninder Not available [...] billie spine No observ ation record ed. [facility] (Medical Records) [address] [place] [address], [address], 05/24/2018 12:16:41 Result Notes None recorded. Problems Name Problem SNOMED Code Status Onset Date Resolution Date Notes Provider Name and Address Organization Details Recorded Time Gastroesophage al reflux disease 051521903 Active 2017 Yesi cool [facility] 8 08:42:03 Obesity 859353427 Active 2017 Yesi cool [facility] 8 08:42:26 Problem Notes None recorded. Procedures Surgical History Date Name Laterality Status Provider Name and Address Organization Details Recorded Time Tubal Ligation completed Juli Lacy NP, [address] [facility], [place], [address], [facility] 11/12/2017 15:00:00 Imaging Results Imaging Date Name Status LastModified by Organiz ation Details LastModified Time 07/12/2017 MAMMO, screening, bilateral completed [email or web address] Information not available 07/18/2017 14:49:29 01/10/2018 MAMMO, screening, digital, bilateral completed Information not available 01/21/2018 14:19:28 01/15/2018 XR, lumbar spine completed Information not available 01/21/2018 16:40:52 05/22/2018 XR, cervical spine completed [facility] (Medical Records) [address] [place], [address], 05/24/2018 12:16:41 Procedure Notes None recorded. Medical [...] Address Organization Details Last Updated DateTime 8 75791.7 8 g 86 /min 98 % 98 % 28.1 kg/m2 160.66 cm 122 mm[Hg] 74 mm[Hg] [facility] 8 14:22:47 Date Recorded Body height Body mass index (BMI) Body weight Heart rate Oxygen saturation Oxygen saturation in Arterial blood by Pulse oximetry Systolic blood pressure Diastolic blood pressure Provider Name and Address Organization Details Last Updated DateTime 8 160.66 cm 27.5 kg/m2 75000.4 9 g 88 /min 98 % 98 % 100 mm[Hg] 66 mm[Hg] [facility] 8 14:36:54 Date Recorded Body height Body mass index (BMI) Body weight Heart rate Oxygen saturation Oxygen saturation in Arterial blood by Pulse oximetry Body temperature Systolic blood pressure Diastolic blood pressure Provider Name and Address Organization Details Last Updated DateTime 8 160.66 cm 27.4 kg/m2 04410.4 1 g 97 /min 98 % 98 % 98 [degF] 100 mm[Hg] 70 mm[Hg] [facility] 8 10:48:27 Date Recorded Body height Body mass index (BMI) Body weight Heart rate Oxygen saturation Oxygen saturation in Arterial blood by Pulse oximetry Systolic blood pressure Diastolic blood pressure Provider Name and Address Organization Details Last Updated DateTime 9 160.66 cm 26.8 kg/m2 87148.8 4 g 83 /min 98 % 98 % 118 mm[Hg] 70 mm[Hg] Arcelia Horton [facility] 9 11:26:45 Social History Question Answer Notes LastModified by Organizat ion Details LastModified Time Tobacco Smoking Status Never Smoker Yesi Espositotheresa cool [facility] 07/31/2017 08:42:38 What Was The [...] Diagnosis Note [id number] Juli Lacy NP, [facility] [address] [facility],[place] [address] 07/31/2017 14:17:21 08/01/2017 08:15:10 Costal chondritis 77262413 M94.0 Ibu 600mg TID prn, avoid weighted exercises in pool X 1 week Fibrocysti c disease of breast 44634896 N60.19 stable Gastroesop hageal reflux disease 049592275 K21.9 improved with weight loss Obesity 366244089 E66.9 improved with dietary changes, schedule CPE 2017 [id number] Juli Lacy NP, [place] [facility] [address] [facility],[place] [address] 11/12/2017 14:12:27 11/12/2017 16:26:30 Adult health examination 184319408 Z00.01 Fibrocysti c disease of breast 93645798 N60.19 stable, f/u tapestry [id number] Juli Lacy NP, S [facility] [address] [facility],[place] [address] 01/15/2018 10:40:31 01/15/2018 16:46:48 Acute low back pain 241772278 M54.5 [id number] Juli Lacy NP, S [facility] [address] [facility],[place] [address] 05/22/2018 11:18:05 05/22/2018 12:16:32 Wry neck/torticollis 803972040 M43.6 Health Concerns Section Related Observation LastModified by Organization Detai ls LastModified Time None Recorded Concern Status LastModified by Organization Details LastModified Time None Recorded Advance Directives Directive None Recorded Payers Encounter Date Sequence Insurance Name Policy Number Policy Brunson Covered Member ID Brunson Member ID Guarantor Name 07/31/2017 1 [facility] [id number] Ashleigh Mcdonald [id number] Ashleigh Mcdonald 11/12/2017 1 [facility] [id number] Ashleigh Mcdonald [id number] Ashleigh Mcdonald 01/15/2018 1 [facility] [id number] Ashleigh Mcdonald [id number] Ashleigh Mcdonald 05/22/2018 1 [facility] [id number] Ashleigh Mcdonald [id number] Ashleigh Mcdonald Notes Date Note Type Note Provider Name a sd Address Organization Details Recorded Time 8 text/html Beginning to note discomfort ? over breastbone or right breast [facility] healthcare provider, noted right breast lump Last [...] actual weight Juli Lacy NP, [address] [place], [address], [facility] 07/31/2017 15:01:21 8 text/html Annual [...] then adopt Juli Lacy NP, [address] [place], [address], [facility] 11/12/2017 16:14:21 8 text/html Rolando [...] sit up Juli Lacy NP, [address] [place], [address], [facility] 01/15/2018 11:17:20 9 text/html Awoke yesterday with pain right side [facility]given diclofenac and flexeril pain went into shoulder and has tingling in arm to elbow Today right side of face feels like she had dental novacaine, no difficulty w/speech or eating Denies any injury/fall or change in activities Juli Lacy NP, [address] [facility], [place], [address], [facility] 05/22/2018 11:51:32 OBGyn Episode No OBEpisode recorded.
[2024-06-13 10:01] VITALS: BP 110/70; PULSE 88; RESP 10; TEMP 36.9; O2SAT 99; BMI 27.1
== END 2024-06-13 10:35 | disposition home or self-care (01) ==
LOC: HO.HMCFM 09:23
PROVIDERS: PCP Family Medicine; Visit Provider Family Medicine
DX: M19.041 Primary osteoarthritis, right hand (principal); M19.042 Primary osteoarthritis, left hand; T78.40XA Allergy, unspecified, initial encounter; M79.7 Fibromyalgia

== ENCOUNTER → 2024-06-13 09:22 | Outpatient (BNVA) | payer OTHER, SELFPAY | PROVIDERS: PCP Family Medicine; Visit Provider Family Medicine | DX: M19.041 Primary osteoarthritis, right hand (principal); M19.042 Primary osteoarthritis, left hand; T78.40XA Allergy, unspecified, initial encounter; M79.7 Fibromyalgia | CPT/HCPCS: 99212 ==

== ENCOUNTER 2024-07-04 10:43 | Outpatient (AMB) | payer OTHER, SELFPAY ==
--- NOTE | 2024-07-04 10:46 | MHC.OFFVIS ---
Vital Signs 07/04/24 10:47 Height 5 ft 5 in Weight 165 lb BMI 27.5 BP 104/66 Blood Pressure Location Rt brachial Position Sitting Pulse 76 Pulse Source Pulse Oximeter Pulse Oximetry (%) 98 Oxygen Delivery Method Room Air Intake Visit Reasons: Gerd CIC mgmt. S/P duo Intake Note: ESTABLISHED PATIENT for mgmt of GERD + CIC, s/p duo. CC; Pt denies any GI sx or concerns at this time. Conditions well managed with current tx. 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 S/P duo: Details: LAST VISIT: Abdominal discomfort H. pylori infection Postprandial epigastric pain Abdominal pain, LUQ (left upper quadrant) Constipation Plan Patient will continue taking omeprazole daily. Message sent to surgical schedulers to book upper endoscopy and colonoscopy for patient. Patient reports constipation. We will put her on senna daily. Increase fluid intake and activity to promote better bowel motility. Patient reports epigastric pain occasionally. Worse at night time. Avoid dietary triggers and late night snacking. Staying upright for minimum 3 hours after meals discussed with patient. Patient will be started on famotidine at bedtime. She can use it as needed. Patient will return in 2-3 months to discuss upper endoscopy and colonoscopy. She will call our office if she will have any GI concerning symptoms. Patient is agreeable to this plan and verbalizes understanding of instructions. She was given the opportunity to ask questions and all questions answered. ? Thank you for allowing me to participate in her care Medications New sennosides (Natural Senna Laxative) 17.2 mg (2 x 8.6 mg) PO BEDTIME 60 tabs 3RF constipation K59.00 famotidine (Pepcid) 20 mg PO BEDTIME 30 tabs 3RF K21.9 UPPER ENDOSCOPY AND COLONOSCOPY UPPER ENDOSCOPY Findings: Larynx: Normal Esophagus: GE junction at 35 cms. No esophagitis or Caal's. Stomach: Moderate diffuse gastric erythema - biopsies were obtained from the gastric body and antrum. Grade 2 flap valve on retroflexed examination of the cardia. Duodenum: Normal bulb and descending duodenum Biopsies were obtained from descending duodenum to check for celiac sprue Intervention: Biopsies as noted above COLONOSCOPY Findings: Terminal Ileum: Not evaluated Cecum: Mild melanosis coli throughout the colon Ascending Colon: Mild melanosis coli throughout the colon - random biopsies were obtained from the right colon Transverse Colon: Mild melanosis coli Descending Colon: A 4-5 mm sessile polyp - removed with a cold biopsy Mild melanosis coli Sigmoid Colon: Moderate diverticulosis and mild melanosis coli Rectum: Normal Ano-rectum: Perianal skin tags Colon preparation: Good after copious irrigation. [place] Bowel Preparation Scale Right colon; 2 Transverse colon: 2 Left colon; 2 (0 = Unprepared colon segment with mucosa not seen due to solid stool that cannot be cleared. 1 = Portion of mucosa of the colon segment seen, but other areas of the colon segment not well seen due to staining, residual stool and/or opaque liquid. 2 = Minor amount of residual staining, small fragments of stool and/or opaque liquid, but mucosa of colon segment seen well. 3 = Entire mucosa of colon segment seen well with no residual staining, small fragments of stool or opaque liquid) Impression and Post Procedure Diagnosis: Endoscopy Findings: ESOPHAGUS: Normal STOMACH: Moderate diffuse gastric erythema - biopsies were obtained from the gastric body and antrum. DUODENUM: Normal -biopsied to check for celiac sprue. Colonoscopy Findings: One small polyp was removed Mild melanosis coli throughout the entire colon - biopsies were obtained from the right colon. Moderate diverticulosis seen in the sigmoid colon Plan: Repeat Colonoscopy in 5 years if polyps are adenomatous and due to a hx of colon polyps (Dulcolax 10 mg daily x 5 days and adult colonoscope for future colonoscopies) A summary of above findings and relevant handouts were given to the patient. BIOPSIES SHOWED: A. Small bowel, biopsy: Small bowel mucosa with preserved villi and no specific change; no evidence of celiac disease. B. Gastric antrum, biopsy: Gastric antral mucosa with minimal chronic inactive gastritis; negative for H. pylori, intestinal metaplasia and dysplasia. C. Gastric body, biopsy: Gastric antral type mucosa with mild chronic inactive gastritis, cannot exclude atrophic gastritis with pre-pyloric metaplasia; negative for H. pylori, intestinal metaplasia and dysplasia D. Colon, right, biopsy: Colonic mucosa with lymphoid aggregate, and pigmented lamina propria macrophages consistent with melanosis coli. E. Colon, descending, polyp: Tubular adenoma; negative for high-grade dysplasia and carcinoma. Letter sent with biopsy results. Patient was placed on the recall list for repeat EGD (FU of gastric metaplasia) in 3 years and repeat colonoscopy in 5 years. TODAY'S VISIT Patient is here today for follow-up and to discuss upper endoscopy and colonoscopy results. Patient denies any ill effects from the prep, anesthesia or procedure itself. Patient reports to be feeling well, however reports left upper quadrant pain and abdominal bloating. Patient reports that she occasionally will be constipated. Currently patient is not anything to help her move her bowels. Her acid reflux is controlled with omeprazole in the morning and famotidine at bedtime. Patient had mild gastritis without esophagitis or Caal's. No H pylori on biopsy. Moderate diverticulosis in sigmoid colon and 1 tubular adenoma without high-grade dysplasia or carcinoma found. Endoscopy recommended in 3 years for re-evaluation and colonoscopy in 5 years. Patient denies melena, hematochezia, unintentional weight loss or ribbon like stools. Patient denies dyspepsia, dysphagia or odynophagia [facility] Medical History Anxiety and depression Fibromyalgia Iron deficiency anemia Cervical radicular pain Fall Right knee pain Sleep disorder, unspecified Excessive daytime sleepiness Pain of right sacroiliac joint Disc degeneration, lumbar Osteoarthritis of lower back Spondylosis of lumbosacral spine with radiculopathy Surgical History (Updated 07/04/24 @ 10:51 by HERMANN Ballesteros) History of esophagogastroduodenoscopy (EGD) History of colonoscopy H/O cardiac radiofrequency ablation History of tubal ligation Family History Father Liver cancer Mother Hypertension Macular degeneration Son Drug addict Other Substance use disorder Social History Household Members: Spouse Household Members Other:: GRANDDAUGHTER Housing: House Alcohol intake: never Patient Tobacco Use Status: Never used Tobacco e-Cigarette/Vaping Use: Never Used Second Hand Smoke Exposure: No service: No Current occupational status: previously employed 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 Current occupational exposures/hazards: No Cognitive needs: No Hearing needs: No Vision needs: No (glasses) Review of Systems Const Denies weight gain and Denies weight loss ENT Reports no additional complaints, Denies dysphagia and Denies odynophagia Card Reports no additional complaints Resp Reports no additional complaints GI Reports abdominal pain (Epigastric, LUQ,occasional), Denies belching, Denies melena, Reports bloating, Denies change in bowel habits, Reports constipation, Denies dysphagia, Denies excessive flatus, Denies dyspepsia, Reports heartburn (Occasional), Denies diarrhea, Denies loose stools, Denies nausea, Denies odynophagia and Denies vomiting Reports no additional complaints Musc Reports no additional complaints Neuro Reports no additional complaints Psych Reports no additional complaints Endo Reports no additional complaints Physical Exam Vital Signs: Last Vital Signs Pulse 76 07/04/24 10:47 BP 104/66 07/04/24 10:47 Pulse Ox 98 07/04/24 10:47 Oxygen Delivery Method Room Air 07/04/24 10:47 BMI result Body Mass Index 27.5 Const General: healthy appearing, no acute distress and well developed Nutritional Appearance: well nourished Orientation/consciousness: patient oriented x3 Resp Effort & Inspection: normal respiratory effort, able to speak in complete sentences, no tracheal deviation and symmetric chest movement Auscultation: clear to auscultation bilaterally Cardio Rate: regular rate GI Inspection: Yes normal to inspection and No distended Palpation (GI): Soft to palpation, not firm, nontender and No hepatosplenomegaly present Auscultation: normal bowel sounds General: Yes no CVA tenderness Back/Spine/Pelvis Back: no CVA tenderness Skin General skin exam: elasticity normal, turgor normal and dry skin Neuro General: patient oriented x3 Psych Appearance: grossly normal Mental Status: mental status grossly normal Assessment & Plan Assessment & Plan (1) Abdominal discomfort: Code(s): R10.9 - Unspecified abdominal pain Category: Medical (2) H. pylori infection: Code(s): A04.8 - Other specified bacterial intestinal infections Category: Medical (3) Postprandial epigastric pain: Code(s): R10.13 - Epigastric pain (4) Abdominal pain, LUQ (left upper quadrant): Code(s): R10.12 - Left upper quadrant pain (5) Constipation: Code(s): K59.00 - Constipation, unspecified Qualifiers: Constipation type: slow transit constipation Qualified Code(s): K59.01 - Slow transit constipation Plan Patient will continue taking omeprazole in the morning and famotidine at bedtime. Avoid dietary triggers and late night snacking. Staying upright for minimum 3 hours after meals discussed with patient. Patient will have upper endoscopy in 3 years, sooner if clinically necessary. Patient reports occasional constipation. Will send her script for Dulcolax. Increase fluid intake and activity to promote better bowel motility. Colonoscopy 1 tubular adenoma without high-grade dysplasia or carcinoma. Colonoscopy in 5 years. Patient will follow-up in 4 months, sooner on as needed basis. She is agreeable to this plan and verbalizes understanding of instructions. She was given the opportunity to ask questions and all questions answered Medications: New bisacodyl (Dulcolax (bisacodyl)) 10 mg (2 x 5 mg) PO BEDTIME 180 tabs 4RF Refilled omeprazole 20 mg PO DAILY 90 caps 3RF K21.9 - Gastro-esophageal reflux disease without esophagitis famotidine (Pepcid) 20 mg PO BEDTIME 90 tabs 3RF K21.9 - Gastro-esophageal reflux disease without esophagitis Coding Level of Care Code Est Pt Level 3 (49289) Diagnoses Abdominal discomfort R10.9 H. pylori infection A04.8 Postprandial epigastric pain R10.13 Abdominal pain, LUQ (left upper quadrant) R10.12 Slow transit constipation K59.01 Constipation type: slow transit constipation Time Spent (min) 30 Comment 20 minutes spent with patient and additional 10 minutes spent reviewing her records in the
[2024-07-04 10:47] VITALS: BP 104/66; PULSE 76; O2SAT 98; BMI 27.5
--- OUTSIDE RECORDS SUMMARY | 2024-07-04 11:14 | XMS_ITS | Data Portability ---
Author Organization [facility] Address [address] [place] [address] Assessment No assessment recorded. Plan of Treatment Reminders Order Date Submit Date Provider Last Modified By Organization Details Last Modified Time Details Appointments None recorded. Lab CMP, serum or plasma 2017 018 [email or web address] Not available 8 07:08:59 CBC 2017 018 [email or web address] Not available 8 07:08:59 Referral None recorded. Procedures None recorded. Surgeries None recorded. Imaging XR, cervical spine 2018 019 [facility] (Imaging), [address] [place] [address], [address], 9 17:59:16 XR, lumbar spine 2017 018 [email or web address] Not available 8 08:15:22 Medication Orders None recorded. Patient TargetsNo targets recorded. Patient Instructions Encounter Date Encounter Id Patient Instructions Last Modified By Organization Details Last Modified Time 11/12/2017 [id number] Work physical an d foster forms completed maninder Not available 11/12/2017 16:12:50 Continue healthy exercise maninder Not available 11/12/2017 16:13:33 01/15/2018 [id number] acute low back pain: exercises maninder Not available 01/15/2018 11:17:17 Call if no relief maninder Not availabl e 01/15/2018 11:16:47 Work note 01/15-01/18/18 provided maninder Not available 01/15/2018 11:17:00 05/22/2018 [id number] neck pain: care instructions maninder Not available [...] billie spine No observ ation record ed. [facility] (Medical Records) [address] [place] [address], [address], 05/24/2018 12:16:41 Result Notes None recorded. Problems Name Problem SNOMED Code Status Onset Date Resolution Date Notes Provider Name and Address Organization Details Recorded Time Gastroesophage al reflux disease 571247824 Active 2017 Yesi cool [facility] 8 08:42:03 Obesity 426117184 Active 2017 Yesi cool [facility] 8 08:42:26 Problem Notes None recorded. Procedures Surgical History Date Name Laterality Status Provider Name and Address Organization Details Recorded Time Tubal Ligation completed Juli Lacy NP, [address] [facility], [place], [address], [facility] 11/12/2017 15:00:00 Imaging Results Imaging Date Name Status LastModified by Organiz ation Details LastModified Time 07/12/2017 MAMMO, screening, bilateral completed [email or web address] Information not available 07/18/2017 14:49:29 01/10/2018 MAMMO, screening, digital, bilateral completed Information not available 01/21/2018 14:19:28 01/15/2018 XR, lumbar spine completed Information not available 01/21/2018 16:40:52 05/22/2018 XR, cervical spine completed [facility] (Medical Records) [address] [place], [address], 05/24/2018 12:16:41 Procedure Notes None recorded. Medical [...] Address Organization Details Last Updated DateTime 8 24689.7 8 g 86 /min 98 % 98 % 28.1 kg/m2 160.66 cm 122 mm[Hg] 74 mm[Hg] [facility] 8 14:22:47 Date Recorded Body height Body mass index (BMI) Body weight Heart rate Oxygen saturation Oxygen saturation in Arterial blood by Pulse oximetry Systolic blood pressure Diastolic blood pressure Provider Name and Address Organization Details Last Updated DateTime 8 160.66 cm 27.5 kg/m2 38523.4 9 g 88 /min 98 % 98 % 100 mm[Hg] 66 mm[Hg] [facility] 8 14:36:54 Date Recorded Body height Body mass index (BMI) Body weight Heart rate Oxygen saturation Oxygen saturation in Arterial blood by Pulse oximetry Body temperature Systolic blood pressure Diastolic blood pressure Provider Name and Address Organization Details Last Updated DateTime 8 160.66 cm 27.4 kg/m2 24901.4 1 g 97 /min 98 % 98 % 98 [degF] 100 mm[Hg] 70 mm[Hg] [facility] 8 10:48:27 Date Recorded Body height Body mass index (BMI) Body weight Heart rate Oxygen saturation Oxygen saturation in Arterial blood by Pulse oximetry Systolic blood pressure Diastolic blood pressure Provider Name and Address Organization Details Last Updated DateTime 9 160.66 cm 26.8 kg/m2 61750.8 4 g 83 /min 98 % 98 % 118 mm[Hg] 70 mm[Hg] Arcelia Horton [facility] 9 11:26:45 Social History Question Answer Notes LastModified by Organizat ion Details LastModified Time Tobacco Smoking Status Never Smoker Yesi Espositotheresa cool [facility] 07/31/2017 08:42:38 What Was The Date Of Your Most Recent Tobacco Screening? 05/22/2018 Information n ot available 09/19/2018 Sex: Unknown Functional Status None recorded. Mental Status None recorded. Family History Relationship Description Onset Age of this Age Resolved Age Notes LastModified by Organization Details LastModified Time Mother Hypertensive disorder macula r degene norbert dickens Not available 11/12/2017 14:59:39 Medical History [...] Code Diagnosis ICD10 Code Diagnosis Note [id number] Loc Campos [facility] Internal Medicine [address] [facility],[place] [address] 07/31/2017 14:17:21 08/01/2017 08:15:10 Costal chondritis 84199403 M94.0 Ibu 600mg TID prn, avoid weighted exercises in pool X 1 week Fibrocysti c disease of breast 59615307 N60.19 stable Gastroesop hageal reflux disease 450848814 K21.9 improved with weight loss Obesity 837604611 E66.9 improved with dietary changes, schedule CPE 2017 [id number] Loc Campos [facility] Internal Medicine [address] [facility],[place] [address] 11/12/2017 14:12:27 11/12/2017 16:26:30 Adult health examination 771182758 Z00.01 Fibrocysti c disease of breast 21532203 N60.19 stable, f/u tapestry 25153 Loc Myrtle Campos [facility] Internal Medicine [address] [facility] [place] [address] 01/15/2018 10:40:31 01/15/2018 16:46:48 Acute low back pain 445863411 M54.5 [id number] Loc Myrtle Campos [facility] Internal Medicine [address] [facility],[place] [address] 05/22/2018 11:18:05 05/22/2018 12:16:32 Wry neck/torticollis 374684397 M43.6 Health Concerns Section Related Observation LastModified by Organization Detai ls LastModified Time None Recorded Concern Status LastModified by Organization Details LastModified Time None Recorded Advance Directives Directive None Recorded Payers Encounter Date Sequence Insurance Name Policy Number Policy Brunson Covered Member ID Brunson Member ID Guarantor Name 07/31/2017 1 [facility] [id number] Ashleigh Mcdonald [id number] Ashleigh Mcdonald 11/12/2017 1 [facility] [id number] Ashleigh Mcdonald [id number] Ashleigh Mcdonald 01/15/2018 1 [facility] [id number] Ashleigh Mcdonald [id number] Ashleigh Mcdonald 05/22/2018 1 [facility] [id number] Ashleigh Mcdonald [id number] Ashleigh Mcdonald Notes Date Note Type Note Provider Name a wa Address Organization Details Recorded Time 8 text/html Beginning to note discomfort ? over breastbone or right breast [facility] provider, noted right breast lump Last [...] actual weight Juli Lacy NP, [address] [place], [address], [facility] 07/31/2017 15:01:21 8 [...] then adopt Juli Lacy NP, [address] [place], [address], [facility] 11/12/2017 16:14:21 8 [...] sit up Juli Lacy NP, [address] [place], [address], [facility] 01/15/2018 11:17:20 9 text/html Awoke yesterday with pain right side neck [facility]given diclofenac and flexeril pain went into shoulder and has tingling in arm to elbow Today right side of face feels like she had dental novacaine, no difficulty w/speech or eating Denies any injury/fall or change in activities Juli Lacy NP, [address] [place], [address], [place] [facility] [facility] 05/22/2018 11:51:32 OBGyn Episode No OBEpisode recorded.
--- OUTSIDE RECORDS SUMMARY | 2024-07-04 11:14 | XMS_ITS | Data Portability ---
Author Organization [facility] [address] Address [address] [place] [address] Assessment No assessment recorded. Plan of Treatment [...] By Organization Details Last Modified Time 05/25/2022 [id number] This physical does not replace the annual [...] Geovanny Navarrete, [address] [address] [place], [address], [place] - [facility] 05/25/2022 11:01:52 Past Encounters Encounter ID Performer Location Encounter Start Date Encounter Closed Date Diagnosis/Indication Diagnosis SNOMED-CT Code Diagnosis ICD10 Code Diagnosis Note [id number] [address] [place] [address] 06/18/2020 12:53:51 06/18/2020 15:06:48 [id number] [address] [place] [address] 01/13/2018 13:40:42 01/13/2018 14:53:26 [id number] [address] [place] [address] 05/21/2018 15:20:53 05/21/2018 16:28:57 [id number] [address] [place] [address] 09/30/2016 10:25:44 09/30/2016 11:36:45 [id number] [address] [place] [address] 10/14/2018 18:03:58 10/14/2018 19:07:41 [id number] [address] [place] [address] 03/26/2017 09:55:37 03/26/2017 11:00:48 [id number] Geovanny Navarrete NP [address] [place] [address] 05/25/2022 08:53:10 05/25/2022 11:13:46 History and physical examination, pre-employment 375440140 Z02.1 [id number] Geovanny Navarrete NP [address] [place] [address] 05/25/2022 10:37:35 05/25/2022 11:13:53 History and physical examination, pre-employment 749342340 Z02.1 Health Concerns Section Related Observation LastModified by Organization Detai ls LastModified Time None Recorded Concern Status LastModified by Organization Details LastModified Time None Recorded Advance Directives Directive None Recorded Payers Insurance Date Sequence Insurance Name Policy Number Policy Brunson Covered Member ID Brunson Member ID Guarantor Name 06/01/2022 PAY AT TOS Ashleigh Mcdonald PHYSICAL PHYSICAL Ashleigh Mcdonald 05/25/2022 DO NOT USE Ashleigh Mcdonald PHYSICAL PHYSICAL Ashleigh Mcdonald 06/24/2022 1 [facility] (MEDICAID HMO) [employer] Ashleigh Mcdonald [id number] Ashleigh Mcdonald 05/25/[address] [facility] [id number] Ashleigh Mcdonald [id number] Ashleigh Mcdonald Notes Date Note Type Note Provider Name a nd Address Organization Details Recorded Time 05/25/2022 text/html physical Geovanny AMBROSE Navarrete [address] [place], [address], [place] - [facility] 05/25/2022 10:41:08 OBGyn Episode No OBEpisode recorded.
== END 2024-07-04 11:21 | disposition home or self-care (01) ==
LOC: HO.HGI 10:44
PROVIDERS: PCP Family Medicine; Visit Provider Nurse Practitioner Family
DX: R10.9 Unspecified abdominal pain (principal); A04.8 Other specified bacterial intestinal infections; R10.13 Epigastric pain; R10.12 Left upper quadrant pain; K59.01 Slow transit constipation
CPT/HCPCS: 99213

== ENCOUNTER → 2024-07-04 10:43 | Outpatient (BNVA) | payer OTHER, SELFPAY | PROVIDERS: PCP Family Medicine; Visit Provider Nurse Practitioner Family | DX: K21.9 Gastro-esophageal reflux disease without esophagitis (principal); K59.04 Chronic idiopathic constipation; A04.8 Other specified bacterial intestinal infections; R10.13 Epigastric pain; R10.12 Left upper quadrant pain; K59.01 Slow transit constipation | CPT/HCPCS: 99212 ==

== ENCOUNTER 2024-07-10 08:07 | Outpatient (REF) | payer OTHER, SELFPAY ==
--- OUTSIDE RECORDS SUMMARY | 2024-07-10 08:12 | XMS_ITS | Data Portability ---
Author Organization [facility] [address] Address [address] [place] [address] Assessment No assessment recorded. Plan of Treatment [...] By Organization Details Last Modified Time 05/25/2022 [id number] This physical does not replace the annual [...] Geovanny Navarrete, [address] [place], [address], [place] - [facility] 05/25/2022 11:01:52 Past Encounters Encounter ID Performer Location Encounter Start Date Encounter Closed Date Diagnosis/Indication Diagnosis SNOMED-CT Code Diagnosis ICD10 Code Diagnosis Note [id number] [address] [place] [address] 06/18/2020 12:53:51 06/18/2020 15:06:48 [id number] [address] [place] [address] 01/13/2018 13:40:42 01/13/2018 14:53:26 [id number] [address] [place] [address] 05/21/2018 15:20:53 05/21/2018 16:28:57 [id number] [address] [place] [address] 09/30/2016 10:25:44 09/30/2016 11:36:45 [id number] [address] [place] [address] 10/14/2018 18:03:58 10/14/2018 19:07:41 [id number] [address] [place] [address] 03/26/2017 09:55:37 03/26/2017 11:00:48 [id number] Geovanny Navarrete NP [address] [place] [address] 05/25/2022 08:53:10 05/25/2022 11:13:46 History and physical examination, pre-employment 455005914 Z02.1 [id number] Geovanny Navarrete NP [address] [place] [address] 05/25/2022 10:37:35 05/25/2022 11:13:53 History and physical examination, pre-employment 676815685 Z02.1 Health Concerns Section Related Observation LastModified [...] Mcdonald PHYSICAL PHYSICAL Ashleigh Mcdonald 06/24/2022 1 [facility] HEALTH NET PLAN (MEDICAID HMO) [employer] Ashleigh Mcdonald [id number] Ashleigh Mcdonald 05/25/2022 1 [facility] [id number] Ashleigh Mcdonald [id number] Ashleigh Mcdonald Notes Date Note Type Note Provider Name a nd Address Organization Details Recorded Time 05/25/2022 text/html physical Geovanny AMBROSE Navarrete [address] [place], [address], [place] - [facility] 05/25/2022 10:41:08 OBGyn Episode No OBEpisode recorded.
--- OUTSIDE RECORDS SUMMARY | 2024-07-10 08:12 | XMS_ITS | Data Portability ---
Author Organization [facility] Address [address] [place] [address] Assessment No assessment recorded. Plan of Treatment Reminders Order Date Submit Date Provider Last Modified By Organization Details Last Modified Time Details Appointments None recorded. Lab CMP, serum or plasma 2017 018 [email or web address] Not available 8 07:08:59 CBC 2017 018 [email or web address] Not available 8 07:08:59 Referral None recorded. Procedures None recorded. Surgeries None recorded. Imaging XR, cervical spine 2018 019 [facility] (Imaging), [address] [place] [address], [address], 9 17:59:16 XR, lumbar spine 2017 018 [email or web address] Not available 8 08:15:22 Medication Orders None recorded. Patient TargetsNo targets recorded. Patient Instructions Encounter Date Encounter Id Patient Instructions Last Modified By Organization Details Last Modified Time 11/12/2017 [id number] Work physical an d foster forms completed maninder Not available 11/12/2017 16:12:50 Continue healthy exercise maninder Not available 11/12/2017 16:13:33 01/15/2018 [id number] acute low back pain: exercises maninder Not available 01/15/2018 11:17:17 Call if no relief maninder Not availabl e 01/15/2018 11:16:47 Work note 01/15-01/18/18 provided maninder Not available 01/15/2018 11:17:00 05/22/2018 [id number] neck pain: care instructions maninder Not available [...] billie spine No observ ation record ed. [facility] (Medical Records) [address] [place] [address], [address], 05/24/2018 12:16:41 Result Notes None recorded. Problems Name Problem SNOMED Code Status Onset Date Resolution Date Notes Provider Name and Address Organization Details Recorded Time Gastroesophage al reflux disease 551851827 Active 2017 Yesi cool [facility] 8 08:42:03 Obesity 415093724 Active 2017 Yesi cool [facility] 8 08:42:26 Problem Notes None recorded. Procedures Surgical History Date Name Laterality Status Provider Name and Address Organization Details Recorded Time Tubal Ligation completed Juli Lacy NP, [address] [facility], [place], [address], [facility] 11/12/2017 15:00:00 Imaging Results Imaging Date Name Status LastModified by Organiz ation Details LastModified Time 07/12/2017 MAMMO, screening, bilateral completed [email or web address] Information not available 07/18/2017 14:49:29 01/10/2018 MAMMO, screening, digital, bilateral completed Information not available 01/21/2018 14:19:28 01/15/2018 XR, lumbar spine completed Information not available 01/21/2018 16:40:52 05/22/2018 XR, cervical spine completed [facility] (Medical Records) [address] [place], [address], 05/24/2018 12:16:41 Procedure Notes None recorded. Medical [...] Address Organization Details Last Updated DateTime 8 34337.7 8 g 86 /min 98 % 98 % 28.1 kg/m2 160.66 cm 122 mm[Hg] 74 mm[Hg] [facility] 8 14:22:47 Date Recorded Body height Body mass index (BMI) Body weight Heart rate Oxygen saturation Oxygen saturation in Arterial blood by Pulse oximetry Systolic blood pressure Diastolic blood pressure Provider Name and Address Organization Details Last Updated DateTime 8 160.66 cm 27.5 kg/m2 57399.4 9 g 88 /min 98 % 98 % 100 mm[Hg] 66 mm[Hg] [facility] 8 14:36:54 Date Recorded Body height Body mass index (BMI) Body weight Heart rate Oxygen saturation Oxygen saturation in Arterial blood by Pulse oximetry Body temperature Systolic blood pressure Diastolic blood pressure Provider Name and Address Organization Details Last Updated DateTime 8 160.66 cm 27.4 kg/m2 11166.4 1 g 97 /min 98 % 98 % 98 [degF] 100 mm[Hg] 70 mm[Hg] [facility] Internal Medicine 8 10:48:27 Date Recorded Body height Body mass index (BMI) Body weight Heart rate Oxygen saturation Oxygen saturation in Arterial blood by Pulse oximetry Systolic blood pressure Diastolic blood pressure Provider Name and Address Organization Details Last Updated DateTime 9 160.66 cm 26.8 kg/m2 11447.8 4 g 83 /min 98 % 98 % 118 mm[Hg] 70 mm[Hg] Arcelia Horton [facility] Internal Medicine 9 11:26:45 Social History Question Answer Notes LastModified by Organizat ion Details LastModified Time Tobacco Smoking Status Never Smoker Yesi Espositotheresa cool [facility] 07/31/2017 08:42:38 What Was The [...] ICD10 Code Diagnosis Note [id number] Loc Campos [facility] Internal Medicine [address] [facility],[place] [address] 07/31/2017 14:17:21 08/01/2017 08:15:10 Costal chondritis 57266316 M94.0 Ibu 600mg TID prn, avoid weighted exercises in pool X 1 week Fibrocysti c disease of breast 42772620 N60.19 stable Gastroesop hageal reflux disease 619847784 K21.9 improved with weight loss Obesity 811908235 E66.9 improved with dietary changes, schedule CPE 2017 [id number] Loc Campos [facility] Internal Medicine [address] [facility],[place] [address] 11/12/2017 14:12:27 11/12/2017 16:26:30 Adult health examination 840896965 Z00.01 Fibrocysti c disease of breast 88678950 N60.19 stable, f/u tapestry 57056 Loc Myrtle Campos [facility] Internal Medicine [address] [facility] [place] [address] 01/15/2018 10:40:31 01/15/2018 16:46:48 Acute low back pain 111301210 M54.5 88247 Loc Myrtle Capmos [facility] Internal Medicine [address] [facility],[place] [address] 05/22/2018 11:18:05 05/22/2018 12:16:32 Wry neck/torticollis 965473573 M43.6 Health Concerns Section Related Observation LastModified by Organization Detai ls LastModified Time None Recorded Concern Status LastModified by Organization Details LastModified Time None Recorded Advance Directives Directive None Recorded Payers Encounter Date Sequence Insurance Name Policy Number Policy Brunson Covered Member ID Brunson Member ID Guarantor Name 07/31/2017 1 [facility] [id number] Ashleigh Mcdonald [id number] Ashleigh Mcdonald 11/12/2017 1 [facility] [id number] Ashleigh Mcdonald [id number] Ashleigh Mcdonald 01/15/2018 1 [facility] [id number] Ashleigh Mcdonald [id number] Ashleigh Mcdonald 05/22/2018 1 [facility] [id number] Ashleigh Mcdonald [id number] Ashleigh Mcdonald Notes Date Note Type Note Provider Name a dc Address Organization Details Recorded Time 8 text/html [...] actual weight Juli Lacy NP, [address] [place], [address], [facility] 07/31/2017 15:01:21 8 text/html Annual [...] then adopt Juli Lacy NP, [address] [place], [address], [facility] 11/12/2017 16:14:21 8 text/html Rolando [...] sit up Juli Lacy NP, [address] [place], [address], [facility] 01/15/2018 11:17:20 9 text/html Awoke yesterday with pain right side [facility]given diclofenac and flexeril pain went into shoulder and has tingling in arm to elbow Today right side of face feels like she had dental novacaine, no difficulty w/speech or eating Denies any injury/fall or change in activities Juli Lacy NP, [address] [place], [address], [place] [facility] 05/22/2018 11:51:32 OBGyn Episode No OBEpisode recorded.
== END 2024-07-10 08:08 | disposition home or self-care (01) ==
LOC: HO.MAMMO 08:07
PROVIDERS: PCP Family Medicine; Visit Provider Family Medicine
DX: Z12.31 Encounter for screening mammogram for malignant neoplasm of breast (principal)
CPT/HCPCS: 77063; 77067

== ENCOUNTER → 2024-07-10 08:30 | Outpatient (BNV) | payer OTHER, SELFPAY | PROVIDERS: PCP Family Medicine; Visit Provider Internal Medicine | DX: Z12.31 Encounter for screening mammogram for malignant neoplasm of breast (principal) | CPT/HCPCS: 77063; 77067 ==